=== PATIENT | female | born 2000 | race Caucasian/White ===

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

== ENCOUNTER → 2018-05-02 | Outpatient (CLI) | payer BC ==
--- NOTE | 2018-05-02 16:54 | Diagnostic Imaging Report ---
INDICATION: patient, anatomical survey. TECHNIQUE: Multiple real-time grayscale images were obtained over the gravid uterus. COMPARISON: None during this . FINDINGS: A single live intrauterine fetus is seen measuring 20 weeks 6 days in size by composite measurements. Cervical length is 6 cm. Fetus is in variable presentation. Placenta is anterior and grade 2. The inferior portion of the placenta is very close to the cervical os. heart rate is 144 beats per minute and regular. survey showed normal-appearing kidneys, bladder, stomach, intracranial ventricles, and four-chamber heart view. Three-vessel cord and cord insertion appear normal. spine appeared unremarkable. The maternal adnexa could not be visualized. There is no free fluid. Biometrical measurements are as follows: Biparietal 4.79 cm, age 20 weeks 4 days. Head circumference 17.59 cm, age 20 weeks 1 days. Abdominal circumference 16.39 cm, age 21 weeks 4 days. Femur length 3.44 cm, age 20 weeks 6 days. Sonographic estimate age: 20 weeks 6 days. Sonographic estimated date of delivery: 09/13/2018. Estimated Weight: 394 gm (+/- 58 gm). LMP percentile: 63%. heart rate: 144 beats per minute. number: 1 of 1. IMPRESSION: Single live intrauterine fetus measuring 20 weeks 6 days in size by composite measurements. The placenta is anterior and appears to be at or partially overlying the internal cervical os, recommend followup later in to exclude placenta previa or low-lying placenta. survey showed no detectable anatomic abnormalities. Dictated by: Dictated on workstation # [id number]
== END ==
LOC: RAD 15:28
PROVIDERS: ATTEND Obstetrics & Gynecology
DX: Z36.89 Encounter for other specified antenatal screening (principal); Z3A.20 20 weeks gestation of pregnancy
CPT/HCPCS: 76805

== ENCOUNTER 2018-06-25 21:30 | Outpatient (CLI) | payer BC ==
[~2018-06-25] VITALS: Ht 165.1 cm; Wt 89.0 kg
--- NOTE | 2018-06-25 21:35 | NUR ---
MACKENZIE MILLER presented to unit via ambulatory from ED, accompanied by s/o, with c/o NO MOVEMENT SINCE YESTERDAY. MACKENZIE MILLER weighed, gowned, voided, and to bed. EFHM and TOCO applied, VS taken. MACKENZIE MILLER oriented to bed controls, call light, TV, heat, and A/C controls.
[2018-06-25 22:00] VITALS: BP 131/75
[2018-06-25] MEDS ORDERED: PREN-53 PO (23:07)
[2018-06-25] MEDS ORDERED: ACET-789 PO (23:07)
--- NOTE | 2018-06-25 23:15 | NUR ---
Pt discharge packet given and explained, understanding voiced, denies needs or concerns, noted provided for work upon request. Pt ambulatory off unit at this time, accompanied by s.o.
== END 2018-06-25 23:15 | disposition home or self-care (01) ==
LOC: WSo 21:30 → LDRP 21:31 → WSo 23:15
PROVIDERS: ATTEND Obstetrics & Gynecology
DX: O36.8130 Decreased fetal movements, third trimester, not applicable or unspecified (principal); Z3A.28 28 weeks gestation of pregnancy
CPT/HCPCS: 99213

== ENCOUNTER 2018-08-19 18:13 | Outpatient (CLI) | payer BC ==
[~2018-08-19] VITALS: Ht 167.6 cm; Wt 88.1 kg
--- NOTE | 2018-08-19 18:01 | NUR ---
MACKENZIE MILLER presented to unit via AMBULATORY from HOME, accompanied by S/O, with c/o CONTRACTIONS. MACKENZIE MILLER weighed, gowned, voided, and to bed. EFHM and TOCO applied, VS taken. MACKENZIE MILLER oriented to bed controls, call light, TV, heat, and A/C controls.
[~2018-08-19 18:13] MED LIST changes: +ACET-789 PO
[2018-08-19 18:30] VITALS: BP 121/66
[2018-08-19] MEDS ORDERED: D5 LR IV SOLUTION 1,000 ML IV ONE (19:14)
[2018-08-19] MEDS ORDERED: ONDANSETRON 4 MG/2 ML (SDV) Z0FRAN ONE (19:14)
[2018-08-19 19:16] LABS: BILIRUBIN,URINE NEGATIVE (NEGATIVE); CLARITY,URINE SLIGHTLY CLOUDY; COLOR,URINE AMBER; GLUCOSE, URINE (UA) NEGATIVE (NEGATIVE); KETONES,URINE 2+ (NEGATIVE); LEUKOCYTE ESTERASE ,URINE 1+ (NEGATIVE); NITRITE,URINE NEGATIVE (NEGATIVE); PH,URINE 6 (5-9); PROTEIN,URINE 2+ (NEGATIVE); UROBILINOGEN,URINE 1 MG/DL (NORMAL)
--- NOTE | 2018-08-19 19:16 | NUR ---
DR. WEINBERG NOTIFIED OF PT ARRIVAL, GESTATION, , R C/S, C/O, REVIEW OF STRIP. NEW ORDERS RECEIVED.
[2018-08-19 19:30] LABS: BACTERIA,URINE FEW /HPF; SQUAMOUS EPITHELIAL CELL,UR >50 /HPF
[2018-08-19] MEDS ORDERED: ONDANSETRON 4 MG/2 ML (SDV) Z0FRAN IVP ONE (19:30)
[2018-08-19] MEDS ORDERED: LOPERAMIDE 2 MG (IMODIUM) CAP PO NR (19:30)
[2018-08-19] MEDS ORDERED: D5 LR IV SOLUTION 1,000 ML IV SCH (19:30)
[2018-08-19 20:00] VITALS: BP 115/63
--- NOTE | 2018-08-19 20:09 | NUR ---
lab results called to . no new orders received.
--- NOTE | 2018-08-19 21:10 | NUR ---
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 notified. Discharge order received.
--- NOTE | 2018-08-19 21:30 | NUR ---
Discharge instructions verbalized with pt. pt verbalized understanding. Pt will follow up with on Sunday.
== END 2018-08-19 21:30 | disposition home or self-care (01) ==
LOC: WSo 18:13 → LDRP 18:13 → WSo 21:30
PROVIDERS: ATTEND Obstetrics & Gynecology
DX: O47.03 False labor before 37 completed weeks of gestation, third trimester (principal); Z3A.36 36 weeks gestation of pregnancy
CPT/HCPCS: 81000; 96361; 96374; 99213

== ENCOUNTER 2018-08-27 12:09 | Outpatient (CLI) | payer BC ==
[2018-08-27] VITALS (8 sets, daily range): BP systolic 112–135; BP diastolic 57–83
[~2018-08-27] VITALS: Ht 167.6 cm; Wt 89.4 kg
--- NOTE | 2018-08-27 11:55 | NUR ---
MACKENZIE MILLER presented to unit via ambulation from home, with c/o POSSIBLE WATER BREAK. MACKENZIE MILLER weighed, gowned, voided, and to bed. EFHM and TOCO applied, VS taken. MACKENZIE MILLER oriented to bed controls, call light, TV, heat, and A/C controls.
--- NOTE | 2018-08-27 12:50 | NUR ---
DR. BERMUDEZ REVIEWING STRIP. PLAN TO KEEP NPO AND CONTINUE TO MONITOR.
--- NOTE | 2018-08-27 12:54 | NUR ---
Dr. Saha called and notified of pt arrival, c/o ctx last noc, possible SROM this am around 1000. Pt also c/o N/V and "just not feeling well". notified of FHR, ctx pattern, SVE, nitrazine, VS, and other assessment findings. will review FHR strip and return call with further orders.
--- NOTE | 2018-08-27 13:00 | NUR ---
VOMITED 50 CC BILE COLORED EMESIS. PAPER CHANGE ON MONITOR.
[2018-08-27 13:09] LABS: BILIRUBIN,URINE NEGATIVE (NEGATIVE); CLARITY,URINE SLIGHTLY CLOUDY; COLOR,URINE YELLOW; GLUCOSE, URINE (UA) NEGATIVE (NEGATIVE); KETONES,URINE NEGATIVE (NEGATIVE); LEUKOCYTE ESTERASE ,URINE 3+ (NEGATIVE); NITRITE,URINE NEGATIVE (NEGATIVE); PH,URINE 8 (5-9); PROTEIN,URINE NEGATIVE (NEGATIVE); UROBILINOGEN,URINE NORMAL (NORMAL)
[2018-08-27 13:21] LABS: BACTERIA,URINE TRACE /HPF
--- NOTE | 2018-08-27 15:15 | NUR ---
Dr. Saha contacted and updated on pt status. Pt inquiring about plan, wondering about finding a crystallographer for other child. order to recheck cervix, if no cervical change and FHR reassuring, pt may D/C home.
--- NOTE | 2018-08-27 16:15 | NUR ---
Dr Saha notified of repeat SVE and UA results. Order to call in Keflex 500mg qid x7 days and d/c pt home.
--- NOTE | 2018-08-27 16:42 | NUR ---
Micheline called to [facility] in [place].
[2018-08-27] MEDS ORDERED: CEPH-507 PO (16:48)
--- NOTE | 2018-08-27 16:55 | NUR ---
Discharge instructions explained to pt with copy provided to pt. Pt notified of abx called to [facility] in [place]. Pt verbalizes understanding of instruction and signs to verify. Denies questions or concerns at this time. Ambulates self off unit accompanied by S.O. to private vehicle with all personal belongings. No s/s of distress noted.
--- NOTE | 2018-09-03 17:56 | Physician Query-Final Dx ---
YUMIKO LIGHT 09/03/18 1755: Clinic Account Progress/Dx Physician Query: Please give diagnosis Need dx and weeks of gestation Date of Service August 27, 2018 at 12:09 NEY BERMUDEZ DO 09/03/18 2109: Clinic Account Progress/Dx DIAGNOSIS: Diagnosis 37 weeks YUMIKO LIGHT September 03, 2018 17:55 NEY BERMUDEZ DO September 03, 2018 21:09
== END 2018-08-27 16:55 | disposition home or self-care (01) ==
LOC: WSo 12:09 → LDRP 12:10 → WSo 16:55
PROVIDERS: ATTEND Obstetrics & Gynecology
DX: O99.89 Other specified diseases and conditions complicating pregnancy, childbirth and the puerperium (principal); Z3A.37 37 weeks gestation of pregnancy
CPT/HCPCS: 81000; 87088; 99214

== ENCOUNTER 2018-09-04 14:30 | Outpatient (CLI) | payer BC, MEDICAID ==
[~2018-09-04] VITALS: Ht 167.6 cm; Wt 90.0 kg
[~2018-09-04 14:30] MED LIST changes: +CEPH-507 PO
[2018-09-04 14:44] VITALS: BP 135/91
== END 2018-09-04 15:32 | disposition home or self-care (01) ==
LOC: PREOP 14:30
PROVIDERS: ATTEND Obstetrics & Gynecology
DX: Z01.818 Encounter for other preprocedural examination (principal)
CPT/HCPCS: 87081

== ENCOUNTER 2018-09-04 16:32 | Outpatient (CLI) | payer BC, MEDICAID ==
[~2018-09-04] VITALS: Ht 167.6 cm; Wt 90.0 kg
--- NOTE | 2018-09-04 14:05 | NUR ---
MACKENZIE MILLER presented to unit via AMBULATION from DR CURTIS GARCIA, accompanied by S/O, with c/o ELEVATED BLOOD PRESSURE. MACKENZIE MILLER weighed, gowned, voided, and to bed. EFHM and TOCO applied, VS taken. MACKENZIE MILLER oriented to bed controls, call light, TV, heat, and A/C controls. Addendum: 09/04/18 at 1711 by LILY JIMENEZ RN WRONG TIME, 1620
--- NOTE | 2018-09-04 14:15 | NUR ---
INITIAL ASSESSMENT COMPLETED, VSS, NO DISTRESS NOTED, SEE INTERVENTIONS FOR DETAILED ASSESSMENTS, PT REPORTS N/V/D SINCE LAST SUNDAY, X 2-3 TIMES AT DAY. PT DENIES CONTRACTIONS, BLEEDING, RECENT INTERCOURSE OF DECREASED MOVEMENT. PLAN OF CARE EXPLAINED TO PT/SO, NO QUESTIONS NOTED, PT VERBALIZES UNDERSTANDING. Addendum: 09/04/18 at 1711 by LILY JIMENEZ RN CRISTINA TIME, 1640
[2018-09-04 16:29] VITALS: BP 130/72
[2018-09-04] MEDS ORDERED: D5 LR IV SOLUTION 1,000 ML IV ONE (16:44)
[2018-09-04 16:51] LABS: CLARITY,URINE SLIGHTLY CLOUDY; COLOR,URINE YELLOW; GLUCOSE, URINE (UA) NEGATIVE (NEGATIVE); KETONES,URINE 1+ (NEGATIVE); LEUKOCYTE ESTERASE ,URINE 3+ (NEGATIVE); NITRITE,URINE NEGATIVE (NEGATIVE); PH,URINE 6 (5-9); PROTEIN,URINE 2+ (NEGATIVE); UROBILINOGEN,URINE 4 MG/DL (NORMAL)
[2018-09-04] MEDS ORDERED: D5 LR IV SOLUTION 1,000 ML IV SCH (17:00)
[2018-09-04 17:05] LABS: BACTERIA,URINE FEW /HPF; BILIRUBIN,URINE 1+ (NEGATIVE); SQUAMOUS EPITHELIAL CELL,UR 25-50 /HPF
[2018-09-04 17:08] LABS: BASOPHILS % (AUTO) 0 % (0-10); EOSINOPHILS # (AUTO) 0.1 10^3/uL (0.0-0.3); EOSINOPHILS % (AUTO) 1 % (0-10); HEMATOCRIT 31 % (35-52); HEMOGLOBIN 10.4 G/DL (11.5-16.0); LYMPHOCYTES # (AUTO) 1.4 X 10^3 (1.0-4.0); LYMPHOCYTES % (AUTO) 17 % (12-44); MEAN CORPUSCULAR HEMOGLOBIN 26 PG (25-34); MEAN CORPUSCULAR HGB CONC 34 G/DL (32-36); MEAN CORPUSCULAR VOLUME 77 FL (80-99); MEAN PLATELET VOLUME 11.5 FL (7.4-10.4); MONOCYTES # (AUTO) 0.7 X 10^3 (0.0-1.0); MONOCYTES % (AUTO) 9 % (0-12); NEUTROPHILS % (AUTO) 73 % (42-75); PLATELET COUNT 217 10^3/uL (130-400); RED CELL DISTRIBUTION WIDTH 13.2 % (10.0-14.5); WHITE BLOOD COUNT 8.3 10^3/uL (4.3-11.0)
[2018-09-04 17:27] LABS: ALANINE AMINOTRANSFERASE 17 U/L (0-55); ALBUMIN 3.1 GM/DL (3.2-4.5); ALKALINE PHOSPHATASE 164 U/L (40-136); BILIRUBIN,TOTAL 0.5 MG/DL (0.1-1.0); BUN/CREATININE RATIO 8; CALCIUM 8.3 MG/DL (8.5-10.1); CARBON DIOXIDE 19 MMOL/L (21-32); CHLORIDE 106 MMOL/L (98-107); CREATININE SERUM 0.61 MG/DL (0.60-1.30); GFR ESTIMATED > 60; GLUCOSE 94 MG/DL (70-105); POTASSIUM 3.5 MMOL/L (3.6-5.0); SODIUM 138 MMOL/L (135-145)
[2018-09-04 17:30] VITALS: BP 117/59
[2018-09-04 18:00] VITALS: BP 117/56
[2018-09-04] MEDS ORDERED: ONDANSETRON 4 MG/2 ML (SDV) Z0FRAN IVP ONE (18:30)
--- NOTE | 2018-09-04 18:50 | NUR ---
PT MOVED TO [facility] WITH FAMILY FOR TORNADO WARNING.
[2018-09-04 18:51] VITALS: BP 121/61
[2018-09-04] MEDS ORDERED: CALCIUM CARBONATE 500 MG (TUMS) TAB.CHEW PO NR (19:15)
--- NOTE | 2018-09-04 20:54 | NUR ---
Pt ate and is feeling better. Orders received to discharge home. IV removed. Discharge instructions given. Pt verbalized understanding. Discharged with S/O by private vehicle.
--- NOTE | 2018-09-06 12:17 | Physician Query-Final Dx ---
ANDRES KAY 09/06/18 1217: Clinic Account Progress/Dx Physician Query: Dr Bermudez Please give a diagnosis and also include the weeks of gestation thank you Date of Service September 04, 2018 at 16:32 NEY BERMUDEZ DO 09/06/18 2145: Clinic Account Progress/Dx DIAGNOSIS: Diagnosis 38 weeks gestational htn nausea decreased movement ANDRES KAY September 06, 2018 12:17 NEY BERMUDEZ DO September 06, 2018 21:45
== END 2018-09-04 20:54 ==
LOC: WSo 16:32 → LDRP 16:32 → WSo 20:54
PROVIDERS: ATTEND Obstetrics & Gynecology
DX: O13.3 Gestational [pregnancy-induced] hypertension without significant proteinuria, third trimester (principal); O21.2 Late vomiting of pregnancy; O36.8130 Decreased fetal movements, third trimester, not applicable or unspecified; Z3A.38 38 weeks gestation of pregnancy
CPT/HCPCS: 36415; 80053; 81000; 82570; 84156; 84550; 85025; 86850; 86900; 86901; 87088; 96361; 96374; 99213

== ENCOUNTER 2018-09-10 10:10 | Inpatient (IN) | payer BC, MEDICAID ==
[2018-09-10] VITALS (7 sets, daily range): BP systolic 102–121; BP diastolic 67–93
[~2018-09-10] VITALS: Ht 167.6 cm; Wt 89.0 kg
--- NOTE | 2018-09-10 10:10 | NUR ---
MACKENZIE MILLER presented to unit via AMBULATORY from HOME, accompanied by S/O FOR SCHEDULED SECTION. MACKENZIE MILLER weighed, gowned, voided, and to bed. EFHM and TOCO applied, VS taken. MACKENZIE MILLER oriented to bed controls, call light, TV, heat, and A/C controls.
[2018-09-10] MEDS ORDERED: LACTATED RINGERS 1,000 ML IV PRN (10:20)
[2018-09-10] MEDS ORDERED: LACTATED RINGERS 1,000 ML IV ONE (10:22)
[2018-09-10] MEDS ORDERED: FAMOTIDINE 20MG/2ML IV (PEPCID) ONE (10:22)
[2018-09-10] MEDS ORDERED: METOCLOPRAMIDE INJ 10 MG/2 ML (REGLAN) ONE (10:22)
[2018-09-10] MEDS ORDERED: CITRIC ACID/SOB CIT (BICITRA) 30 ML UDC ONE (10:22)
[2018-09-10] MEDS ORDERED: METOCLOPRAMIDE INJ 10 MG/2 ML (REGLAN) IV ONE (10:30)
[2018-09-10] MEDS ORDERED: ceFAZolin 2 GM/50 ML NS 50 ML IV ONE (10:30)
[2018-09-10] MEDS ORDERED: FAMOTIDINE 20MG/2ML IV (PEPCID) IV ONE (10:30)
[2018-09-10] MEDS ORDERED: CITRIC ACID/SOB CIT (BICITRA) 30 ML UDC PO ONE (10:30)
[2018-09-10] MEDS ORDERED: CATHETER FLUSH 10 ML SYR IV PRN (10:30)
[2018-09-10 11:06] LABS: BASOPHILS % (AUTO) 0 % (0-10); EOSINOPHILS % (AUTO) 0 % (0-10); HEMATOCRIT 32 % (35-52); HEMOGLOBIN 10.6 G/DL (11.5-16.0); LYMPHOCYTES # (AUTO) 1.1 X 10^3 (1.0-4.0); LYMPHOCYTES % (AUTO) 12 % (12-44); MEAN CORPUSCULAR HEMOGLOBIN 25 PG (25-34); MEAN CORPUSCULAR HGB CONC 33 G/DL (32-36); MEAN CORPUSCULAR VOLUME 77 FL (80-99); MEAN PLATELET VOLUME 11.7 FL (7.4-10.4); MONOCYTES # (AUTO) 0.6 X 10^3 (0.0-1.0); MONOCYTES % (AUTO) 6 % (0-12); NEUTROPHILS # (AUTO) 7.3 X 10^3 (1.8-7.8); NEUTROPHILS % (AUTO) 81 % (42-75); PLATELET COUNT 225 10^3/uL (130-400); RED CELL DISTRIBUTION WIDTH 13.3 % (10.0-14.5)
--- OUTSIDE RECORDS SUMMARY | 2018-09-10 11:10 | XMS REPORT ---
Author Author DASHAWN BAUER Organization [facility] Address [address] [place] [address] Care Team Providers Care Phonograph Cartridge Assembler Name Role Phone DASHAWN BAUER Unavailable PROBLEMS Type Condition ICD9-CM Code ATV63-PX Code Onset Dates Condition Status SNOMED Code Problem Mixed obsessional thoughts and acts F42.2 Active 91152136 Problem Current mild episode of major depressive disorder without prior episode F32.0 Active 86231451 Problem Chronic otitis externa of both ears, unspecified type H60.63 Active 73010420 Problem Anxiety F41.9 Active 00889230 Problem Reactive depression F32.9 Active 16320344 Problem Gastroesophageal reflux disease, esophagitis presence not specified K21.9 Active 083595769 ALLERGIES No Information ENCOUNTERS Encounter Location Date Diagnosis [place] [id number] [place] [address] [id number] Nov, Abdominal pain, unspecified abdominal location R10.9 and Anxiety F41.9 [address] [id number] [place] [address] [id number] Oct, [place] [id number] [place] [address] [id number] Oct, test negative Z32.02 [facility] [id number] [place] [address] [id number] Oct, Acute diffuse otitis externa of left ear H60.312 [place] [id number] [place] [address] [id number] Oct, Acute diffuse otitis externa of right ear H60.311 [place] [id number] [place] [address] [id number] Sep, Sore throat J02.9 and Acute diffuse otitis externa of right ear H60.[address] [place] [id number] Sep, [facility] [id number] [place] [address] [id number] Sep, Sore throat J02.9 and Acute diffuse otitis externa of right ear H60.311 [facility] [address] [id number] Sep, [address] [id number] Sep, Anxiety F41.9 ; Mixed obsessional thoughts and acts F42.2 and Current mild episode of major depressive disorder without prior episode F32.[address] [id number] August, Cough R05 ; Acute non-recurrent maxillary sinusitis J01.00 and Acute diffuse otitis externa of left ear H60.[address] [id number] Jun, Nausea R11.0 ; CVA tenderness M54.9 ; Acute cystitis without hematuria N30.00 and RUQ pain R10.11 [facility] [address] [id number] Jun, Anxiety F41.[address] [id number] Jun, [facility] [address] [id number] May, [facility] [id number] [place] [phone] Apr, [facility] [id number] [place] [address] [id number] Apr, Nonintractable episodic headache, unspecified headache type R51 and Dehydration E86.[address] [facility] [id number] [place] [address] Apr, Other viral agents as the cause of diseases classified elsewhere B97.89 and Acute upper respiratory infection, unspecified J06.9 [facility] [address] [place] [address] Mar, care, first in third trimester Z34.03 ; - induced hypertension in third trimester O13.3 and 38 weeks gestation of Z3A.38 [place] [id number] [place] [address] Feb, 37 weeks gestation of Z3A.37 and care, first in third trimester Z34.03 [place] [id number] [place] [address] [id number] Feb, 36 weeks gestation of Z3A.36 and care in third trimester Z34.93 [place] [address] [address] Feb, -induced hypertension in third trimester O13.3 ; Gastroesophageal reflux disease, esophagitis presence not specified K21.9 and 35 weeks gestation of Z3A.35 [place] [address] [address] Feb, -induced hypertension in third trimester O13.3 ; Chronic otitis externa of both ears, unspecified type H60.63 and 34 weeks gestation of Z3A.34 [place] [id number] [place] [address] Jan, Patient is a currently breast-feeding mother Z39.1 [place] [id number] [place] [phone] Jan, -induced hypertension in third trimester O13.3 and 32 weeks gestation of Z3A.32 [place] [id number] [place] [address] [id number] Jan, [place] [address] [address] Jan, 30 weeks gestation of Z3A.30 ; -induced hypertension in third trimester O13.3 and Encounter for immunization Z23 [place] [id number] [place] [address] [id number] Jan, -induced hypertension in third trimester O13.3 [facility] [place] [address] [id number] [id number] Jan, [facility] [place] [address] [id number][place] [id number] Jan, [facility] [place] [address] [id number][place] [id number] Dec, 28 weeks gestation of Z3A.28 and -induced hypertension in third trimester O13.3 [facility] [place] [address] [id number][place] [id number] Dec, [facility] [address] [address] Dec, [facility] [place] [id number][place] [id number] Dec, [facility] [id number][place] [phone] Dec, care, first in second trimester Z34.02 [facility] [address] [address] Dec, care, first in second trimester Z34.02 [facility] [id number][place] [id number] Dec, 25 weeks gestation of Z3A.25 [facility] [address] [id number] [place] [address] Nov, [facility] [id number][place] [id number] Nov, 21 weeks gestation of Z3A.21 and Evaluate anatomy not seen on prior sonogram Z36 [facility] [place] [address] [id number][place] [id number] Nov, [facility] [place] [id number][place] [id number] Oct, 17 weeks gestation of Z3A.17 and Second trimester Z34.92 [facility] [place] [address] [id number][place] [phone] Oct, [facility] [place] [id number] [place] [address] [id number] Sep, [facility] [id number] [place] [address] [id number] Sep, care, first in first trimester Z34.01 ; 13 weeks gestation of Z3A.13 ; Nausea and vomiting during O21.9 ; Other infective acute otitis externa of left ear H60.392 and heartbeat not heard O76 [facility] [id number] [place] [address] [id number] August, Visit for TB skin test Z11.1 and Screening for tuberculosis Z11.1 [facility] [id number] [place] [address] [id number] August, [facility] [id number] [place] [address] [id number] August, [facility] [id number] [place] [address] [id number] August, Normal , first Z34.00 ; 8 weeks gestation of Z3A.08 and Nausea and vomiting in O21.9 [facility] [id number] [place] [address] [id number] Jul, [facility] [place] [address] [id number] Jul, Low back pain at multiple sites M54.5 ; Other specified related conditions, first trimester O26.891 and Constipation by delayed colonic transit K59.01 [facility] [id number] [place] [address] [id number] Jul, test-positive Z32.01 [facility] [id number] [place] [address] [id number] Jul, [facility] [id number] [place] [address] [id number] Apr, Anxiety F41.9 and Irritability and anger R45.4 [facility] [id number] [place] [address] [id number] Apr, Anxiety F41.9 [facility] [id number] [place] [address] [id number] Mar, [address] [place] [address] [id number] Mar, Acute non-recurrent maxillary sinusitis J01.00 and Bronchitis J40 [place] [id number] [place] [address] [id number] Mar, CVA tenderness M54.9 ; Acute diffuse otitis externa of both ears H60.313 ; Non- intractable vomiting with nausea, unspecified vomiting type R11.2 ; Date of last menstrual period (LMP) unknown Z78.9 ; Anxiety F41.9 and Anhedonia R45.84 [place] [id number] [place] [address] [id number] Mar, [facility] [id number] [place] [address] Mar, Right upper quadrant abdominal pain R10.[address] [id number] Jan, Bronchitis J40 and Acute suppurative otitis media of left ear without spontaneous rupture of tympanic membrane, recurrence not specified H66.002 [place] [id number] [place] [address] [id number] Sep, Insect bite, initial encounter W57.XXXA and Erythema L53.9 [place] [id number] [place] [address] [id number] May, Ear pain, right H92.[address] [id number] Dec, Otitis externa 380.10 and Sore throat 462 [facility] [address] [place] [address] Nov, Sports physical V70.3 ; Exercise counseling V65.41 and Dietary counseling V65.3 IMMUNIZATIONS No Known Immunizations SOCIAL HISTORY Never Assessed REASON FOR VISIT ear pain PLAN OF CARE VITAL SIGNS MEDICATIONS Medication Instructions Dosage Frequency Start Date End Date Duration Status Ciprodex 0.3-0.1 % Otic Twice a day 4 drops into affected ear 12h 15 Aug, 2017 07 days Active Amoxicillin-Pot Clavulanate 875-125 MG Orally every 12 hrs 1 tablet 12h 13 Oct, 2017 Oct, 10 day(s) Active RESULTS No Results PROCEDURES No Known procedures INSTRUCTIONS MEDICATIONS ADMINISTERED No Known Medications MEDICAL (GENERAL) HISTORY Type Description Date Medical History Mononucleosis Medical History Hearing Loss Medical History Rh negative state in antepartum period, first trimester Medical History ENT consult 10/31/17: chronic otitis externa-ciprodex powder placed. Surgical History section Hospitalization History childbirth only
--- OUTSIDE RECORDS SUMMARY | 2018-09-10 11:10 | XMS REPORT ---
Author Author DASHAWN BAUER Organization [facility] Address [address] [place] [address] Care Team Providers Care Research/Program Director Name Role Phone DASHAWN BAUER Unavailable PROBLEMS Type Condition ICD9-CM Code LRS79-VY Code Onset Dates Condition Status SNOMED Code Problem Mixed obsessional thoughts and acts F42.2 Active 09046479 Problem Current mild episode of major depressive disorder without prior episode F32.0 Active 22127539 Problem Chronic otitis externa of both ears, unspecified type H60.63 Active 32313199 Problem Anxiety F41.9 Active 40817588 Problem Reactive depression F32.9 Active 99947625 Problem Gastroesophageal reflux disease, esophagitis presence not specified K21.9 Active 693564085 ALLERGIES No Information ENCOUNTERS Encounter Location Date Diagnosis [place] [id number] [place] [address] [id number] Nov, Abdominal pain, unspecified abdominal location R10.9 and Anxiety F41.9 [place] [id number] [place] [address] [id number] Oct, [place] [address] [place] [address] [id number] Oct, test negative Z32.02 [facility] [id number] [place] [address] [id number] Oct, Acute diffuse otitis externa of left ear H60.312 [place] [address] [place] [address] [id number] Oct, Acute diffuse otitis externa of right ear H60.311 [place] [address] [place] [address] [id number] Sep, Sore throat J02.9 and Acute diffuse otitis externa of right ear H60.[address] [place] [id number] Sep, [facility] [id number] [place] [address] [id number] Sep, Sore throat J02.9 and Acute diffuse otitis externa of right ear H60.311 [facility] [address] [id number] Sep, [address] [id number] Sep, Anxiety F41.9 ; Mixed obsessional thoughts and acts F42.2 and Current mild episode of major depressive disorder without prior episode F32.[address] [id number] August, Cough R05 ; Acute non-recurrent maxillary sinusitis J01.00 and Acute diffuse otitis externa of left ear H60.[address] [id number] Jun, Nausea R11.0 ; CVA tenderness M54.9 ; Acute cystitis without hematuria N30.00 and RUQ pain R10.11 [facility] [address] [id number] Jun, Anxiety F41.[address] [id number] Jun, [facility] [address] [id number] May, [facility] [id number] [place] [phone] Apr, [facility] [id number] [place] [address] [id number] Apr, Nonintractable episodic headache, unspecified headache type R51 and Dehydration E86.0 [facility] [id number] [place] [phone] Apr, Other viral agents as the cause of diseases classified elsewhere B97.89 and Acute upper respiratory infection, unspecified J06.9 [facility] [address] [place] [address] Mar, care, first in third trimester Z34.03 ; - induced hypertension in third trimester O13.3 and 38 weeks gestation of Z3A.38 [place] [id number] [place] [phone] Feb, 37 weeks gestation of Z3A.37 and care, first in third trimester Z34.03 [place] [id number] [place] [address] [id number] Feb, 36 weeks gestation of Z3A.36 and care in third trimester Z34.93 [place] [address] [address] Feb, -induced hypertension in third trimester O13.3 ; Gastroesophageal reflux disease, esophagitis presence not specified K21.9 and 35 weeks gestation of Z3A.35 [place] [address] [address] Feb, -induced hypertension in third trimester O13.3 ; Chronic otitis externa of both ears, unspecified type H60.63 and 34 weeks gestation of Z3A.34 [place] [id number] [place] [address] Jan, Patient is a currently breast-feeding mother Z39.1 [place] [id number] [place] [phone] Jan, -induced hypertension in third trimester O13.3 and 32 weeks gestation of Z3A.32 [place] [id number] [place] [address] [id number] Jan, [place] [address] [address] Jan, 30 weeks gestation of Z3A.30 ; -induced hypertension in third trimester O13.3 and Encounter for immunization Z23 [place] [id number] [place] [address] [id number] Jan, -induced hypertension in third trimester O13.3 [facility] [place] [address] [id number] [place] [id number] Jan, [facility] [place] [address] [id number] [place] [id number] Jan, [facility] [place] [address] [id number] [place] [id number] Dec, 28 weeks gestation of Z3A.28 and -induced hypertension in third trimester O13.3 [facility] [place] [address] [id number] [place] [id number] Dec, [facility] [address], [place] [address] Dec, [facility] [place] [id number] [place] [id number] Dec, [facility] [id number] [place] [id number] Dec, care, first in second trimester Z34.02 [facility] [address]100[place], [place] [address] Dec, care, first in second trimester Z34.02 [facility] [id number] [place] [id number] Dec, 25 weeks gestation of Z3A.25 [facility] [address] [id number] [place] [address] Nov, [facility] [id number] [place] [id number] Nov, 21 weeks gestation of Z3A.21 and Evaluate anatomy not seen on prior sonogram Z36 [facility] [place] [address] [id number] [place] [id number] Nov, [facility] [place] [id number] [place] [id number] Oct, 17 weeks gestation of Z3A.17 and Second trimester Z34.92 [facility] [place] [address] [id number] [place] [id number] Oct, [facility] [place] [id number] [place] [address] [id number] Sep, [facility] [id number] [place] [address] [id number] Sep, care, first in first trimester Z34.01 ; 13 weeks gestation of Z3A.13 ; Nausea and vomiting during O21.9 ; Other infective acute otitis externa of left ear H60.392 and heartbeat not heard O76 [facility] [id number] [place] [address] [id number] August, Visit for TB skin test Z11.1 and Screening for tuberculosis Z11.1 [facility] [id number] [place] [address] [id number] August, [facility] [id number] [place] [address] [id number] August, Normal , first Z34.00 ; 8 weeks gestation of Z3A.08 and Nausea and vomiting in O21.9 [facility] [id number] [place] [address] [id number] August, [facility] [id number] [place] [address] [id number] Jul, [facility] [place] [address] [id number] Jul, Low back pain at multiple sites M54.5 ; Other specified related conditions, first trimester O26.891 and Constipation by delayed colonic transit K59.01 [facility] [id number] [place] [address] [id number] Jul, test-positive Z32.01 [facility] [id number] [place] [address] [id number] Jul, [facility] [id number] [place] [address] [id number] Apr, Anxiety F41.9 and Irritability and anger R45.4 [facility] [id number] [place] [address] [id number] Apr, Anxiety F41.9 [facility] [id number] [place] [address] [id number] Mar, [address] [place] [address] [id number] Mar, Acute non-recurrent maxillary sinusitis J01.00 and Bronchitis J40 [place] [address] [place] [address] [id number] Mar, CVA tenderness M54.9 ; Acute diffuse otitis externa of both ears H60.313 ; Non- intractable vomiting with nausea, unspecified vomiting type R11.2 ; Date of last menstrual period (LMP) unknown Z78.9 ; Anxiety F41.9 and Anhedonia R45.84 [place] [address] [place] [address] [id number] Mar, [facility] [address] [address] Mar, Right upper quadrant abdominal pain R10.[address] [id number] Jan, Bronchitis J40 and Acute suppurative otitis media of left ear without spontaneous rupture of tympanic membrane, recurrence not specified H66.002 [place] [address] [place] [address] [id number] Sep, Insect bite, initial encounter W57.XXXA and Erythema L53.9 [place] [address] [place] [address] [id number] May, Ear pain, right H92.[address] [id number] Dec, Otitis externa 380.10 and Sore throat 462 [facility] [address] [place] [address] Nov, Sports physical V70.3 ; Exercise counseling V65.41 and Dietary counseling V65.3 IMMUNIZATIONS No Known Immunizations SOCIAL HISTORY Never Assessed REASON FOR VISIT controlled refill PLAN OF CARE VITAL SIGNS MEDICATIONS Unknown [...]
--- OUTSIDE RECORDS SUMMARY | 2018-09-10 11:10 | XMS REPORT ---
Author Author DASHAWN BAUER Organization [facility] Address [address] [place] [address] Care Team Providers Care Director Of Exhibits Name Role Phone DASHAWN BAUER Unavailable PROBLEMS Type Condition ICD9-CM Code ZLR09-WQ Code Onset Dates Condition Status SNOMED Code Problem Mixed obsessional thoughts and acts F42.2 Active 50317127 Problem Current mild episode of major depressive disorder without prior episode F32.0 Active 69096272 Problem Chronic otitis externa of both ears, unspecified type H60.63 Active 02289659 Problem Anxiety F41.9 Active 86383781 Problem Reactive depression F32.9 Active 85609488 Problem Gastroesophageal reflux disease, esophagitis presence not specified K21.9 Active 043197365 ALLERGIES No Information ENCOUNTERS Encounter Location Date Diagnosis [place] [id number] [place] [address] [id number] Nov, Abdominal pain, unspecified abdominal location R10.9 and Anxiety F41.9 [address] [id number] [place] [address] [id number] Oct, [place] [id number] [place] [address] [id number] Oct, test negative Z32.02 [facility] [id number] [place] [address] [id number] Oct, Acute diffuse otitis externa of left ear H60.312 [address] [id number] [place] [address] [id number] Oct, Acute diffuse otitis externa of right ear H60.311 [address] [id number] [place] [address] [id number] Sep, Sore throat J02.9 and Acute diffuse otitis externa of right ear H60.[address] [place] [id number] Sep, [facility] [id number] [place] [address] [id number] Sep, Sore throat J02.9 and Acute diffuse otitis externa of right ear H60.311 [facility] [address] [id number] Sep, [address] [id number] Sep, Anxiety F41.9 ; Mixed obsessional thoughts and acts F42.2 and Current mild episode of major depressive disorder without prior episode F32.[address] [id number] August, Cough R05 ; Acute non-recurrent maxillary sinusitis J01.00 and Acute diffuse otitis externa of left ear H60.[address] [id number] Jun, Nausea R11.0 ; CVA tenderness M54.9 ; Acute cystitis without hematuria N30.00 and RUQ pain R10.11 [facility] [address] [id number] Jun, Anxiety F41.[address] [id number] Jun, [facility] [address] [id number] May, [facility] [id number] [place] [address] Apr, [facility] [id number] [place] [address] [id number] Apr, Nonintractable episodic headache, unspecified headache type R51 and Dehydration E86.0 [facility] [id number] [place] [phone] Apr, Other viral agents as the cause of diseases classified elsewhere B97.89 and Acute upper respiratory infection, unspecified J06.9 [facility] [address] [place] [address] Mar, care, first in third trimester Z34.03 ; - induced hypertension in third trimester O13.3 and 38 weeks gestation of Z3A.38 [place] [id number] [place] [address] Feb, 37 weeks gestation of Z3A.37 and care, first in third trimester Z34.03 [address] [id number] [place] [address] [id number] Feb, 36 weeks gestation of Z3A.36 and care in third trimester Z34.93 [place] [address] [address] Feb, -induced hypertension in third trimester O13.3 ; Gastroesophageal reflux disease, esophagitis presence not specified K21.9 and 35 weeks gestation of Z3A.35 [place] [address] [address] Feb, -induced hypertension in third trimester O13.3 ; Chronic otitis externa of both ears, unspecified type H60.63 and 34 weeks gestation of Z3A.34 [place] [id number] [place] [address] Jan, Patient is a currently breast-feeding mother Z39.1 [place] [id number] [place] [phone] Jan, -induced hypertension in third trimester O13.3 and 32 weeks gestation of Z3A.32 [id number] [place] [address] [id number] Jan, [place] [address] [address] Jan, 30 weeks gestation of Z3A.30 ; -induced hypertension in third trimester O13.3 and Encounter for immunization Z23 [address] [id number] [place] [address] [id number] Jan, -induced hypertension in third trimester O13.3 [facility] [place] [address] [id number][place] [id number] Jan, [facility] [place] [address] [id number], [place] [id number] Jan, [facility] [place] [address] [id number][place] [id number] Dec, 28 weeks gestation of Z3A.28 and -induced hypertension in third trimester O13.3 [facility] [place] [address] [id number][place] [id number] Dec, [facility] [address] [address] Dec, [facility] [place] [id number] [id number] Dec, [facility] [place] [id number] [id number] Dec, care, first in second trimester Z34.02 [facility] [address] [address] Dec, care, first in second trimester Z34.02 [facility] [place] [id number], [place] [id number] Dec, 25 weeks gestation of Z3A.25 [facility] [address] [id number] [place] [address] Nov, [facility] [place] [id number], [place] [id number] Nov, 21 weeks gestation of Z3A.21 and Evaluate anatomy not seen on prior sonogram Z36 [facility] [place] [address] [id number][place] [id number] Nov, [facility] [place] [id number], [place] [id number] Oct, 17 weeks gestation of Z3A.17 and Second trimester Z34.92 [facility] [place] [address] [id number], [place] [id number] Oct, [facility] [place] [id number] [place] [address] [id number] Sep, [facility] [id number] [place] [address] [id number] Sep, care, first in first trimester Z34.01 ; 13 weeks gestation of Z3A.13 ; Nausea and vomiting during O21.9 ; Other infective acute otitis externa of left ear H60.392 and heartbeat not heard O76 [facility] [id number] [place] [address] [id number] August, Visit for TB skin test Z11.1 and Screening for tuberculosis Z11.1 [facility] [place] [id number] [place] [address] [id number] August, [facility] [id number] [place] [address] [id number] August, Normal , first Z34.00 ; 8 weeks gestation of Z3A.08 and Nausea and vomiting in O21.9 [facility] [id number] [place] [address] [id number] August, [facility] [id number] [place] [address] [id number] Jul, [facility] [place] [address] [id number] Jul, Low back pain at multiple sites M54.5 ; Other specified related conditions, first trimester O26.891 and Constipation by delayed colonic transit K59.01 [facility] [place] [id number] [place] [address] [id number] Jul, test-positive Z32.01 [facility] [place] [id number] [place] [address] [id number] Jul, [facility] [id number] [place] [address] [id number] Apr, Anxiety F41.9 and Irritability and anger R45.4 [facility] [place] [id number] [place] [address] [id number] Apr, Anxiety F41.9 [facility] [id number] [place] [address] [id number] Mar, [address] [place] [address] [id number] Mar, Acute non-recurrent maxillary sinusitis J01.00 and Bronchitis J40 [address] [id number] Mar, CVA tenderness M54.9 ; Acute diffuse otitis externa of both ears H60.313 ; Non- intractable vomiting with nausea, unspecified vomiting type R11.2 ; Date of last menstrual period (LMP) unknown Z78.9 ; Anxiety F41.9 and Anhedonia R45.84 [id number] [place] [address] [id number] Mar, [facility] [address] [address] Mar, Right upper quadrant abdominal pain R10.[address] [id number] Jan, Bronchitis J40 and Acute suppurative otitis media of left ear without spontaneous rupture of tympanic membrane, recurrence not specified H66.002 [address] [id number] [place] [address] [id number] Sep, Insect bite, initial encounter W57.XXXA and Erythema L53.9 [place] [id number] [place] [address] [id number] May, Ear pain, right H92.[address] [id number] Dec, Otitis externa 380.10 and Sore throat 462 [facility] [address] [place] [address] Nov, Sports physical V70.3 ; Exercise counseling V65.41 and Dietary counseling V65.3 IMMUNIZATIONS No Known Immunizations SOCIAL HISTORY Never Assessed REASON FOR VISIT Lab (walk-in) Hollis GRAVES PLAN OF CARE VITAL SIGNS MEDICATIONS Unknown Medications RESULTS Name Result Date Reference Range TEST, URINE (IN HOUSE) 2017-10-31 RESULTS negative Lot # [id number] Control positive Exp date 04/15/19 PROCEDURES Procedure Date Ordered Result Body Site URINE TEST October 31, 2017 INSTRUCTIONS MEDICATIONS ADMINISTERED No Known Medications MEDICAL (GENERAL) HISTORY Type Description Date Medical History Mononucleosis Medical History Hearing Loss Medical History Rh negative state in antepartum period, first trimester Medical History ENT consult 10/31/17: chronic otitis externa-ciprodex powder placed. Surgical History section Hospitalization History childbirth only
--- OUTSIDE RECORDS SUMMARY | 2018-09-10 11:11 | XMS REPORT ---
Author Author DASHAWN BAUER Organization 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 Phone DASHAWN BAUER Unavailable PROBLEMS Type Condition ICD9-CM Code TEO50-FX Code Onset Dates Condition Status SNOMED Code Problem Mixed obsessional thoughts and acts F42.2 Active 95893005 Problem Current mild episode of major depressive disorder without prior episode F32.0 Active 66666548 Problem Chronic otitis externa of both ears, unspecified type H60.63 Active 27061820 Problem Anxiety F41.9 Active 11144965 Problem Reactive depression F32.9 Active 49927766 Problem Gastroesophageal reflux disease, esophagitis presence not specified K21.9 Active 461760995 ALLERGIES No Known Allergies ENCOUNTERS Encounter Location Date Diagnosis [place] [id number] [place] [address] [id number] Nov, Abdominal pain, unspecified abdominal location R10.9 and Anxiety F41.9 [address] [id number] [place] [address] [id number] Oct, [place] [id number] [place] [address] [id number] Oct, test negative Z32.02 [facility] [id number] [place] [address] [id number] Oct, Acute diffuse otitis externa of left ear H60.[address] [id number] Oct, Acute diffuse otitis externa of right ear H60.311 [place] [id number] [place] [address] [id number] Sep, Sore throat J02.9 and Acute diffuse otitis externa of right ear H60.311 [place] [address] [place] [id number] Sep, [place] [id number] [place] [address] [id number] Sep, Sore throat J02.9 and Acute diffuse otitis externa of right ear H60.[address] [id number] Sep, [address] [id number] Sep, Anxiety F41.9 ; Mixed obsessional thoughts and acts F42.2 and Current mild episode of major depressive disorder without prior episode F32.[address] [id number] August, Cough R05 ; Acute non-recurrent maxillary sinusitis J01.00 and Acute diffuse otitis externa of left ear H60.[address] [id number] Jun, Nausea R11.0 ; CVA tenderness M54.9 ; Acute cystitis without hematuria N30.00 and RUQ pain R10.11 [place] [id number] [place] [address] [id number] Jun, Anxiety F41.[address] [id number] Jun, [place] [id number] [place] [address] [id number] May, [facility] [id number] [place] [address] Apr, [place] [id number] [place] [address] [id number] Apr, Nonintractable episodic headache, unspecified headache type R51 and Dehydration E86.0 [facility] [id number] [place] [address] Apr, Other viral agents as the cause of diseases classified elsewhere B97.89 and Acute upper respiratory infection, unspecified J06.9 [facility] [address] [place] [address] Mar, care, first in third trimester Z34.03 ; - induced hypertension in third trimester O13.3 and 38 weeks gestation of Z3A.38 [place] [id number] [place] [address] Feb, 37 weeks gestation of Z3A.37 and care, first in third trimester Z34.03 [address] [id number] [place] [address] [id number] Feb, 36 weeks gestation of Z3A.36 and care in third trimester Z34.93 [place] [address] [address] Feb, -induced hypertension in third trimester O13.3 ; Gastroesophageal reflux disease, esophagitis presence not specified K21.9 and 35 weeks gestation of Z3A.[address] [address] Feb, -induced hypertension in third trimester O13.3 ; Chronic otitis externa of both ears, unspecified type H60.63 and 34 weeks gestation of Z3A.34 [place] [id number] [place] [address] Jan, Patient is a currently breast-feeding mother Z39.1 [place] [id number] [place] [address] Jan, -induced hypertension in third trimester O13.3 and 32 weeks gestation of Z3A.32 [address] [id number] [place] [address] [id number] Jan, [place] [address] [address] Jan, 30 weeks gestation of Z3A.30 ; -induced hypertension in third trimester O13.3 and Encounter for immunization Z23 [address] [id number] [place] [address] [id number] Jan, -induced hypertension in third trimester O13.3 [facility] [place] [address] [id number], [place] [id number] Jan, [facility] [place] [address] [id number], [place] [id number] Jan, [facility] [place] [address] [id number], [place] [id number] Dec, 28 weeks gestation of Z3A.28 and -induced hypertension in third trimester O13.3 [facility] [place] [address] [id number], [place] [id number] Dec, [facility] [address], [place] [address] Dec, [facility] [place] [id number], [place] [id number] Dec, [facility] [id number], [place] [id number] Dec, care, first in second trimester Z34.02 [facility] [address], [place] [address] Dec, care, first in second trimester Z34.02 [facility] [id number], [place] [id number] Dec, 25 weeks gestation of Z3A.25 [facility] [address] [id number] [place] [address] Nov, [facility] [place] [id number], [place] [id number] Nov, 21 weeks gestation of Z3A.21 and Evaluate anatomy not seen on prior sonogram Z36 [facility] [place] [address] [id number], [place] [id number] Nov, [facility] [place] [id number], [place] [id number] Oct, 17 weeks gestation of Z3A.17 and Second trimester Z34.92 [facility] [place] [address] [id number], [place] [id number] Oct, [facility] [place] [id number] [place] [address] [id number] Sep, [facility] [id number] [place] [address] [id number] Sep, care, first in first trimester Z34.01 ; 13 weeks gestation of Z3A.13 ; Nausea and vomiting during O21.9 ; Other infective acute otitis externa of left ear H60.392 and heartbeat not heard O76 [facility] [id number] [place] [address] [id number] August, Visit for TB skin test Z11.1 and Screening for tuberculosis Z11.1 [facility] [id number] [place] [address] [id number] August, [facility] [id number] [place] [address] [id number] August, [facility] [id number] [place] [address] [id number] August, Normal , first Z34.00 ; 8 weeks gestation of Z3A.08 and Nausea and vomiting in O21.9 [facility] [id number] [place] [address] [id number] Jul, [facility] [place] [address] [id number] Jul, Low back pain at multiple sites M54.5 ; Other specified related conditions, first trimester O26.891 and Constipation by delayed colonic transit K59.01 [facility] [address] [place] [address] [id number] Jul, test-positive Z32.01 [facility] [place] [id number] [place] [address] [id number] Jul, [facility] [id number] [place] [address] [id number] Apr, Anxiety F41.9 and Irritability and anger R45.4 [facility] [place] [address] [place] [address] [id number] Apr, Anxiety F41.9 [facility] [id number] [place] [address] [id number] Mar, [address] [place] [address] [id number] Mar, Acute non-recurrent maxillary sinusitis J01.00 and Bronchitis J40 [address] [id number] Mar, CVA tenderness M54.9 ; Acute diffuse otitis externa of both ears H60.313 ; Non- intractable vomiting with nausea, unspecified vomiting type R11.2 ; Date of last menstrual period (LMP) unknown Z78.9 ; Anxiety F41.9 and Anhedonia R45.84 [place] [id number] [place] [address] [id number] Mar, [facility] [address] [address] Mar, Right upper quadrant abdominal pain R10.[address] [id number] Jan, Bronchitis J40 and Acute suppurative otitis media of left ear without spontaneous rupture of tympanic membrane, recurrence not specified H66.002 [place] [id number] [place] [address] [id number] Sep, Insect bite, initial encounter W57.XXXA and Erythema L53.9 [place] [id number] [place] [address] [id number] May, Ear pain, right H92.[address] [id number] Dec, Otitis externa 380.10 and Sore throat 462 [facility] [address] [place] [address] Nov, Sports physical V70.3 ; Exercise counseling V65.41 and Dietary counseling V65.3 IMMUNIZATIONS No Known Immunizations SOCIAL HISTORY Never Assessed REASON FOR VISIT Right ear pain and sore throat Rosa Elena ARGUETA PLAN OF CARE Activity Details Follow Up sunday if not improving Reason: VITAL SIGNS Height 67 in 2017-10-08 Weight 196.8 lbs 2017-10-08 Temperature 99.6 degrees Fahrenheit 2017-10-08 Heart Rate 100 bpm 2017-10-08 Respiratory Rate 18 2017-10-08 BMI 30.82 kg/m2 2017-10-08 Blood pressure systolic 130 mmHg 2017-10-08 Blood pressure diastolic 70 mmHg 2017-10-08 MEDICATIONS Medication Instructions Dosage Frequency Start Date End Date Duration Status Acetic Acid-HC Drops 2-1 % Otic Three times a day 3 drops into affected ear 8h Sep, 10 day(s) Active Tylenol with Codeine #3 300-30 MG Orally every 6 hrs 1 tablet as needed 6h Sep, Sep, 05 days Active BuPROPion HCl ER (SR) 150 MG Orally Twice a day 1 tablet 12h Sep, 30 day(s) Active Azithromycin 250 MG Orally Once a day 2 tablets on the first day, then 1 tablet daily for 4 days 24h Sep, Sep, 5 day(s) Active RESULTS Name Result Date Reference Range STREP A (IN HOUSE) 2017-10-08 STREP A neg Control + Lot # [id number] Exp date 03/23/19 PROCEDURES Procedure Date Ordered Result Body Site STREP A ASSAY W/OPTIC October 08, 2017 INSTRUCTIONS MEDICATIONS ADMINISTERED No Known Medications MEDICAL (GENERAL) HISTORY Type Description Date Medical History Mononucleosis Medical History Hearing Loss Medical History Rh negative state in antepartum period, first trimester Medical History ENT consult 10/31/17: chronic otitis externa-ciprodex powder placed. Surgical History section Hospitalization History childbirth only
--- OUTSIDE RECORDS SUMMARY | 2018-09-10 11:11 | XMS REPORT ---
Author Author DASHAWN BAUER Organization [facility] Address [address] [place] [address] Care Team Providers Care Pharmacy Student Name Role Phone DASHAWN BAUER Unavailable PROBLEMS Type Condition ICD9-CM Code VXI15-SA Code Onset Dates Condition Status SNOMED Code Problem Mixed obsessional thoughts and acts F42.2 Active 20860604 Problem Current mild episode of major depressive disorder without prior episode F32.0 Active 04900568 Problem Chronic otitis externa of both ears, unspecified type H60.63 Active 11105813 Problem Anxiety F41.9 Active 06316681 Problem Reactive depression F32.9 Active 34711654 Problem Gastroesophageal reflux disease, esophagitis presence not specified K21.9 Active 295604605 ALLERGIES No Information ENCOUNTERS Encounter Location Date Diagnosis [place] [id number] [place] [address] [id number] Nov, Abdominal pain, unspecified abdominal location R10.9 and Anxiety F41.9 [address] [place] [id number] [place] [address] [id number] Oct, [place] [id number] [place] [address] [id number] Oct, test negative Z32.02 [facility] [id number] [place] [address] [id number] Oct, Acute diffuse otitis externa of left ear H60.[address] [id number] Oct, Acute diffuse otitis externa of right ear H60.311 [address] [id number] [place] [address] [id number] Sep, Sore throat J02.9 and Acute diffuse otitis externa of right ear H60.[address] [place] [id number] Sep, [facility] [id number] [place] [address] [id number] Sep, Sore throat J02.9 and Acute diffuse otitis externa of right ear H60.311 [facility] [address] [id number] Sep, [address] [id number] Sep, Anxiety F41.9 ; Mixed obsessional thoughts and acts F42.2 and Current mild episode of major depressive disorder without prior episode F32.[address] [id number] August, Cough R05 ; Acute non-recurrent maxillary sinusitis J01.00 and Acute diffuse otitis externa of left ear H60.[address] [id number] Jun, Nausea R11.0 ; CVA tenderness M54.9 ; Acute cystitis without hematuria N30.00 and RUQ pain R10.11 [facility] [address] [id number] Jun, Anxiety F41.[address] [id number] Jun, [facility] [address] [id number] May, [facility] [id number] [place] [phone] Apr, [facility] [id number] [place] [address] [id number] Apr, Nonintractable episodic headache, unspecified headache type R51 and Dehydration E86.0 [facility] [id number] [place] [id number] Apr, Other viral agents as the cause of diseases classified elsewhere B97.89 and Acute upper respiratory infection, unspecified J06.9 [facility] [address] [place] [address] Mar, care, first in third trimester Z34.03 ; - induced hypertension in third trimester O13.3 and 38 weeks gestation of Z3A.38 [place] [id number] [place] [phone] Feb, 37 weeks gestation of Z3A.37 and care, first in third trimester Z34.03 [place] [id number] [place] [address] [id number] Feb, 36 weeks gestation of Z3A.36 and care in third trimester Z34.93 [place] [address] [address] Feb, -induced hypertension in third trimester O13.3 ; Gastroesophageal reflux disease, esophagitis presence not specified K21.9 and 35 weeks gestation of Z3A.35 [place] [address] [address] Feb, -induced hypertension in third trimester O13.3 ; Chronic otitis externa of both ears, unspecified type H60.63 and 34 weeks gestation of Z3A.34 [place] [id number] [place] [id number] Jan, Patient is a currently breast-feeding mother Z39.1 [place] [id number] [place] [phone] Jan, -induced hypertension in third trimester O13.3 and 32 weeks gestation of Z3A.32 [address] [place] [id number] [place] [address] [id number] Jan, [place] [address] [address] Jan, 30 weeks gestation of Z3A.30 ; -induced hypertension in third trimester O13.3 and Encounter for immunization Z23 [place] [id number] [place] [address] [id number] Jan, -induced hypertension in third trimester O13.3 [facility] [place] [address] [id number] [place] [id number] Jan, [facility] [place] [address] [id number] [place] [id number] Jan, [facility] [place] [address] [id number] [place] [id number] Dec, 28 weeks gestation of Z3A.28 and -induced hypertension in third trimester O13.3 [facility] [place] [address] [id number] [place] [id number] Dec, [facility] [address] [address] Dec, [facility] [place] [id number] [place] [id number] Dec, [facility] [place] [id number] [place] [id number] Dec, care, first in second trimester Z34.02 [facility] [address], [place] [address] Dec, care, first in second trimester Z34.02 [facility] [id number] [place] [id number] Dec, 25 weeks gestation of Z3A.25 [facility] [address] [id number] [place] [address] Nov, [facility] [place] [id number] [place] [id number] Nov, 21 weeks gestation of Z3A.21 and Evaluate anatomy not seen on prior sonogram Z36 [facility] [place] [address] [id number] [place] [id number] Nov, [facility] [place] [id number] [place] [id number] Oct, 17 weeks gestation of Z3A.17 and Second trimester Z34.92 [facility] [place] [address] [id number] [place] [id number] Oct, [facility] [place] [id number] [place] [address] [id number] Sep, [facility] [id number] [place] [address] [id number] Sep, care, first in first trimester Z34.01 ; 13 weeks gestation of Z3A.13 ; Nausea and vomiting during O21.9 ; Other infective acute otitis externa of left ear H60.392 and heartbeat not heard O76 [facility] [id number] [place] [address] [id number] August, Visit for TB skin test Z11.1 and Screening for tuberculosis Z11.1 [facility] [id number] [place] [address] [id number] August, [facility] [id number] [place] [address] [id number] August, [facility] [id number] [place] [address] [id number] August, Normal , first Z34.00 ; 8 weeks gestation of Z3A.08 and Nausea and vomiting in O21.9 [facility] [place] [id number] [place] [address] [id number] Jul, [facility] [place] [address] [id number] Jul, Low back pain at multiple sites M54.5 ; Other specified related conditions, first trimester O26.891 and Constipation by delayed colonic transit K59.01 [facility] [id number] [place] [address] [id number] Jul, test-positive Z32.01 [facility] [id number] [place] [address] [id number] Jul, [facility] [id number] [place] [address] [id number] Apr, Anxiety F41.9 and Irritability and anger R45.4 [facility] [id number] [place] [address] [id number] Apr, Anxiety F41.9 [facility] [id number] [place] [address] [id number] Mar, [address] [place] [address] [id number] Mar, Acute non-recurrent maxillary sinusitis J01.00 and Bronchitis J40 [place] [id number] [place] [address] [id number] Mar, CVA tenderness M54.9 ; Acute diffuse otitis externa of both ears H60.313 ; Non- intractable vomiting with nausea, unspecified vomiting type R11.2 ; Date of last menstrual period (LMP) unknown Z78.9 ; Anxiety F41.9 and Anhedonia R45.84 [place] [place] [id number] [place] [address] [id number] Mar, [facility] [id number] [place] [phone] Mar, Right upper quadrant abdominal pain R10.[address] [id number] Jan, Bronchitis J40 and Acute suppurative otitis media of left ear without spontaneous rupture of tympanic membrane, recurrence not specified H66.002 [place] [id number] [place] [address] [id number] Sep, Insect bite, initial encounter W57.XXXA and Erythema L53.9 [place] [id number] [place] [address] [id number] May, Ear pain, right H92.[address] [id number] Dec, Otitis externa 380.10 and Sore throat 462 [facility] [address] [place] [address] Nov, Sports physical V70.3 ; Exercise counseling V65.41 and Dietary counseling V65.3 IMMUNIZATIONS No Known Immunizations SOCIAL HISTORY Never Assessed REASON FOR VISIT med refill PLAN OF CARE VITAL SIGNS MEDICATIONS Medication Instructions Dosage Frequency Start Date End Date Duration Status Acetic Acid-HC Drops 2-1 % Otic Three times a day 3 drops into affected ear 8h Sep, 0 days Active RESULTS No Results PROCEDURES No Known procedures INSTRUCTIONS MEDICATIONS ADMINISTERED No Known Medications MEDICAL (GENERAL) HISTORY Type Description Date Medical History Mononucleosis Medical History Hearing Loss Medical History Rh negative state in antepartum period, first trimester Medical History ENT consult 10/31/17: chronic otitis externa-ciprodex powder placed. Surgical History section Hospitalization History childbirth only
--- OUTSIDE RECORDS SUMMARY | 2018-09-10 11:11 | XMS REPORT ---
Author Author DASHAWN BAUER Organization [facility] Address [address] [place] [address] Care Team Providers Care Circular Knitter Helper Name Role Phone DASHAWN BAUER Unavailable PROBLEMS Type Condition ICD9-CM Code [id number] Code Onset Dates Condition Status SNOMED Code Problem Mixed obsessional thoughts and acts F42.2 Active 60393714 Problem Current mild episode of major depressive disorder without prior episode F32.0 Active 25118734 Problem Chronic otitis externa of both ears, unspecified type H60.63 Active 76021472 Problem Anxiety F41.9 Active 67951386 Problem Reactive depression F32.9 Active 84120852 Problem Gastroesophageal reflux disease, esophagitis presence not specified K21.9 Active 165821638 ALLERGIES No Known Allergies ENCOUNTERS Encounter Location Date Diagnosis [address] [id number] [place] [address] [id number] Nov, Abdominal pain, unspecified abdominal location R10.9 and Anxiety F41.9 [address] [id number] [place] [address] [id number] Oct, [address] [id number] [place] [address] [id number] Oct, test negative Z32.02 [facility] [id number] [place] [address] [id number] Oct, Acute diffuse otitis externa of left ear H60.[address] [id number] Oct, Acute diffuse otitis externa of right ear H60.311 [address] [id number] [place] [address] [id number] Sep, Sore throat J02.9 and Acute diffuse otitis externa of right ear H60.311 [place] [address] [place] [id number] Sep, [address] [id number] [place] [address] [id number] Sep, Sore throat J02.9 and Acute diffuse otitis externa of right ear H60.[address] [id number] Sep, [address] [id number] Sep, Anxiety F41.9 ; Mixed obsessional thoughts and acts F42.2 and Current mild episode of major depressive disorder without prior episode F32.[address] [id number] August, Cough R05 ; Acute non-recurrent maxillary sinusitis J01.00 and Acute diffuse otitis externa of left ear H60.[address] [id number] Jun, Nausea R11.0 ; CVA tenderness M54.9 ; Acute cystitis without hematuria N30.00 and RUQ pain R10.11 [address] [id number] [place] [address] [id number] Jun, Anxiety F41.[address] [id number] Jun, [address] [id number] [place] [address] [id number] May, [facility] [id number] [place] [phone] Apr, [address] [id number] [place] [address] [id number] Apr, Nonintractable episodic headache, unspecified headache type R51 and Dehydration E86.0 [facility] [id number] [place] [phone] Apr, Other viral agents as the cause of diseases classified elsewhere B97.89 and Acute upper respiratory infection, unspecified J06.9 [facility] [address] [place] [address] Mar, care, first in third trimester Z34.03 ; - induced hypertension in third trimester O13.3 and 38 weeks gestation of Z3A.38 [place] [id number] [place] [address] Feb, 37 weeks gestation of Z3A.37 and care, first in third trimester Z34.03 [address] [id number] [place] [address] [id number] Feb, 36 weeks gestation of Z3A.36 and care in third trimester Z34.93 [place] [address] [address] Feb, -induced hypertension in third trimester O13.3 ; Gastroesophageal reflux disease, esophagitis presence not specified K21.9 and 35 weeks gestation of Z3A.[address] [address] Feb, -induced hypertension in third trimester O13.3 ; Chronic otitis externa of both ears, unspecified type H60.63 and 34 weeks gestation of Z3A.34 [place] [id number] [place] [address] Jan, Patient is a currently breast-feeding mother Z39.1 [place] [id number] [place] [phone] Jan, -induced hypertension in third trimester O13.3 and 32 weeks gestation of Z3A.32 [address] [id number] [place] [address] [id number] Jan, [place] [address] [address] Jan, 30 weeks gestation of Z3A.30 ; -induced hypertension in third trimester O13.3 and Encounter for immunization Z23 [address] [id number] [place] [address] [id number] Jan, -induced hypertension in third trimester O13.3 [facility] [place] [address] [id number][place] [id number] Jan, [facility] [place] [address] [id number][place] [id number] Jan, [facility] [place] [address] [id number], [place] [id number] Dec, 28 weeks gestation of Z3A.28 and -induced hypertension in third trimester O13.3 [facility] [place] [address] [id number][place] [id number] Dec, [facility] [address], [place] [address] Dec, [facility] [place] [id number], [place] [id number] Dec, [facility] [id number], [place] [id number] Dec, care, first in second trimester Z34.02 [facility] [address], [place] [address] Dec, care, first in second trimester Z34.02 [facility] [id number][place] [id number] Dec, 25 weeks gestation of Z3A.25 [facility] [address] [id number] [place] [address] Nov, [facility] [place] [id number][place] [id number] Nov, 21 weeks gestation of Z3A.21 and Evaluate anatomy not seen on prior sonogram Z36 [facility] [place] [address] [id number], [place] [id number] Nov, [facility] [place] [id number], [place] [id number] Oct, 17 weeks gestation of Z3A.17 and Second trimester Z34.92 [facility] [place] [address] [id number], [place] [id number] Oct, [facility] [place] [id number] [place] [address] [id number] Sep, [facility] [id number] [place] [address] [id number] Sep, care, first in first trimester Z34.01 ; 13 weeks gestation of Z3A.13 ; Nausea and vomiting during O21.9 ; Other infective acute otitis externa of left ear H60.392 and heartbeat not heard O76 [facility] [id number] [place] [address] [id number] August, Visit for TB skin test Z11.1 and Screening for tuberculosis Z11.1 [facility] [id number] [place] [address] [id number] August, [facility] [id number] [place] [address] [id number] August, [facility] [id number] [place] [address] [id number] August, Normal , first Z34.00 ; 8 weeks gestation of Z3A.08 and Nausea and vomiting in O21.9 [facility] [id number] [place] [address] [id number] Jul, [facility] [place] [address] [id number] Jul, Low back pain at multiple sites M54.5 ; Other specified related conditions, first trimester O26.891 and Constipation by delayed colonic transit K59.01 [facility] [id number] [place] [address] [id number] Jul, test-positive Z32.01 [facility] [place] [id number] [place] [address] [id number] Jul, [facility] [id number] [place] [address] [id number] Apr, Anxiety F41.9 and Irritability and anger R45.4 [facility] [place] [id number] [place] [address] [id number] Apr, Anxiety F41.9 [facility] [id number] [place] [address] [id number] Mar, [address] [place] [address] [id number] Mar, Acute non-recurrent maxillary sinusitis J01.00 and Bronchitis J40 [address] [id number] Mar, CVA tenderness M54.9 ; Acute diffuse otitis externa of both ears H60.313 ; Non- intractable vomiting with nausea, unspecified vomiting type R11.2 ; Date of last menstrual period (LMP) unknown Z78.9 ; Anxiety F41.9 and Anhedonia R45.84 [address] [id number] [place] [address] [id number] Mar, [facility] [address] [address] Mar, Right upper quadrant abdominal pain R10.[address] [id number] Jan, Bronchitis J40 and Acute suppurative otitis media of left ear without spontaneous rupture of tympanic membrane, recurrence not specified H66.002 [address] [id number] [place] [address] [id number] Sep, Insect bite, initial encounter W57.XXXA and Erythema L53.9 [place] [id number] [place] [address] [id number] May, Ear pain, right H92.[address] [id number] Dec, Otitis externa 380.10 and Sore throat 462 [facility] [address] [place] [address] Nov, Sports physical V70.3 ; Exercise counseling V65.41 and Dietary counseling V65.3 IMMUNIZATIONS No Known Immunizations SOCIAL HISTORY Never Assessed REASON FOR VISIT Right ear pain f/u Rosa Elena ARGUETA PLAN OF CARE Activity Details Follow Up prn if not improving and pending referral Reason:ear pain VITAL SIGNS Height 67 in 2017-10-12 Weight 194.6 lbs 2017-10-12 Temperature 98.3 degrees Fahrenheit 2017-10-12 Heart Rate 70 bpm 2017-10-12 Respiratory Rate 16 2017-10-12 BMI 30.48 kg/m2 2017-10-12 Blood pressure systolic 118 mmHg 2017-10-12 Blood pressure diastolic 68 mmHg 2017-10-12 MEDICATIONS Medication Instructions Dosage Frequency Start Date End Date Duration Status Tylenol with Codeine #3 300-30 MG Orally every 6 hrs 1 tablet as needed 6h Sep, Sep, 05 days Active Acetic Acid-HC Drops 2-1 % Otic Three times a day 3 drops into affected ear 8h Sep, Active BuPROPion HCl ER (SR) 150 MG Orally Twice a day 1 tablet 12h Sep, 30 day(s) Active RESULTS No Results PROCEDURES No Known procedures INSTRUCTIONS MEDICATIONS ADMINISTERED No Known Medications MEDICAL (GENERAL) HISTORY Type Description Date Medical History Mononucleosis Medical History Hearing Loss Medical History Rh negative state in antepartum period, first trimester Medical History ENT consult 10/31/17: chronic otitis externa-ciprodex powder placed. Surgical History section Hospitalization History childbirth only
--- OUTSIDE RECORDS SUMMARY | 2018-09-10 11:12 | XMS REPORT ---
Author Author DASHAWN BAUER Organization [facility] Address [address] [place] [address] Care Team Providers Care Youth Pastor Name Role Phone DASHAWN BAUER Unavailable PROBLEMS Type Condition ICD9-CM Code [id number] Code Onset Dates Condition Status SNOMED Code Problem Mixed obsessional thoughts and acts F42.2 Active 41977206 Problem Current mild episode of major depressive disorder without prior episode F32.0 Active 68612115 Problem Chronic otitis externa of both ears, unspecified type H60.63 Active 53140587 Problem Anxiety F41.9 Active 78773234 Problem Reactive depression F32.9 Active 85128238 Problem Gastroesophageal reflux disease, esophagitis presence not specified K21.9 Active 305731496 ALLERGIES No Information ENCOUNTERS Encounter Location Date Diagnosis [place] [id number] [place] [address] [id number] Nov, Abdominal pain, unspecified abdominal location R10.9 and Anxiety F41.9 [address] [id number] [place] [address] [id number] Oct, [place] [id number] [place] [address] [id number] Oct, test negative Z32.02 [facility] [id number] [place] [address] [id number] Oct, Acute diffuse otitis externa of left ear H60.312 [place] [id number] [place] [address] [id number] Oct, Acute diffuse otitis externa of right ear H60.311 [address] [id number] [place] [address] [id number] Sep, Sore throat J02.9 and Acute diffuse otitis externa of right ear H60.311 [address] [id number] [place] [address] [id number] Sep, [facility] [id number] [place] [address] [id number] Sep, Sore throat J02.9 and Acute diffuse otitis externa of right ear H60.311 [facility] [address] [id number] Sep, [address] [id number] Sep, Anxiety F41.9 ; Mixed obsessional thoughts and acts F42.2 and Current mild episode of major depressive disorder without prior episode F32.[address] [id number] August, Cough R05 ; Acute non-recurrent maxillary sinusitis J01.00 and Acute diffuse otitis externa of left ear H60.[address] [id number] Jun, Nausea R11.0 ; CVA tenderness M54.9 ; Acute cystitis without hematuria N30.00 and RUQ pain R10.11 [facility] [address] [id number] Jun, Anxiety F41.[address] [id number] Jun, [facility] [address] [id number] May, [facility] [id number] [place] [address] Apr, [facility] [id number] [place] [address] [id number] Apr, Nonintractable episodic headache, unspecified headache type R51 and Dehydration E86.0 [facility] [id number] [place] [address] Apr, Other viral agents as the cause of diseases classified elsewhere B97.89 and Acute upper respiratory infection, unspecified J06.9 [facility] [address] [place] [address] Mar, care, first in third trimester Z34.03 ; - induced hypertension in third trimester O13.3 and 38 weeks gestation of Z3A.38 [place] [id number] [place] [address] Feb, 37 weeks gestation of Z3A.37 and care, first in third trimester Z34.03 [place] [id number] [place] [address] [id number] Feb, 36 weeks gestation of Z3A.36 and care in third trimester Z34.93 [place] [address] [address] Feb, -induced hypertension in third trimester O13.3 ; Gastroesophageal reflux disease, esophagitis presence not specified K21.9 and 35 weeks gestation of Z3A.35 [place] [address] [address] Feb, -induced hypertension in third trimester O13.3 ; Chronic otitis externa of both ears, unspecified type H60.63 and 34 weeks gestation of Z3A.34 [place] [id number] [place] [address] Jan, Patient is a currently breast-feeding mother Z39.1 [place] [id number] [place] [address] Jan, -induced hypertension in third trimester O13.3 and 32 weeks gestation of Z3A.32 [address] [id number] [place] [address] [id number] Jan, [place] [address] [address] Jan, 30 weeks gestation of Z3A.30 ; -induced hypertension in third trimester O13.3 and Encounter for immunization Z23 [place] [id number] [place] [address] [id number] Jan, -induced hypertension in third trimester O13.3 [facility] [place] [address] [id number] [id number] Jan, [facility] [place] [address] [id number][place] [id number] Jan, [facility] [place] [address] [id number][place] [id number] Dec, 28 weeks gestation of Z3A.28 and -induced hypertension in third trimester O13.3 [facility] [place] [address] [id number][place] [id number] Dec, [facility] [address], [place] [address] Dec, [facility] [place] [id number][place] [id number] Dec, [facility] [place] [id number][place] [id number] Dec, care, first in second trimester Z34.02 [facility] [address], [place] [address] Dec, care, first in second trimester Z34.02 [facility] [place] [id number][place] [id number] Dec, 25 weeks gestation [facility] Z3A.25 [facility] [address] [id number] [place] [address] Nov, [facility] [place] [id number][place] [id number] Nov, 21 weeks gestation of Z3A.21 and Evaluate anatomy not seen on prior sonogram Z36 [facility] [place] [address] [id number][place] [id number] Nov, [facility] [place] [id number], [place] [id number] Oct, 17 weeks gestation of Z3A.17 and Second trimester Z34.92 [facility] [place] [address] [id number][place] [id number] Oct, [facility] [place] [id number] [place] [address] [id number] Sep, [facility] [place] [id number] [place] [address] [id number] Sep, care, first in first trimester Z34.01 ; 13 weeks gestation of Z3A.13 ; Nausea and vomiting during O21.9 ; Other infective acute otitis externa of left ear H60.392 and heartbeat not heard O76 [facility] [place] [id number] [place] [address] [id number] August, Visit for TB skin test Z11.1 and Screening for tuberculosis Z11.1 [facility] [place] [id number] [place] [address] [id number] August, [facility] [place] [id number] [place] [address] [id number] August, [facility] [id number] [place] [address] [id number] August, Normal , first Z34.00 ; 8 weeks gestation of Z3A.08 and Nausea and vomiting in O21.9 [facility] [place] [id number] [place] [address] [id number] Jul, [facility] [place] [address] [id number] Jul, Low back pain at multiple sites M54.5 ; Other specified related conditions, first trimester O26.891 and Constipation by delayed colonic transit K59.01 [facility] [place] [id number] [place] [address] [id number] Jul, test-positive Z32.01 [facility] [place] [id number] [place] [address] [id number] Jul, [facility] [place] [id number] [place] [address] [id number] Apr, Anxiety F41.9 and Irritability and anger R45.4 [facility] [place] [id number] [place] [address] [id number] Apr, Anxiety F41.9 [facility] [place] [id number] [place] [address] [id number] Mar, [address] [place] [address] [id number] Mar, Acute non-recurrent maxillary sinusitis J01.00 and Bronchitis J40 [place] [id number] [place] [address] [id number] Mar, CVA tenderness M54.9 ; Acute diffuse otitis externa of both ears H60.313 ; Non- intractable vomiting with nausea, unspecified vomiting type R11.2 ; Date of last menstrual period (LMP) unknown Z78.9 ; Anxiety F41.9 and Anhedonia R45.84 [place] [id number] [place] [address] [id number] Mar, [facility] [address] [address] Mar, Right upper quadrant abdominal pain R10.[address] [id number] Jan, Bronchitis J40 and Acute suppurative otitis media of left ear without spontaneous rupture of tympanic membrane, recurrence not specified H66.002 [place] [id number] [place] [address] [id number] Sep, Insect bite, initial encounter W57.XXXA and Erythema L53.9 [place] [id number] [place] [address] [id number] May, Ear pain, right H92.[address] [id number] Dec, Otitis externa 380.10 and Sore throat 462 [facility] [address] [place] [address] Nov, Sports physical V70.3 ; Exercise counseling V65.41 and Dietary counseling V65.3 IMMUNIZATIONS No Known Immunizations SOCIAL HISTORY Never Assessed REASON FOR VISIT PLAN OF CARE VITAL SIGNS MEDICATIONS Unknown [...]
--- OUTSIDE RECORDS SUMMARY | 2018-09-10 11:12 | XMS REPORT ---
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 Name Role Phone DASHAWN BAUER Unavailable PROBLEMS Type Condition ICD9-CM Code [id number] Code Onset Dates Condition Status SNOMED Code Problem Mixed obsessional thoughts and acts F42.2 Active 79828333 Problem Current mild episode of major depressive disorder without prior episode F32.0 Active 83721084 Problem Chronic otitis externa of both ears, unspecified type H60.63 Active 26051688 Problem Anxiety F41.9 Active 46732058 Problem Reactive depression F32.9 Active 38287618 Problem Gastroesophageal reflux disease, esophagitis presence not specified K21.9 Active 904674432 ALLERGIES No Known Allergies ENCOUNTERS Encounter Location Date Diagnosis [place] [id number] [place] [address] [id number] Nov, Abdominal pain, unspecified abdominal location R10.9 and Anxiety F41.9 [address] [place] [id number] [place] [address] [id number] Oct, [place] [id number] [place] [address] [id number] Oct, test negative Z32.02 [facility] [id number] [place] [address] [id number] Oct, Acute diffuse otitis externa of left ear H60.[address] [id number] Oct, Acute diffuse otitis externa of right ear H60.311 [place] [id number] [place] [address] [id number] Sep, Sore throat J02.9 and Acute diffuse otitis externa of right ear H60.311 [place] [address] [place] [id number] Sep, [place] [id number] [place] [address] [id number] Sep, Sore throat J02.9 and Acute diffuse otitis externa of right ear H60.[address] [id number] Sep, [address] [id number] Sep, Anxiety F41.9 ; Mixed obsessional thoughts and acts F42.2 and Current mild episode of major depressive disorder without prior episode F32.[address] [id number] August, Cough R05 ; Acute non-recurrent maxillary sinusitis J01.00 and Acute diffuse otitis externa of left ear H60.[address] [id number] Jun, Nausea R11.0 ; CVA tenderness M54.9 ; Acute cystitis without hematuria N30.00 and RUQ pain R10.11 [place] [id number] [place] [address] [id number] Jun, Anxiety F41.[address] [id number] Jun, [place] [id number] [place] [address] [id number] May, [facility] [id number] [place] [address] Apr, [place] [id number] [place] [address] [id number] Apr, Nonintractable episodic headache, unspecified headache type R51 and Dehydration E86.0 [facility] [id number] [place] [address] Apr, Other viral agents as the cause of diseases classified elsewhere B97.89 and Acute upper respiratory infection, unspecified J06.9 [facility] [address] [place] [address] Mar, care, first in third trimester Z34.03 ; - induced hypertension in third trimester O13.3 and 38 weeks gestation of Z3A.38 [place] [id number] [place] [address] Feb, 37 weeks gestation of Z3A.37 and care, first in third trimester Z34.03 [place] [id number] [place] [address] [id number] Feb, 36 weeks gestation of Z3A.36 and care in third trimester Z34.93 [place] [address] [address] Feb, -induced hypertension in third trimester O13.3 ; Gastroesophageal reflux disease, esophagitis presence not specified K21.9 and 35 weeks gestation of Z3A.[address] [address] Feb, -induced hypertension in third trimester O13.3 ; Chronic otitis externa of both ears, unspecified type H60.63 and 34 weeks gestation of Z3A.34 [place] [id number] [place] [address] Jan, Patient is a currently breast-feeding mother Z39.1 [place] [id number] [place] [address] Jan, -induced hypertension in third trimester O13.3 and 32 weeks gestation of Z3A.32 [address] [place] [id number] [place] [address] [id number] Jan, [place] [address] [address] Jan, 30 weeks gestation of Z3A.30 ; -induced hypertension in third trimester O13.3 and Encounter for immunization Z23 [place] [id number] [place] [address] [id number] Jan, -induced hypertension in third trimester O13.3 [facility] [place] [address] [id number] [id number] Jan, [facility] [place] [address] [id number][place] [id number] Jan, [facility] [place] [address] [id number][place] [id number] Dec, 28 weeks gestation of Z3A.28 and -induced hypertension in third trimester O13.3 [facility] [place] [address] [id number], [place] [id number] Dec, [facility] [address], [place] [address] Dec, [facility] [place] [id number], [place] [id number] Dec, [facility] [place] [id number], [place] [id number] Dec, care, first in second trimester Z34.02 [facility] [address], [place] [address] Dec, care, first in second trimester Z34.02 [facility] [place] [id number], [place] [id number] Dec, 25 weeks gestation of Z3A.25 [facility] [address] [id number] [place] [address] Nov, [facility] [place] [id number], [place] [id number] Nov, 21 weeks gestation of Z3A.21 and Evaluate anatomy not seen on prior sonogram Z36 [facility] [place] [address] [id number], [place] [id number] Nov, [facility] [place] [id number], [place] [id number] Oct, 17 weeks gestation of Z3A.17 and Second trimester Z34.92 [facility] [place] [address] [id number], [place] [id number] Oct, [facility] [place] [id number] [place] [address] [id number] Sep, [facility] [place] [id number] [place] [address] [id number] Sep, care, first in first trimester Z34.01 ; 13 weeks gestation of Z3A.13 ; Nausea and vomiting during O21.9 ; Other infective acute otitis externa of left ear H60.392 and heartbeat not heard O76 [facility] [place] [id number] [place] [address] [id number] August, Visit for TB skin test Z11.1 and Screening for tuberculosis Z11.1 [facility] [place] [id number] [place] [address] [id number] August, [facility] [place] [id number] [place] [address] [id number] August, [facility] [place] [id number] [place] [address] [id number] August, Normal , first Z34.00 ; 8 weeks gestation of Z3A.08 and Nausea and vomiting in O21.9 [facility] [place] [id number] [place] [address] [id number] Jul, [facility] [place] [address] [id number] Jul, Low back pain at multiple sites M54.5 ; Other specified related conditions, first trimester O26.891 and Constipation by delayed colonic transit K59.01 [facility] [place] [id number] [place] [address] [id number] Jul, test-positive Z32.01 [facility] [place] [id number] [place] [address] [id number] Jul, [facility] [place] [id number] [place] [address] [id number] Apr, Anxiety F41.9 and Irritability and anger R45.4 [facility] [place] [id number] [place] [address] [id number] Apr, Anxiety F41.9 [facility] [place] [id number] [place] [address] [id number] Mar, [address] [place] [address] [id number] Mar, Acute non-recurrent maxillary sinusitis J01.00 and Bronchitis J40 [address] [id number] Mar, CVA tenderness M54.9 ; Acute diffuse otitis externa of both ears H60.313 ; Non- intractable vomiting with nausea, unspecified vomiting type R11.2 ; Date of last menstrual period (LMP) unknown Z78.9 ; Anxiety F41.9 and Anhedonia R45.84 [address] [place] [id number] [place] [address] [id number] Mar, [facility] [address] [address] Mar, Right upper quadrant abdominal pain R10.[address] [id number] Jan, Bronchitis J40 and Acute suppurative otitis media of left ear without spontaneous rupture of tympanic membrane, recurrence not specified H66.002 [place] [id number] [place] [address] [id number] Sep, Insect bite, initial encounter W57.XXXA and Erythema L53.9 [place] [id number] [place] [address] [id number] May, Ear pain, right H92.[address] [id number] Dec, Otitis externa 380.10 and Sore throat 462 [facility] [address] [place] [address] Nov, Sports physical V70.3 ; Exercise counseling V65.41 and Dietary counseling V65.3 IMMUNIZATIONS No Known Immunizations SOCIAL HISTORY Never Assessed REASON FOR VISIT Anxiety/Depression follow up [place] PLAN OF CARE Activity Details Follow Up 4 Weeks Reason:CHM Anxiety/depression VITAL SIGNS Height 67 in 2017-10-03 Weight 197.6 lbs 2017-10-03 Temperature 97.9 degrees Fahrenheit 2017-10-03 Heart Rate 70 bpm 2017-10-03 Respiratory Rate 18 2017-10-03 BMI 30.95 kg/m2 2017-10-03 Blood pressure systolic 130 mmHg 2017-10-03 Blood pressure diastolic 68 mmHg 2017-10-03 MEDICATIONS Medication Instructions Dosage Frequency Start Date End Date Duration Status BuPROPion HCl ER (SR) 150 MG Orally Twice a day 1 tablet 12h 20 Sep, 2017 30 day(s) Active ProAir HFA 108 (90 Base) MCG/ACT Inhalation every 6 hrs 2 puffs as needed 6h August, 30 days Active RESULTS No Results PROCEDURES No Known procedures INSTRUCTIONS MEDICATIONS ADMINISTERED No Known Medications MEDICAL (GENERAL) HISTORY Type Description Date Medical History Mononucleosis Medical History Hearing Loss Medical History Rh negative state in antepartum period, first trimester Medical History ENT consult 10/31/17: chronic otitis externa-ciprodex powder placed. Surgical History section Hospitalization History childbirth only
--- OUTSIDE RECORDS SUMMARY | 2018-09-10 11:12 | XMS REPORT ---
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 Name Role Phone DASHAWN BAUER Unavailable PROBLEMS Type Condition ICD9-CM Code FGW13-TQ Code Onset Dates Condition Status SNOMED Code Problem Mixed obsessional thoughts and acts F42.2 Active 07337838 Problem Current mild episode of major depressive disorder without prior episode F32.0 Active 02418729 Problem Chronic otitis externa of both ears, unspecified type H60.63 Active 69965409 Problem Anxiety F41.9 Active 62076221 Problem Reactive depression F32.9 Active 22106390 Problem Gastroesophageal reflux disease, esophagitis presence not specified K21.9 Active 442206996 ALLERGIES No Information ENCOUNTERS Encounter Location Date Diagnosis [place] [id number] [address] [id number] Nov, Abdominal pain, unspecified abdominal location R10.9 and Anxiety F41.9 [place] [id number] [place] [address] [id number] Oct, [place] [id number] [place] [address] [id number] Oct, test negative Z32.02 [facility] [id number] [place] [address] [id number] Oct, Acute diffuse otitis externa of left ear H60.312 [place] [id number] [place] [address] [id number] Oct, Acute diffuse otitis externa of right ear H60.311 [place] [id number] [place] [address] [id number] Sep, Sore throat J02.9 and Acute diffuse otitis externa of right ear H60.[address] [place] [id number] Sep, [facility] [id number] [place] [address] [id number] Sep, Sore throat J02.9 and Acute diffuse otitis externa of right ear H60.311 [facility] [address] [id number] Sep, [address] [id number] Sep, Anxiety F41.9 ; Mixed obsessional thoughts and acts F42.2 and Current mild episode of major depressive disorder without prior episode F32.[address] [id number] August, Cough R05 ; Acute non-recurrent maxillary sinusitis J01.00 and Acute diffuse otitis externa of left ear H60.[address] [id number] Jun, Nausea R11.0 ; CVA tenderness M54.9 ; Acute cystitis without hematuria N30.00 and RUQ pain R10.11 [facility] [address] [id number] Jun, Anxiety F41.[address] [id number] Jun, [facility] [address] [id number] May, [facility] [id number] [place] [phone] Apr, [facility] [id number] [address] [id number] Apr, Nonintractable episodic headache, unspecified headache type R51 and Dehydration E86.0 [facility] [id number] [place] [address] Apr, Other viral agents as the cause of diseases classified elsewhere B97.89 and Acute upper respiratory infection, unspecified J06.9 [facility] [address] [place] [address] Mar, care, first in third trimester Z34.03 ; - induced hypertension in third trimester O13.3 and 38 weeks gestation of Z3A.38 [place] [id number] [place] [address] Feb, 37 weeks gestation of Z3A.37 and care, first in third trimester Z34.03 [place] [id number] [place] [address] [id number] Feb, 36 weeks gestation of Z3A.36 and care in third trimester Z34.93 [place] [address] [address] Feb, -induced hypertension in third trimester O13.3 ; Gastroesophageal reflux disease, esophagitis presence not specified K21.9 and 35 weeks gestation of Z3A.35 [place] [address] [address] Feb, -induced hypertension in third trimester O13.3 ; Chronic otitis externa of both ears, unspecified type H60.63 and 34 weeks gestation of Z3A.34 [place] [id number] [place] [address] Jan, Patient is a currently breast-feeding mother Z39.1 [place] [id number] [place] [phone] Jan, -induced hypertension in third trimester O13.3 and 32 weeks gestation of Z3A.32 [place] [id number] [place] [address] [id number] Jan, [place] [address] [address] Jan, 30 weeks gestation of Z3A.30 ; -induced hypertension in third trimester O13.3 and Encounter for immunization Z23 [place] [id number] [place] [address] [id number] Jan, -induced hypertension in third trimester O13.3 [facility] [place] [address] [id number][place] [id number] Jan, [facility] [place] [address] [id number][place] [phone] Jan, [facility] [place] [address] [id number][place] [id number] Dec, 28 weeks gestation of Z3A.28 and -induced hypertension in third trimester O13.3 [facility] [place] [address] [id number][place] [phone] Dec, [facility] [address] [address] Dec, [facility] [place] [id number][place] [id number] Dec, [facility] [place] [id number][place] [phone] Dec, care, first in second trimester Z34.02 [facility] [address] [address] Dec, care, first in second trimester Z34.02 [facility] [place] [id number][place] [id number] Dec, 25 weeks gestation of Z3A.25 [facility] [address] [id number] [place] [address] Nov, [facility] [place] [id number], [place] [phone] Nov, 21 weeks gestation of Z3A.21 and Evaluate anatomy not seen on prior sonogram Z36 [facility] [place] [address] [id number][place] [id number] Nov, [facility] [place] [id number], [place] [id number] Oct, 17 weeks gestation of Z3A.17 and Second trimester Z34.92 [facility] [place] [address] [id number], [place] [phone] Oct, [facility] [place] [id number] [place] [address] [id number] Sep, [facility] [id number] [place] [address] [id number] Sep, care, first in first trimester Z34.01 ; 13 weeks gestation of Z3A.13 ; Nausea and vomiting during O21.9 ; Other infective acute otitis externa of left ear H60.392 and heartbeat not heard O76 [facility] [id number] [place] [address] [id number] August, Visit for TB skin test Z11.1 and Screening for tuberculosis Z11.1 [facility] [id number] [place] [address] [id number] August, [facility] [id number] [place] [address] [id number] August, [facility] [id number] [place] [address] [id number] August, Normal , first Z34.00 ; 8 weeks gestation of Z3A.08 and Nausea and vomiting in O21.9 [facility] [place] [id number] [place] [address] [id number] Jul, [facility] [place] [address] [id number] Jul, Low back pain at multiple sites M54.5 ; Other specified related conditions, first trimester O26.891 and Constipation by delayed colonic transit K59.01 [facility] [id number] [place] [address] [id number] Jul, test-positive Z32.01 [facility] [id number] [place] [address] [id number] Jul, [facility] [id number] [place] [address] [id number] Apr, Anxiety F41.9 and Irritability and anger R45.4 [facility] [id number] [place] [address] [id number] Apr, Anxiety F41.9 [facility] [place] [id number] [place] [address] [id number] Mar, [address] [place] [address] [id number] Mar, Acute non-recurrent maxillary sinusitis J01.00 and Bronchitis J40 [place] [id number] [place] [address] [id number] Mar, CVA tenderness M54.9 ; Acute diffuse otitis externa of both ears H60.313 ; Non- intractable vomiting with nausea, unspecified vomiting type R11.2 ; Date of last menstrual period (LMP) unknown Z78.9 ; Anxiety F41.9 and Anhedonia R45.84 [place] [id number] [place] [address] [id number] Mar, [facility] [address] [address] Mar, Right upper quadrant abdominal pain R10.[address] [id number] Jan, Bronchitis J40 and Acute suppurative otitis media of left ear without spontaneous rupture of tympanic membrane, recurrence not specified H66.002 [place] [id number] [place] [address] [id number] Sep, Insect bite, initial encounter W57.XXXA and Erythema L53.9 [place] [id number] [place] [address] [id number] May, Ear pain, right H92.[address] [id number] Dec, Otitis externa 380.10 and Sore throat 462 [facility] [address] [place] [address] Nov, Sports physical V70.3 ; Exercise counseling [...]
--- OUTSIDE RECORDS SUMMARY | 2018-09-10 11:13 | XMS REPORT ---
Author Author DASHAWN BAUER Organization [facility] Address [address] [place] [address] Care Team Providers Care Fluorescent Lighting Model Maker Name Role Phone DASHAWN BAUER Unavailable PROBLEMS Type Condition ICD9-CM Code SBX37-BN Code Onset Dates Condition Status SNOMED Code Problem Mixed obsessional thoughts and acts F42.2 Active 77075662 Problem Current mild episode of major depressive disorder without prior episode F32.0 Active 37636294 Problem Chronic otitis externa of both ears, unspecified type H60.63 Active 45551181 Problem Anxiety F41.9 Active 68132126 Problem Reactive depression F32.9 Active 92643946 Problem Gastroesophageal reflux disease, esophagitis presence not specified K21.9 Active 796146615 ALLERGIES No Known Allergies ENCOUNTERS Encounter Location Date Diagnosis [place] [id number] [place] [address] [id number] Nov, Abdominal pain, unspecified abdominal location R10.9 and Anxiety F41.9 [place] [id number] [place] [address] [id number] Oct, [place] [id number] [place] [address] [id number] Oct, test negative Z32.02 [facility] [id number] [place] [address] [id number] Oct, Acute diffuse otitis externa of left ear H60.[address] [id number] Oct, Acute diffuse otitis externa of right ear H60.311 [place] [id number] [place] [address] [id number] Sep, Sore throat J02.9 and Acute diffuse otitis externa of right ear H60.311 [place] [address] [place] [id number] Sep, [place] [id number] [place] [address] [id number] Sep, Sore throat J02.9 and Acute diffuse otitis externa of right ear H60.[address] [id number] Sep, [address] [id number] Sep, Anxiety F41.9 ; Mixed obsessional thoughts and acts F42.2 and Current mild episode of major depressive disorder without prior episode F32.[address] [id number] August, Cough R05 ; Acute non-recurrent maxillary sinusitis J01.00 and Acute diffuse otitis externa of left ear H60.[address] [id number] Jun, Nausea R11.0 ; CVA tenderness M54.9 ; Acute cystitis without hematuria N30.00 and RUQ pain R10.11 [place] [id number] [place] [address] [id number] Jun, Anxiety F41.[address] [id number] Jun, [place] [id number] [place] [address] [id number] May, [facility] [id number] [place] [phone] Apr, [place] [id number] [place] [address] [id number] Apr, Nonintractable episodic headache, unspecified headache type R51 and Dehydration E86.0 [facility] [id number] [place] [address] Apr, Other viral agents as the cause of diseases classified elsewhere B97.89 and Acute upper respiratory infection, unspecified J06.9 [facility] [address] [place] [address] Mar, care, first in third trimester Z34.03 ; - induced hypertension in third trimester O13.3 and 38 weeks gestation of Z3A.38 [place] [id number] [place] [address] Feb, 37 weeks gestation of Z3A.37 and care, first in third trimester Z34.03 [place] [id number] [place] [address] [id number] Feb, 36 weeks gestation of Z3A.36 and care in third trimester Z34.93 [place] [address] [address] Feb, -induced hypertension in third trimester O13.3 ; Gastroesophageal reflux disease, esophagitis presence not specified K21.9 and 35 weeks gestation of Z3A.[address] [address] Feb, -induced hypertension in third trimester O13.3 ; Chronic otitis externa of both ears, unspecified type H60.63 and 34 weeks gestation of Z3A.34 [place] [id number] [place] [address] Jan, Patient is a currently breast-feeding mother Z39.1 [place] [id number] [place] [address] Jan, -induced hypertension in third trimester O13.3 and 32 weeks gestation of Z3A.32 [place] [id number] [place] [address] [id number] Jan, [place] [address] [address] Jan, 30 weeks gestation of Z3A.30 ; -induced hypertension in third trimester O13.3 and Encounter for immunization Z23 [place] [id number] [place] [address] [id number] Jan, -induced hypertension in third trimester O13.3 [facility] [place] [address] [id number][place] [id number] Jan, [facility] [place] [address] [id number][place] [phone] Jan, [facility] [place] [address] [id number][place] [id number] Dec, 28 weeks gestation of Z3A.28 and -induced hypertension in third trimester O13.3 [facility] [place] [address] [id number][place] [id number] Dec, [facility] [address], [place] [address] Dec, [facility] [place] [id number], [place] [phone] Dec, [facility] [place] [id number], [place] [phone] Dec, care, first in second trimester Z34.02 [facility] [address], [place] [address] Dec, care, first in second trimester Z34.02 [facility] [place] [id number], [place] [id number] Dec, 25 weeks gestation of Z3A.25 [facility] [address] [id number] [place] [address] Nov, [facility] [place] [id number], [place] [id number] Nov, 21 weeks gestation of Z3A.21 and Evaluate anatomy not seen on prior sonogram Z36 [facility] [place] [address] [id number], [place] [id number] Nov, [facility] [place] [id number], [place] [id number] Oct, 17 weeks gestation of Z3A.17 and Second trimester Z34.92 [facility] [place] [address] [id number], [place] [id number] Oct, [facility] [place] [id number] [place] [address] [id number] Sep, [facility] [place] [id number] [place] [address] [id number] Sep, care, first in first trimester Z34.01 ; 13 weeks gestation of Z3A.13 ; Nausea and vomiting during O21.9 ; Other infective acute otitis externa of left ear H60.392 and heartbeat not heard O76 [facility] [place] [id number] [place] [address] [id number] August, Visit for TB skin test Z11.1 and Screening for tuberculosis Z11.1 [facility] [place] [id number] [place] [address] [id number] August, [facility] [place] [id number] [place] [address] [id number] August, [facility] [place] [id number] [place] [address] [id number] August, Normal , first Z34.00 ; 8 weeks gestation of Z3A.08 and Nausea and vomiting in O21.9 [facility] [place] [id number] [place] [address] [id number] Jul, [facility] [place] [address] [id number] Jul, Low back pain at multiple sites M54.5 ; Other specified related conditions, first trimester O26.891 and Constipation by delayed colonic transit K59.01 [facility] [place] [id number] [place] [address] [id number] Jul, test-positive Z32.01 [facility] [place] [id number] [place] [address] [id number] Jul, [facility] [place] [id number] [place] [address] [id number] Apr, Anxiety F41.9 and Irritability and anger R45.4 [facility] [place] [id number] [place] [address] [id number] Apr, Anxiety F41.9 [facility] [place] [id number] [place] [address] [id number] Mar, [address] [place] [address] [id number] Mar, Acute non-recurrent maxillary sinusitis J01.00 and Bronchitis J40 [address] [id number] Mar, CVA tenderness M54.9 ; Acute diffuse otitis externa of both ears H60.313 ; Non- intractable vomiting with nausea, unspecified vomiting type R11.2 ; Date of last menstrual period (LMP) unknown Z78.9 ; Anxiety F41.9 and Anhedonia R45.84 [place] [id number] [place] [address] [id number] Mar, [facility] [address] [address] Mar, Right upper quadrant abdominal pain R10.[address] [id number] Jan, Bronchitis J40 and Acute suppurative otitis media of left ear without spontaneous rupture of tympanic membrane, recurrence not specified H66.002 [place] [address] [place] [address] [id number] Sep, Insect bite, initial encounter W57.XXXA and Erythema L53.9 [place] [address] [place] [address] [id number] May, Ear pain, right H92.[address] [id number] Dec, Otitis externa 380.10 and Sore throat 462 [facility] [address] [place] [address] Nov, Sports physical V70.3 ; Exercise counseling V65.41 and Dietary counseling V65.3 IMMUNIZATIONS No Known Immunizations SOCIAL HISTORY Never Assessed REASON FOR VISIT wants on anxiety med. was off during --ELY mae PLAN OF CARE Activity Details Follow Up 4 Weeks Reason:CHM anxiety VITAL SIGNS Height 67 in 2017-06-19 Weight 192 lbs 2017-06-19 Temperature 99.0 degrees Fahrenheit 2017-06-19 Heart Rate 80 bpm 2017-06-19 Respiratory Rate 16 2017-06-19 BMI 30.07 kg/m2 2017-06-19 Blood pressure systolic 130 mmHg 2017-06-19 Blood pressure diastolic 82 mmHg 2017-06-19 MEDICATIONS Medication Instructions Dosage Frequency Start Date End Date Duration Status Wellbutrin SR 100 mg Orally Once a day 1 tablet in the morning 24h Jun, 0 days Active RESULTS No Results PROCEDURES Procedure Date Ordered Result Body Site COMPLETE CBC W/AUTO DIFF WBC June 19, 2017 COMPREHEN METABOLIC PANEL June 19, 2017 VENIPUNCT, ROUTINE* June 19, 2017 ASSAY THYROID STIM HORMONE June 19, 2017 INSTRUCTIONS MEDICATIONS ADMINISTERED No Known Medications MEDICAL (GENERAL) HISTORY Type Description Date Medical History Mononucleosis Medical History Hearing Loss Medical History Rh negative state in antepartum period, first trimester Medical History ENT consult 10/31/17: chronic otitis externa-ciprodex powder placed. Surgical History section Hospitalization History childbirth only
--- OUTSIDE RECORDS SUMMARY | 2018-09-10 11:13 | XMS REPORT ---
Author Author DASHAWN BAUER Organization [facility] Address [address] [place] [address] Care Team Providers Care Trend Investigator Name Role Phone DASHAWN BAUER Unavailable PROBLEMS Type Condition ICD9-CM Code [id number] Code Onset Dates Condition Status SNOMED Code Problem Mixed obsessional thoughts and acts F42.2 Active 61268545 Problem Current mild episode of major depressive disorder without prior episode F32.0 Active 46216948 Problem Chronic otitis externa of both ears, unspecified type H60.63 Active 22065650 Problem Anxiety F41.9 Active 57801254 Problem Reactive depression F32.9 Active 00001742 Problem Gastroesophageal reflux disease, esophagitis presence not specified K21.9 Active 844998190 ALLERGIES No Known Allergies ENCOUNTERS Encounter Location Date Diagnosis [place] [id number] [place] [address] [id number] Nov, Abdominal pain, unspecified abdominal location R10.9 and Anxiety F41.9 [place] [id number] [place] [address] [id number] Oct, [place] [id number] [place] [address] [id number] Oct, test negative Z32.02 [facility] [id number] [place] [address] [id number] Oct, Acute diffuse otitis externa of left ear H60.[address] [id number] Oct, Acute diffuse otitis externa of right ear H60.311 [place] [id number] [place] [address] [id number] Sep, Sore throat J02.9 and Acute diffuse otitis externa of right ear H60.311 [place] [address] [place] [id number] Sep, [place] [address] [place] [address] [id number] Sep, Sore throat J02.9 and Acute diffuse otitis externa of right ear H60.[address] [id number] Sep, [address] [id number] Sep, Anxiety F41.9 ; Mixed obsessional thoughts and acts F42.2 and Current mild episode of major depressive disorder without prior episode F32.[address] [id number] August, Cough R05 ; Acute non-recurrent maxillary sinusitis J01.00 and Acute diffuse otitis externa of left ear H60.[address] [id number] Jun, Nausea R11.0 ; CVA tenderness M54.9 ; Acute cystitis without hematuria N30.00 and RUQ pain R10.11 [place] [address] [place] [address] [id number] Jun, Anxiety F41.[address] [id number] Jun, [place] [id number] [place] [address] [id number] May, [facility] [id number] [place] [address] Apr, [place] [id number] [place] [address] [id number] Apr, Nonintractable episodic headache, unspecified headache type R51 and Dehydration E86.0 [facility] [id number] [place] [address] Apr, Other viral agents as the cause of diseases classified elsewhere B97.89 and Acute upper respiratory infection, unspecified J06.9 [facility] [address] [place] [address] Mar, care, first in third trimester Z34.03 ; - induced hypertension in third trimester O13.3 and 38 weeks gestation of Z3A.38 [place] [address] [id number] [place] [address] Feb, 37 weeks gestation of Z3A.37 and care, first in third trimester Z34.03 [place] [id number] [place] [address] [id number] Feb, 36 weeks gestation of Z3A.36 and care in third trimester Z34.93 [place] [address] [address] Feb, -induced hypertension in third trimester O13.3 ; Gastroesophageal reflux disease, esophagitis presence not specified K21.9 and 35 weeks gestation of Z3A.[address] [address] Feb, -induced hypertension in third trimester O13.3 ; Chronic otitis externa of both ears, unspecified type H60.63 and 34 weeks gestation of Z3A.34 [place] [id number] [place] [address] Jan, Patient is a currently breast-feeding mother Z39.1 [place] [address] [id number] [place] [address] Jan, -induced hypertension in third trimester O13.3 and 32 weeks gestation of Z3A.32 [place] [id number] [place] [address] [id number] Jan, [place] [address] [address] Jan, 30 weeks gestation of Z3A.30 ; -induced hypertension in third trimester O13.3 and Encounter for immunization Z23 [place] [id number] [place] [address] [id number] Jan, -induced hypertension in third trimester O13.3 [facility] [place] [address] [id number][place] [id number] Jan, [facility] [place] [address] [id number][place] [id number] Jan, [facility] [place] [address] [id number], [place] [id number] Dec, 28 weeks gestation of Z3A.28 and -induced hypertension in third trimester O13.3 [facility] [place] [address] [id number], [place] [id number] Dec, [facility] [address], [place] [address] Dec, [facility] [place] [id number][place] [id number] Dec, [facility] [place] [id number][place] [id number] Dec, care, first in second trimester Z34.02 [facility] [address], [place] [address] Dec, care, first in second trimester Z34.02 [facility] [id number], [place] [id number] Dec, 25 weeks gestation of Z3A.25 [facility] [address] [id number] [place] [address] Nov, [facility] [place] [id number][place] [id number] Nov, 21 weeks gestation of Z3A.21 and Evaluate anatomy not seen on prior sonogram Z36 [facility] [place] [address] [id number], [place] [id number] Nov, [facility] [place] [id number], [place] [id number] Oct, 17 weeks gestation of Z3A.17 and Second trimester Z34.92 [facility] [place] [address] [id number][place] [id number] Oct, [facility] [place] [id number] [place] [address] [id number] Sep, [facility] [id number] [place] [address] [id number] Sep, care, first in first trimester Z34.01 ; 13 weeks gestation of Z3A.13 ; Nausea and vomiting during O21.9 ; Other infective acute otitis externa of left ear H60.392 and heartbeat not heard O76 [facility] [id number] [place] [address] [id number] August, Screening for tuberculosis Z11.1 and Visit for TB skin test Z11.1 [facility] [place] [id number] [place] [address] [id number] August, [facility] [place] [id number] [place] [address] [id number] August, Normal , first Z34.00 ; 8 weeks gestation of Z3A.08 and Nausea and vomiting in O21.9 [facility] [id number] [place] [address] [id number] August, [facility] [id number] [place] [address] [id number] Jul, [facility] [place] [address] [id number] Jul, Low back pain at multiple sites M54.5 ; Other specified related conditions, first trimester O26.891 and Constipation by delayed colonic transit K59.01 [facility] [place] [address] [place] [id number] [place] [address] [id number] Jul, test-positive Z32.01 [facility] [place] [id number] [place] [address] [id number] Jul, [facility] [id number] [place] [address] [id number] Apr, Anxiety F41.9 and Irritability and anger R45.4 [facility] [id number] [place] [address] [id number] Apr, Anxiety F41.9 [facility] [place] [address] [place] [id number] [place] [address] [id number] Mar, [address] [place] [address] [id number] Mar, Acute non-recurrent maxillary sinusitis J01.00 and Bronchitis J40 [address] [id number] Mar, CVA tenderness M54.9 ; Acute diffuse otitis externa of both ears H60.313 ; Non- intractable vomiting with nausea, unspecified vomiting type R11.2 ; Date of last menstrual period (LMP) unknown Z78.9 ; Anxiety F41.9 and Anhedonia R45.84 [place] [id number] [place] [address] [id number] Mar, [facility] [address] [address] Mar, Right upper quadrant abdominal pain R10.[address] [id number] Jan, Bronchitis J40 and Acute suppurative otitis media of left ear without spontaneous rupture of tympanic membrane, recurrence not specified H66.002 [place] [id number] [place] [address] [id number] Sep, Insect bite, initial encounter W57.XXXA and Erythema L53.9 [place] [address] [place] [address] [id number] May, Ear pain, right H92.[address] [id number] Dec, Otitis externa 380.10 and Sore throat 462 [facility] [address] [place] [address] Nov, Sports physical V70.3 ; Exercise counseling V65.41 and Dietary counseling V65.3 IMMUNIZATIONS No Known Immunizations SOCIAL HISTORY Never Assessed REASON FOR VISIT Sore throat/body aches/congestion started a week ago Rosa Elena ARGUETA PLAN OF CARE Activity Details Follow Up if s/s not improving with PCP or in Clinic Reason: VITAL SIGNS Height 67 in 2017-08-28 Weight 192.4 lbs 2017-08-28 Temperature 97.8 degrees Fahrenheit 2017-08-28 Heart Rate 78 bpm 2017-08-28 Respiratory Rate 16 2017-08-28 BMI 30.13 kg/m2 2017-08-28 Blood pressure systolic 122 mmHg 2017-08-28 Blood pressure diastolic 68 mmHg 2017-08-28 MEDICATIONS Medication Instructions Dosage Frequency Start Date End Date Duration Status ProAir HFA 108 (90 Base) MCG/ACT Inhalation every 6 hrs 2 puffs as needed 6h August, 30 days Active Wellbutrin SR 100 mg Orally Once a day 1 tablet in the morning 24h Jun, 0 days Active Ciprodex 0.3-0.1 % Otic Twice a day 4 drops into affected ear 12h August, 07 days Active Augmentin 875-125 MG Orally every 12 hrs 1 tablet 12h August, August, 10 day(s) Active PredniSONE 10 mg Orally Once a day 2 tablet 24h August, August, 05 days Active RESULTS No Results PROCEDURES No Known procedures INSTRUCTIONS MEDICATIONS ADMINISTERED No Known Medications MEDICAL (GENERAL) HISTORY Type Description Date Medical History Mononucleosis Medical History Hearing Loss Medical History Rh negative state in antepartum period, first trimester Medical History ENT consult 10/31/17: chronic otitis externa-ciprodex powder placed. Surgical History section Hospitalization History childbirth only
--- OUTSIDE RECORDS SUMMARY | 2018-09-10 11:13 | XMS REPORT ---
Author Author DASHAWN BAUER Organization [facility] Address [address] [place] [address] Care Team Providers Care Consumer Lender Name Role Phone DASHAWN BAUER Unavailable PROBLEMS Type Condition ICD9-CM Code [id number] Code Onset Dates Condition Status SNOMED Code Problem Mixed obsessional thoughts and acts F42.2 Active 89821514 Problem Current mild episode of major depressive disorder without prior episode F32.0 Active 57266362 Problem Chronic otitis externa of both ears, unspecified type H60.63 Active 27228678 Problem Anxiety F41.9 Active 12561135 Problem Reactive depression F32.9 Active 24713058 Problem Gastroesophageal reflux disease, esophagitis presence not specified K21.9 Active 939056309 ALLERGIES No Known Allergies ENCOUNTERS Encounter Location Date Diagnosis [facility] [address] [id number] Oct, [place] [address] [id number] Oct, test negative Z32.[address] [id number] Oct, Acute diffuse otitis externa of left ear H60.[address] [id number] Oct, Acute diffuse otitis externa of right ear H60.[address] [id number] Sep, Sore throat J02.9 and Acute diffuse otitis externa of right ear H60.311 [place] [id number] [place] [address] [id number] Sep, [address] [id number] Sep, Sore throat J02.9 and Acute diffuse otitis externa of right ear H60.[address] [id number] Sep, [address] [id number] Sep, Anxiety F41.9 ; Mixed obsessional thoughts and acts F42.2 and Current mild episode of major depressive disorder without prior episode F32.[address] [id number] August, Cough R05 ; Acute non-recurrent maxillary sinusitis J01.00 and Acute diffuse otitis externa of left ear H60.[address] [id number] Jun, Nausea R11.0 ; CVA tenderness M54.9 ; Acute cystitis without hematuria N30.00 and RUQ pain R10.[address] [id number] Jun, Anxiety F41.9 [place] [id number] [place] [address] [id number] Jun, [place] [id number] [place] [address] [id number] May, [facility] [id number] [place] [address] Apr, [place] [id number] [place] [address] [id number] Apr, Nonintractable episodic headache, unspecified headache type R51 and Dehydration E86.0 [facility] [id number] [place] [address] Apr, Other viral agents as the cause of diseases classified elsewhere B97.89 and Acute upper respiratory infection, unspecified J06.9 [facility] [id number] [place] [address] Mar, care, first in third trimester Z34.03 ; - induced hypertension in third trimester O13.3 and 38 weeks gestation of Z3A.38 [place] [address] [place] [id number] [place] [address] Feb, 37 weeks gestation of Z3A.37 and care, first in third trimester Z34.03 [facility] [id number] [place] [address] [id number] Feb, 36 weeks gestation of Z3A.36 and care in third trimester Z34.93 [place] [address] [place] [address] [id number] [place] [address] Feb, -induced hypertension in third trimester O13.3 ; Gastroesophageal reflux disease, esophagitis presence not specified K21.9 and 35 weeks gestation of Z3A.35 [place] [address] [place] [id number] [place] [address] Feb, -induced hypertension in third trimester O13.3 ; Chronic otitis externa of both ears, unspecified type H60.63 and 34 weeks gestation of Z3A.34 [place] [address] [address] [id number] [place] [address] Jan, Patient is a currently breast-feeding mother Z39.1 [place] [id number] [place] [address] Jan, -induced hypertension in third trimester O13.3 and 32 weeks gestation of Z3A.32 [place] [id number] [place] [address] [id number] Jan, [place] [address] [place] [id number] [place] [address] Jan, 30 weeks gestation of Z3A.30 ; -induced hypertension in third trimester O13.3 and Encounter for immunization Z23 [facility] [id number] [place] [address] [id number] Jan, -induced hypertension in third trimester O13.3 [place] [id number] [place] [address] [id number] Jan, [facility] [address] [place] [address] [place] [id number] Jan, [facility] [id number] [place] [id number] Dec, 28 weeks gestation of Z3A.28 and -induced hypertension in third trimester O13.3 [facility] [id number] [place] [id number] Dec, [place] [address] [place] [id number] [place] [address] Dec, [facility] [id number] [place] [id number] Dec, [facility] [address] [id number] [place] [address] [id number] Dec, care, first in second trimester Z34.02 [facility] [address] [place] [address] Dec, care, first in second trimester Z34.02 [place] [id number] [place] [id number] Dec, 25 weeks gestation of Z3A.[address] [id number] [place] [address] Nov, [facility] [address] [address] Nov, 21 weeks gestation of Z3A.21 and Evaluate anatomy not seen on prior sonogram Z36 [facility] [id number] [place] [id number] Nov, [facility] [address] [id number] Oct, 17 weeks gestation of Z3A.17 and Second trimester Z34.92 [facility] [id number] [place] [address] [id number] Oct, [facility] [id number] [place] [id number] Sep, [address] [place] [address] [id number] Sep, care, first in first trimester Z34.01 ; 13 weeks gestation of Z3A.13 ; Nausea and vomiting during O21.9 ; Other infective acute otitis externa of left ear H60.392 and heartbeat not heard O76 [place] [id number] [place] [address] [id number] August, Screening for tuberculosis Z11.1 and Visit for TB skin test Z11.[address] [id number] August, [address] [id number] August, [address] [id number] August, Normal , first Z34.00 ; 8 weeks gestation of Z3A.08 and Nausea and vomiting in O21.[address] [id number] Jul, [address] [id number] Jul, Low back pain at multiple sites M54.5 ; Other specified related conditions, first trimester O26.891 and Constipation by delayed colonic transit K59.01 [place] [id number] [place] [address] [id number] Jul, test-positive Z32.[address] [id number] Jul, [address] [id number] Apr, Anxiety F41.9 and Irritability and anger R45.[address] [id number] Apr, Anxiety F41.[address] [id number] Mar, [address] [id number] Mar, Acute non-recurrent maxillary sinusitis J01.00 and Bronchitis J40 [id number] [place] [address] [id number] 07 Mar, 2016 CVA tenderness M54.9 ; Acute diffuse otitis externa of both ears H60.313 ; Non- intractable vomiting with nausea, unspecified vomiting type R11.2 ; Date of last menstrual period (LMP) unknown Z78.9 ; Anxiety F41.9 and Anhedonia R45.[address] [id number] Mar, [facility] [address] [address] Mar, Right upper quadrant abdominal pain R10.[address] [id number] Jan, Bronchitis J40 and Acute suppurative otitis media of left ear without spontaneous rupture of tympanic membrane, recurrence not specified H66.[address] [id number] Sep, Insect bite, initial encounter W57.XXXA and Erythema L53.9 [place] [id number] [place] [address] [id number] May, Ear pain, right H92.01 [place] [id number] [place] [address] [id number] Dec, Otitis externa 380.10 and Sore throat 462 [facility] [address] [place] [address] Nov, Sports physical V70.3 ; Exercise counseling V65.41 and Dietary counseling V65.3 IMMUNIZATIONS No Known Immunizations SOCIAL HISTORY Never Assessed REASON FOR VISIT acute abd pain with nausea, pain in back where she got her epidural for c-sectio tresa Shafer RN PLAN OF CARE Activity Details Follow Up 1 Week, prn Reason:Abd pain VITAL SIGNS Height 67 in 2017-07-04 Weight 189.8 lbs 2017-07-04 Temperature 99.3 degrees Fahrenheit 2017-07-04 Heart Rate 100 bpm 2017-07-04 Respiratory Rate 18 2017-07-04 BMI 29.72 kg/m2 2017-07-04 Blood pressure systolic 128 mmHg 2017-07-04 Blood pressure diastolic 64 mmHg 2017-07-04 MEDICATIONS Medication Instructions Dosage Frequency Start Date End Date Duration Status Macrobid 100 mg Orally every 12 hrs 1 capsule with food 12h Jun, Jun, 7 day(s) Active Promethazine HCl 25 MG Orally 4 times a day 1 tablet as needed for nausea 6h Jun, Jun, 05 days Active Wellbutrin SR 100 mg Orally Once a day 1 tablet in the morning 24h Jun, 0 days Active RESULTS Name Result Date Reference Range TEST, URINE (IN HOUSE) 2017-07-04 RESULTS negative Lot # [id number] Control positive Exp date 12/14/18 UA LONG DIP (IN HOUSE) 2017-07-04 Lot # [id number] Exp date 01/31 Clarity clear Color yellow Odor no GLU neg DAVE neg KET neg SG 1.015 BLO neg pH 6.0 Protein neg URO 0.2 NIT neg RADHA trace Lot # Exp date Ultrasound : Abdominal, COMPLETE 2017-07-06 PROCEDURES Procedure Date Ordered Result Body Site URINALYSIS, AUTO, W/O SCOPE July 04, 2017 URINE TEST July 04, 2017 INSTRUCTIONS MEDICATIONS ADMINISTERED No Known Medications MEDICAL (GENERAL) HISTORY Type Description Date Medical History Mononucleosis Medical History Hearing Loss Medical History Rh negative state in antepartum period, first trimester Surgical History section Hospitalization History childbirth only
--- OUTSIDE RECORDS SUMMARY | 2018-09-10 11:13 | XMS REPORT ---
Author Author HERMELINDO PRUITT Organization [facility] Address [address] [place] [address] Care Team Providers Care Abalone Diver Name Role Phone HERMELINDO PRUITT Unavailable PROBLEMS Type Condition ICD9-CM Code LWS24-UQ Code Onset Dates Condition Status SNOMED Code Problem Mixed obsessional thoughts and acts F42.2 Active 14273640 Problem Current mild episode of major depressive disorder without prior episode F32.0 Active 93161899 Problem Chronic otitis externa of both ears, unspecified type H60.63 Active 96033105 Problem Anxiety F41.9 Active 06143177 Problem Reactive depression F32.9 Active 27821282 Problem Gastroesophageal reflux disease, esophagitis presence not specified K21.9 Active 717878246 ALLERGIES No Information ENCOUNTERS Encounter Location Date Diagnosis [address] [id number] Nov, Abdominal pain, unspecified abdominal location R10.9 and Anxiety F41.[address] [id number] Oct, [address] [id number] Oct, test negative Z32.[address] [id number] Oct, Acute diffuse otitis externa of left ear H60.[address] [id number] Oct, Acute diffuse otitis externa of right ear H60.[address] [id number] Sep, Sore throat J02.9 and Acute diffuse otitis externa of right ear H60.[address] [place] [id number] Sep, [place] [id number] [place] [address] [id number] Sep, Sore throat J02.9 and Acute diffuse otitis externa of right ear H60.[address] [id number] Sep, [address] [id number] Sep, Anxiety F41.9 ; Mixed obsessional thoughts and acts F42.2 and Current mild episode of major depressive disorder without prior episode F32.[address] [id number] August, Cough R05 ; Acute non-recurrent maxillary sinusitis J01.00 and Acute diffuse otitis externa of left ear H60.[address] [id number] Jun, Nausea R11.0 ; CVA tenderness M54.9 ; Acute cystitis without hematuria N30.00 and RUQ pain R10.11 [place] [id number] [place] [address] [id number] Jun, Anxiety F41.9 [place] [id number] [place] [address] [id number] Jun, [place] [id number] [place] [address] [id number] May, [facility] [id number] [place] [phone] Apr, [place] [id number] [place] [address] [id number] Apr, Nonintractable episodic headache, unspecified headache type R51 and Dehydration E86.0 [facility] [id number] [place] [id number] Apr, Other viral agents as the cause of diseases classified elsewhere B97.89 and Acute upper respiratory infection, unspecified J06.9 [facility] [address] [address] Mar, care, first in third trimester Z34.03 ; - induced hypertension in third trimester O13.3 and 38 weeks gestation of Z3A.38 [place] [address] [place] [address] [id number] [place] [phone] Feb, 37 weeks gestation of Z3A.37 and care, first in third trimester Z34.03 [place] [id number] [place] [address] [id number] Feb, 36 weeks gestation of Z3A.36 and care in third trimester Z34.93 [place] [address] [address] Feb, -induced hypertension in third trimester O13.3 ; Gastroesophageal reflux disease, esophagitis presence not specified K21.9 and 35 weeks gestation of Z3A.35 [place] [address] [address] Feb, -induced hypertension in third trimester O13.3 ; Chronic otitis externa of both ears, unspecified type H60.63 and 34 weeks gestation of Z3A.34 [place] [address] [address] Jan, Patient is a currently breast-feeding mother Z39.1 [place] [address] [place] [id number] [place] [phone] Jan, -induced hypertension in third trimester O13.3 and 32 weeks gestation of Z3A.32 [place] [id number] [place] [address] [id number] Jan, [place] [address] [address] Jan, 30 weeks gestation of Z3A.30 ; -induced hypertension in third trimester O13.3 and Encounter for immunization Z23 [facility] [id number] [place] [address] [id number] Jan, -induced hypertension in third trimester O13.3 [facility] [address] [id number] [id number] Jan, [facility] [address] [id number][place] [id number] Jan, [facility] [address] [id number][place] [id number] Dec, 28 weeks gestation of Z3A.28 and -induced hypertension in third trimester O13.3 [facility] [address] [id number][place] [id number] Dec, [facility] [address] [address] Dec, [facility] [id number][place] [id number] Dec, [facility] [id number][place] [id number] Dec, care, first in second trimester Z34.02 [facility] [address] [address] Dec, care, first in second trimester Z34.02 [facility] [id number][place] [id number] Dec, 25 weeks gestation of Z3A.25 [facility] [address] [id number] [place] [address] Nov, [facility] [id number][place] [id number] Nov, 21 weeks gestation of Z3A.21 and Evaluate anatomy not seen on prior sonogram Z36 [facility] [address] [id number][place] [id number] Nov, [facility] [id number][place] [id number] Oct, 17 weeks gestation of Z3A.17 and Second trimester Z34.92 [facility] [address] [id number][place] [id number] Oct, [facility] [id number] [place] [address] [id number] Sep, [facility] [id number] [place] [address] [id number] Sep, care, first in first trimester Z34.01 ; 13 weeks gestation of Z3A.13 ; Nausea and vomiting during O21.9 ; Other infective acute otitis externa of left ear H60.392 and heartbeat not heard O76 [facility] [id number] [place] [address] [id number] August, Visit for TB skin test Z11.1 and Screening for tuberculosis Z11.1 [facility] [id number] [place] [address] [id number] August, [facility] [address] [id number] August, [place] [id number] [place] [address] [id number] August, Normal , first Z34.00 ; 8 weeks gestation of Z3A.08 and Nausea and vomiting in O21.9 [facility] [id number] [place] [address] [id number] Jul, [address] [id number] Jul, Low back pain at multiple sites M54.5 ; Other specified related conditions, first trimester O26.891 and Constipation by delayed colonic transit K59.01 [facility] [place] [address] [id number] [place] [address] [id number] Jul, test-positive Z32.01 [facility] [id number] [place] [address] [id number] Jul, [facility] [id number] [place] [address] [id number] Apr, Anxiety F41.9 and Irritability and anger R45.4 [facility] [id number] [place] [address] [id number] Apr, Anxiety F41.9 [facility] [place] [id number] [place] [address] [id number] Mar, [place] [id number] [place] [address] [id number] Mar, Acute non-recurrent maxillary sinusitis J01.00 and Bronchitis J40 [address] [id number] Mar, CVA tenderness M54.9 ; Acute diffuse otitis externa of both ears H60.313 ; Non- intractable vomiting with nausea, unspecified vomiting type R11.2 ; Date of last menstrual period (LMP) unknown Z78.9 ; Anxiety F41.9 and Anhedonia R45.84 [place] [id number] [place] [address] [id number] Mar, [facility] [address] [address] Mar, Right upper quadrant abdominal pain R10.[address] [id number] Jan, Bronchitis J40 and Acute suppurative otitis media of left ear without spontaneous rupture of tympanic membrane, recurrence not specified H66.[address] [id number] Sep, Insect bite, initial encounter W57.XXXA and Erythema L53.[address] [id number] May, Ear pain, right H92.[address] [id number] Dec, Otitis externa 380.10 and Sore throat 462 [facility] [id number] [place] [address] Nov, Sports physical V70.3 ; Exercise counseling [...]
--- OUTSIDE RECORDS SUMMARY | 2018-09-10 11:14 | XMS REPORT ---
Author Author EDMOND HERMELINDO Organization [facility] Address [address] [place] [address] Care Team Providers Care Wireline Field Operator Name Role Phone HERMELINDO PRUITT Unavailable PROBLEMS Type Condition ICD9-CM Code FCB51-CI Code Onset Dates Condition Status SNOMED Code Problem Reactive depression F32.9 Active 71234376 Problem Gastroesophageal reflux disease, esophagitis presence not specified K21.9 Active 443780390 Problem Constipation by delayed colonic transit K59.01 Active 68355772 Problem Anxiety F41.9 Active 08821666 Problem Chronic otitis externa of both ears, unspecified type H60.63 Active 78345764 Problem -induced hypertension in third trimester O13.3 Active 86625279 ALLERGIES No Known Allergies ENCOUNTERS Encounter Location Date Diagnosis [address] [id number] Jun, Nausea R11.0 ; CVA tenderness M54.9 ; Acute cystitis without hematuria N30.00 and RUQ pain R10.11 [facility] [address] [id number] Jun, Anxiety F41.9 and Reactive depression F32.9 [facility] [address] [place] [id number] [place] [address] [id number] Jun, [place] [id number] [place] [address] [id number] May, [facility] [address] [address] Apr, [address] [id number] Apr, Nonintractable episodic headache, unspecified headache type R51 and Dehydration E86.0 [facility] [address] [place] [address] Apr, Other viral agents as the cause of diseases classified elsewhere B97.89 and Acute upper respiratory infection, unspecified J06.9 [place] [id number] [place] [address] Mar, care, first in third trimester Z34.03 ; - induced hypertension in third trimester O13.3 and 38 weeks gestation of Z3A.38 [place] [id number] [place] [address] Feb, 37 weeks gestation of Z3A.37 and care, first in third trimester Z34.03 [place] [id number] [place] [address] [id number] Feb, 36 weeks gestation of Z3A.36 and care in third trimester Z34.[address] [address] Feb, -induced hypertension in third trimester O13.3 ; Gastroesophageal reflux disease, esophagitis presence not specified K21.9 and 35 weeks gestation of Z3A.35 [place] [id number] [place] [address] Feb, -induced hypertension in third trimester O13.3 ; Chronic otitis externa of both ears, unspecified type H60.63 and 34 weeks gestation of Z3A.34 [place] [id number] [place] [address] Jan, Patient is a currently breast-feeding mother Z39.1 [place] [id number] [place] [phone] Jan, -induced hypertension in third trimester O13.3 and 32 weeks gestation of Z3A.32 [place] [id number] [place] [address] [id number] Jan, [place] [id number] [place] [phone] Jan, 30 weeks gestation of Z3A.30 ; -induced hypertension in third trimester O13.3 and Encounter for immunization Z23 [facility] [id number] [place] [address] [id number] Jan, -induced hypertension in third trimester O13.3 [facility] [id number] [place] [address] [id number] Jan, [facility] [address] [place] [id number] [place] [address] [id number] Jan, [facility] [address] [place] [id number] [place] [address] [id number] Dec, 28 weeks gestation of Z3A.28 and -induced hypertension in third trimester O13.3 [facility] [address] [place] [address] [id number] [place] [address] [id number] Dec, [facility] [address], [place] [address] Dec, [facility] [address] [place] [address] [id number] [place] [address] [id number] Dec, [facility] [address] [place] [address] [id number] [place] [address] [id number] Dec, care, first in second trimester Z34.02 [facility] [address] [id number] [place] [address] Dec, care, first in second trimester Z34.02 [facility] [id number] [place] [id number] Dec, 25 weeks gestation of Z3A.[address] [facility] [address] [id number] [place] [address] Nov, [facility] [id number] [place] [address] [id number] Nov, 21 weeks gestation of Z3A.21 and Evaluate anatomy not seen on prior sonogram Z36 [facility] [id number] [place] [id number] Nov, [facility] [address] [place] [id number] [place] [address] [id number] Oct, 17 weeks gestation of Z3A.17 and Second trimester Z34.92 [facility] [id number] [place] [address] [id number] Oct, [facility] [address] [place] [id number] [place] [address] [id number] Sep, [facility] [address] [place] [id number] [place] [address] [id number] Sep, care, first in first trimester Z34.01 ; 13 weeks gestation of Z3A.13 ; Nausea and vomiting during O21.9 ; Other infective acute otitis externa of left ear H60.392 and heartbeat not heard O76 [facility] [address] [address] [id number] [place] [address] [id number] August, Visit for TB skin test Z11.1 and Screening for tuberculosis Z11.1 [facility] [address] [address] [id number] [place] [address] [id number] August, [facility] [address] [place] [id number] [place] [address] [id number] August, [facility] [address] [place] [address] [id number] [place] [address] [id number] August, Normal , first Z34.00 ; 8 weeks gestation of Z3A.08 and Nausea and vomiting in O21.9 [facility] [address] [place] [address] [id number] [place] [address] [id number] Jul, [place] [address] [place] [address] [id number] [place] [address] [id number] Jul, Low back pain at multiple sites M54.5 ; Other specified related conditions, first trimester O26.891 and Constipation by delayed colonic transit K59.01 [facility] [address] [place] [address] [id number] [place] [address] [id number] Jul, test-positive Z32.01 [facility] [address] [place] [id number] [place] [address] [id number] Jul, [facility] [address] [id number] [place] [address] [id number] Apr, Anxiety F41.9 and Irritability and anger R45.4 [place] [id number] [place] [address] [id number] Apr, Anxiety F41.[address] [id number] Mar, [address] [id number] Mar, Acute non-recurrent maxillary sinusitis J01.00 and Bronchitis J40 [address] [id number] Mar, CVA tenderness M54.9 ; Acute diffuse otitis externa of both ears H60.313 ; Non- intractable vomiting with nausea, unspecified vomiting type R11.2 ; Date of last menstrual period (LMP) unknown Z78.9 ; Anxiety F41.9 and Anhedonia R45.84 [place] [id number] [place] [address] [id number] Mar, [facility] [address] [address] Mar, Right upper quadrant abdominal pain R10.[address] [id number] Jan, Bronchitis J40 and Acute suppurative otitis media of left ear without spontaneous rupture of tympanic membrane, recurrence not specified H66.002 [place] [id number] [place] [address] [id number] Sep, Insect bite, initial encounter W57.XXXA and Erythema L53.[address] [id number] May, Ear pain, right H92.[address] [id number] Dec, Otitis externa 380.10 and Sore throat 462 [facility] [address] [address] Nov, Sports physical V70.3 ; Exercise counseling V65.41 and Dietary counseling V65.3 IMMUNIZATIONS No Known Immunizations SOCIAL HISTORY Never Assessed REASON FOR VISIT Decreased Movement Rosa Elena ARGUETA PLAN OF CARE Activity Details Follow Up keep as previously instructed Reason: VITAL SIGNS Height 67 in 2017-02-01 Weight 196.6 lbs 2017-02-01 Heart Rate 90 bpm 2017-02-01 Respiratory Rate 16 2017-02-01 BMI 30.792 kg/m2 2017-02-01 Blood pressure systolic 132 mmHg 2017-02-01 Blood pressure diastolic 72 mmHg 2017-02-01 MEDICATIONS Medication Instructions Dosage Frequency Start Date End Date Duration Status Formula 28-0.8-235 MG Orally Once a day 1 capsule 24h Jul, 0 days Active RESULTS No Results PROCEDURES No Known procedures INSTRUCTIONS MEDICATIONS ADMINISTERED No Known Medications MEDICAL (GENERAL) HISTORY Type Description Date Medical History Mononucleosis Medical History Hearing Loss Medical History Rh negative state in antepartum period, first trimester Surgical History section
--- OUTSIDE RECORDS SUMMARY | 2018-09-10 11:14 | XMS REPORT ---
Author Author DION SAMUEL [facility] Address [address] [place] [address] Care Team Providers Care Through Operator Name Role Phone DIONCATALINA ELISEHANY Unavailable PROBLEMS Type Condition ICD9-CM Code [id number] Code Onset Dates Condition Status SNOMED Code Problem Reactive depression F32.9 Active 49759931 Problem Gastroesophageal reflux disease, esophagitis presence not specified K21.9 Active 259822629 Problem Constipation by delayed colonic transit K59.01 Active 78454322 Problem Anxiety F41.9 Active 90683048 Problem Chronic otitis externa of both ears, unspecified type H60.63 Active 63380246 Problem -induced hypertension in third trimester O13.3 Active 47889254 ALLERGIES No Information ENCOUNTERS Encounter Location Date Diagnosis [address] [id number] August, Cough R05 ; Acute non-recurrent maxillary sinusitis J01.00 and Acute diffuse otitis externa of left ear H60.312 [place] [id number] [place] [address] [id number] Jun, Nausea R11.0 ; CVA tenderness M54.9 ; Acute cystitis without hematuria N30.00 and RUQ pain R10.11 [place] [address] [place] [address] [id number] Jun, Anxiety F41.9 and Reactive depression F32.9 [place] [id number] [place] [address] [id number] Jun, [place] [address] [place] [address] [id number] May, [facility] [address] [place] [phone] Apr, [place] [id number] [place] [address] [id number] Apr, Nonintractable episodic headache, unspecified headache type R51 and Dehydration E86.0 [facility] [address] [place] [address] Apr, Other viral agents as the cause of diseases classified elsewhere B97.89 and Acute upper respiratory infection, unspecified J06.9 [place] [address] [place] [id number] [place] [address] Mar, care, first in third trimester Z34.03 ; - induced hypertension in third trimester O13.3 and 38 weeks gestation of Z3A.38 [place] [id number] [place] [phone] Feb, 37 weeks gestation of Z3A.37 and care, first in third trimester Z34.03 [address] [place] [address] [id number] Feb, 36 weeks gestation of Z3A.36 and care in third trimester Z34.93 [facility] [address] [place] [id number] [place] [address] Feb, -induced hypertension in third trimester O13.3 ; Gastroesophageal reflux disease, esophagitis presence not specified K21.9 and 35 weeks gestation of Z3A.35 [facility] [address] [place] [phone] Feb, -induced hypertension in third trimester O13.3 ; Chronic otitis externa of both ears, unspecified type H60.63 and 34 weeks gestation of Z3A.34 [facility] [address] [place] [address] Jan, Patient is a currently breast-feeding mother Z39.1 [facility] [address] [place] [address] [id number] [place] [phone] Jan, -induced hypertension in third trimester O13.3 and 32 weeks gestation of Z3A.32 [place] [id number] [phone] Jan, [facility] [address] [id number] [place] [address] Jan, 30 weeks gestation of Z3A.30 ; -induced hypertension in third trimester O13.3 and Encounter for immunization Z23 [facility] [id number] [phone] Jan, -induced hypertension in third trimester O13.3 [facility] [id number][place] [id number] Jan, [facility] [id number][place] [id number] Jan, [facility] [address] [place] [id number] [place] [address] [id number] Dec, 28 weeks gestation of Z3A.28 and -induced hypertension in third trimester O13.3 [facility] [address] [place] [address] [id number] [id number] Dec, [facility] [address] [address] Dec, [facility] [id number][place] [id number] Dec, [facility] [address] [place] [address] [id number] [phone] Dec, care, first in second trimester Z34.02 [place] [address] [address] Dec, care, first in second trimester Z34.02 [facility] [address] [place] [id number][place] [phone] Dec, 25 weeks gestation of Z3A.25 [facility] [address] [id number] [address] Nov, [facility] [address] [id number] [phone] Nov, 21 weeks gestation of Z3A.21 and Evaluate anatomy not seen on prior sonogram Z36 [facility] [address] [id number], [place] [phone] Nov, [facility] [address] [id number][place] [id number] Oct, 17 weeks gestation of Z3A.17 and Second trimester Z34.92 [facility] [address] [id number][place] [phone] Oct, [facility] [address] [id number][place] [phone] Sep, [facility] [address] [id number] [place] [phone] Sep, care, first in first trimester Z34.01 ; 13 weeks gestation of Z3A.13 ; Nausea and vomiting during O21.9 ; Other infective acute otitis externa of left ear H60.392 and heartbeat not heard O76 [facility] [id number], [place] [id number] August, Visit for TB skin test Z11.1 and Screening for tuberculosis Z11.1 [facility] [id number], [place] [phone] August, [facility] [id number] [place] [address] [id number] August, [facility] [id number], [place] [id number] August, Normal , first Z34.00 ; 8 weeks gestation of Z3A.08 and Nausea and vomiting in O21.9 [facility] [address] [id number][place] [id number] Jul, [facility] [id number], [place] [id number] Jul, Low back pain at multiple sites M54.5 ; Other specified related conditions, first trimester O26.891 and Constipation by delayed colonic transit K59.01 [facility] [address] [id number][place] [phone] Jul, test-positive Z32.01 [facility] [id number], [place] [id number] Jul, [address] [place] [address] [id number] Apr, Anxiety F41.9 and Irritability and anger R45.4 [place] [address] [place] [address] [id number] Apr, Anxiety F41.[address] [id number] Mar, [address] [id number] Mar, Acute non-recurrent maxillary sinusitis J01.00 and Bronchitis J40 [address] [id number] Mar, CVA tenderness M54.9 ; Acute diffuse otitis externa of both ears H60.313 ; Non- intractable vomiting with nausea, unspecified vomiting type R11.2 ; Date of last menstrual period (LMP) unknown Z78.9 ; Anxiety F41.9 and Anhedonia R45.84 [place] [address] [place] [address] [id number] Mar, [facility] [address] [address] Mar, Right upper quadrant abdominal pain R10.[address] [id number] Jan, Bronchitis J40 and Acute suppurative otitis media of left ear without spontaneous rupture of tympanic membrane, recurrence not specified H66.002 [place] [address] [place] [address] [id number] Sep, Insect bite, initial encounter W57.XXXA and Erythema L53.[address] [id number] May, Ear pain, right H92.[address] [id number] Dec, Otitis externa 380.10 and Sore throat 462 [facility] [address] [address] Nov, Sports physical V70.3 ; Exercise counseling V65.41 and Dietary counseling V65.3 IMMUNIZATIONS No Known Immunizations SOCIAL HISTORY Never Assessed REASON FOR VISIT OB f/u - 2 weeks-ELY Munoz PLAN OF CARE Activity Details Follow Up 1 Week Reason: VITAL SIGNS Height 67 in 2017-03-01 Weight 195 lbs 2017-03-01 Temperature 98.3 degrees Fahrenheit 2017-03-01 Heart Rate 80 bpm 2017-03-01 Respiratory Rate 20 2017-03-01 BMI 30.541 kg/m2 2017-03-01 Blood pressure systolic 122 mmHg 2017-03-01 Blood pressure diastolic 80 mmHg 2017-03-01 MEDICATIONS Medication Instructions Dosage Frequency Start Date End Date Duration Status Ranitidine HCl 150 MG Orally Once a day 1 capsule at bedtime 24h Feb, 30 day(s) Active RESULTS No Results PROCEDURES Procedure Date Ordered Result Body Site LAB NOT BILLED BY [employer] Mar 01, 2017 URINE-NO MICRO Mar 01, 2017 VENIPUNCT, ROUTINE* Mar 01, 2017 INSTRUCTIONS MEDICATIONS ADMINISTERED No Known Medications MEDICAL (GENERAL) HISTORY Type Description Date Medical History Mononucleosis Medical History Hearing Loss Medical History Rh negative state in antepartum period, first trimester Surgical History section
--- OUTSIDE RECORDS SUMMARY | 2018-09-10 11:14 | XMS REPORT ---
Author Author DION SAMUEL [facility] Address [address] [place] [address] Care Team Providers Care Dry Kiln Operator Helper Name Role Phone ASHLEY BYRDY Unavailable PROBLEMS Type Condition ICD9-CM Code BMW89-XG Code Onset Dates Condition Status SNOMED Code Problem Reactive depression F32.9 Active 49911745 Problem Gastroesophageal reflux disease, esophagitis presence not specified K21.9 Active 844498298 Problem Constipation by delayed colonic transit K59.01 Active 94495754 Problem Anxiety F41.9 Active 35789377 Problem Chronic otitis externa of both ears, unspecified type H60.63 Active 26159597 Problem -induced hypertension in third trimester O13.3 Active 02881933 ALLERGIES No Known Allergies ENCOUNTERS Encounter Location Date Diagnosis [address] [id number] Jun, Nausea R11.0 ; CVA tenderness M54.9 ; Acute cystitis without hematuria N30.00 and RUQ pain R10.11 [facility] [address] [id number] Jun, Anxiety F41.9 and Reactive depression F32.9 [place] [id number] [place] [id number] Jun, [address] [id number] May, [facility] [address] [address] Apr, [address] [id number] Apr, Nonintractable episodic headache, unspecified headache type R51 and Dehydration E86.0 [facility] [address] [address] Apr, Other viral agents as the cause of diseases classified elsewhere B97.89 and Acute upper respiratory infection, unspecified J06.9 [place] [address] [place] [id number] [place] [address] Mar, care, first in third trimester Z34.03 ; - induced hypertension in third trimester O13.3 and 38 weeks gestation of Z3A.38 [place] [address] [place] [id number] [place] [address] Feb, 37 weeks gestation of Z3A.37 and care, first in third trimester Z34.03 [place] [id number] [place] [address] [id number] Feb, 36 weeks gestation of Z3A.36 and care in third trimester Z34.93 [place] [address] [place] [id number] [place] [phone] Feb, -induced hypertension in third trimester O13.3 ; Gastroesophageal reflux disease, esophagitis presence not specified K21.9 and 35 weeks gestation of Z3A.35 [place] [address] [place] [id number] [place] [phone] Feb, -induced hypertension in third trimester O13.3 ; Chronic otitis externa of both ears, unspecified type H60.63 and 34 weeks gestation of Z3A.34 [place] [address] [place] [id number] [place] [phone] Jan, Patient is a currently breast-feeding mother Z39.1 [place] [address] [place] [id number] [place] [phone] Jan, -induced hypertension in third trimester O13.3 and 32 weeks gestation of Z3A.32 [place] [id number] [place] [address] [id number] Jan, [place] [address] [place] [id number] [place] [phone] Jan, 30 weeks gestation of Z3A.30 ; -induced hypertension in third trimester O13.3 and Encounter for immunization Z23 [facility] [address] [place] [address] [id number] [place] [address] [id number] Jan, -induced hypertension in third trimester O13.3 [facility] [id number] [place] [address] [id number] Jan, [facility] [address] [place] [id number] [place] [address] [id number] Jan, [facility] [address] [place] [id number] [place] [address] [id number] Dec, 28 weeks gestation of Z3A.28 and -induced hypertension in third trimester O13.3 [facility] [address] [place] [id number] [place] [address] [id number] Dec, [facility] [address] [place] [address] [id number] [place] [phone] Dec, [facility] [address] [place] [address] [id number] [place] [address] [id number] Dec, [facility] [address] [place] [id number] [place] [address] [id number] Dec, care, first in second trimester Z34.02 [place] [address] [place] [id number] [place] [phone] Dec, care, first in second trimester Z34.02 [facility] [address] [id number] Dec, 25 weeks gestation of Z3A.25 [facility] [address] [id number] [place] [address] Nov, [facility] [address]100[place] [id number] Nov, 21 weeks gestation of Z3A.21 and Evaluate anatomy not seen on prior sonogram Z36 [facility] [id number], [place] [id number] Nov, [facility] [address] [place] [id number] [id number] Oct, 17 weeks gestation of Z3A.17 and Second trimester Z34.92 [facility] [id number][place] [id number] Oct, [facility] [address] [place] [address] [id number] [place] [address] [id number] Sep, [facility] [address] [place] [id number] [id number] Sep, care, first in first trimester Z34.01 ; 13 weeks gestation of Z3A.13 ; Nausea and vomiting during O21.9 ; Other infective acute otitis externa of left ear H60.392 and heartbeat not heard O76 [facility] [address] [place] [address] [id number] [place] [address] [id number] August, Visit for TB skin test Z11.1 and Screening for tuberculosis Z11.1 [facility] [address] [place] [id number] [place] [address] [id number] August, [facility] [address] [address] [id number] [place] [address] [id number] August, [facility] [address] [place] [address] [id number] [place] [address] [id number] August, Normal , first Z34.00 ; 8 weeks gestation of Z3A.08 and Nausea and vomiting in O21.9 [facility] [address] [place] [id number] [place] [address] [id number] Jul, [facility] [address] [id number] [place] [address] [id number] Jul, Low back pain at multiple sites M54.5 ; Other specified related conditions, first trimester O26.891 and Constipation by delayed colonic transit K59.01 [facility] [id number][place] [id number] Jul, test-positive Z32.01 [facility] [id number] [place] [address] [id number] Jul, [facility] [address] [place] [id number] [id number] Apr, Anxiety F41.9 and Irritability and anger R45.4 [facility] [place] [address] [id number] Apr, Anxiety F41.9 [place] [id number] [place] [address] [id number] Mar, [address] [id number] Mar, Acute non-recurrent maxillary sinusitis J01.00 and Bronchitis J40 [address] [id number] Mar, CVA tenderness M54.9 ; Acute diffuse otitis externa of both ears H60.313 ; Non- intractable vomiting with nausea, unspecified vomiting type R11.2 ; Date of last menstrual period (LMP) unknown Z78.9 ; Anxiety F41.9 and Anhedonia R45.84 [place] [id number] [place] [address] [id number] Mar, [facility] [address] [address] Mar, Right upper quadrant abdominal pain R10.11 [place] [id number] [place] [address] [id number] Jan, Bronchitis J40 and Acute suppurative otitis media of left ear without spontaneous rupture of tympanic membrane, recurrence not specified H66.002 [place] [address] [place] [address] [id number] Sep, Insect bite, initial encounter W57.XXXA and Erythema L53.[address] [id number] May, Ear pain, right H92.01 [place] [address] [place] [address] [id number] Dec, Otitis externa 380.10 and Sore throat 462 [facility] [address] [id number] [place] [phone] Nov, Sports physical V70.3 ; Exercise counseling V65.41 and Dietary counseling V65.3 IMMUNIZATIONS Vaccine Route Administration Date Status TDAP (BOOSTRIX) IM Intramuscular Jan 25, 2017 Administered SOCIAL HISTORY Never Assessed REASON FOR VISIT OB f/u-[address] Byrd--Suhas, Continues with headaches & blurred vision PLAN OF CARE Activity Details Follow Up 2 Weeks Reason: VITAL SIGNS Height 67 in 2017-01-25 Weight 192.2 lbs 2017-01-25 Temperature 97.8 degrees Fahrenheit 2017-01-25 Heart Rate 76 bpm 2017-01-25 Respiratory Rate 20 2017-01-25 BMI 30.103 kg/m2 2017-01-25 Blood pressure systolic 140 mmHg 2017-01-25 Blood pressure diastolic 70 mmHg 2017-01-25 MEDICATIONS Medication Instructions Dosage Frequency Start Date End Date Duration Status Formula 28-0.8-235 MG Orally Once a day 1 capsule 24h Jul, 0 days Active RESULTS Name Result Date Reference Range UA OB DIP (IN HOUSE) 2017-01-25 Glucose neg Protein trace LDH 2017-01-25 LDH 160 119-226 URIC ACID, SERUM 2017-01-25 Uric Acid, Serum 3.7 2.5-7.1 URINE PROTEIN TO CREATININE RATIO 2017-01-25 Creatinine, Urine 144.6 Not Estab. Protein,Total,Urine 21.2 Not Estab. Protein/Creat Ratio 147 0-200 CBC 2017-01-25 WBC 9.6 3.4-10.8 RBC 4.21 3.77-5.28 Hemoglobin 11.7 11.1-15.9 Hematocrit 34.8 34.0-46.6 MCV 83 79-97 MCH 27.8 26.6-33.0 MCHC 33.6 31.5-35.7 RDW 13.6 12.3-15.4 Platelets 234 150-379 Neutrophils 77 Not Estab. Lymphs 13 Not Estab. Monocytes 8 Not Estab. Eos 2 Not Estab. Basos 0 Not Estab. Neutrophils (Absolute) 7.4 1.4-7.0 Lymphs (Absolute) 1.2 0.7-3.1 Monocytes(Absolute) 0.7 0.1-0.9 Eos (Absolute) 0.2 0.0-0.4 Baso (Absolute) 0.0 0.0-0.2 Immature Granulocytes 0 Not Estab. Immature Grans (Abs) 0.0 0.0-0.1 CMP 2017-01-25 Glucose, Serum 85 65-99 BUN 6 6-20 Creatinine, Serum 0.52 0.57-1.00 eGFR If NonAfricn Am 140 >59 eGFR If Africn Am 161 >59 BUN/Creatinine Ratio 12 9-23 Sodium, Serum 137 134-144 Potassium, Serum 3.7 3.5-5.2 Chloride, Serum 101 96-106 Carbon Dioxide, Total 22 18-29 Calcium, Serum 8.7 8.7-10.2 Protein, Total, Serum 5.9 6.0-8.5 Albumin, Serum 3.5 3.5-5.5 Globulin, Total 2.4 1.5-4.5 A/G Ratio 1.5 1.2-2.2 Bilirubin, Total 0.3 0.0-1.2 Alkaline Phosphatase, S 112 43-101 AST (SGOT) 13 0-40 ALT (SGPT) 11 0-32 PROCEDURES Procedure Date Ordered Result Body Site URINE-NO MICRO Jan 25, 2017 VENIPUNCT, ROUTINE* Jan 25, 2017 LAB NOT BILLED BY [employer] Jan 25, 2017 SINGLE IMMUNIZATION ADMIN Jan 25, 2017 TDAP (BOOSTRIX) Jan 25, 2017 INSTRUCTIONS MEDICATIONS ADMINISTERED No Known Medications MEDICAL (GENERAL) HISTORY Type Description Date Medical History Mononucleosis Medical History Hearing Loss Medical History Rh negative state in antepartum period, first trimester Surgical History section
--- OUTSIDE RECORDS SUMMARY | 2018-09-10 11:14 | XMS REPORT ---
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 Name Role Phone DASHAWN BAUER Unavailable PROBLEMS Type Condition ICD9-CM Code NJY65-BO Code Onset Dates Condition Status SNOMED Code Problem Reactive depression F32.9 Active 93155880 Problem Gastroesophageal reflux disease, esophagitis presence not specified K21.9 Active 211536058 Problem Constipation by delayed colonic transit K59.01 Active 10189129 Problem Anxiety F41.9 Active 07861037 Problem Chronic otitis externa of both ears, unspecified type H60.63 Active 75485327 Problem -induced hypertension in third trimester O13.3 Active 88180605 ALLERGIES No Information ENCOUNTERS Encounter Location Date Diagnosis [facility] [address] [id number] Jun, Nausea R11.0 ; CVA tenderness M54.9 ; Acute cystitis without hematuria N30.00 and RUQ pain R10.11 [facility] [address] [id number] Jun, Anxiety F41.9 and Reactive depression F32.9 [facility] [id number] [place] [address] [id number] Jun, [facility] [id number] [place] [address] [id number] May, [facility] [address] [address] Apr, [facility] [address] [id number] Apr, Nonintractable episodic headache, unspecified headache type R51 and Dehydration E86.0 [facility] [address] [place] [address] Apr, Other viral agents as the cause of diseases classified elsewhere B97.89 and Acute upper respiratory infection, unspecified J06.9 [place] [id number] [place] [address] Mar, care, first in third trimester Z34.03 ; - induced hypertension in third trimester O13.3 and 38 weeks gestation of Z3A.38 [address] [place] [id number] [place] [address] Feb, 37 weeks gestation of Z3A.37 and care, first in third trimester Z34.03 [place] [id number] [place] [address] [id number] Feb, 36 weeks gestation of Z3A.36 and care in third trimester Z34.[address] [address] Feb, -induced hypertension in third trimester O13.3 ; Gastroesophageal reflux disease, esophagitis presence not specified K21.9 and 35 weeks gestation of Z3A.35 [address] [id number] [place] [address] Feb, -induced hypertension in third trimester O13.3 ; Chronic otitis externa of both ears, unspecified type H60.63 and 34 weeks gestation of Z3A.34 [address] [place] [id number] [place] [phone] Jan, Patient is a currently breast-feeding mother Z39.1 [place] [id number] [place] [address] Jan, -induced hypertension in third trimester O13.3 and 32 weeks gestation of Z3A.32 [place] [id number] [place] [address] [id number] Jan, [place] [id number] [place] [address] Jan, 30 weeks gestation of Z3A.30 ; -induced hypertension in third trimester O13.3 and Encounter for immunization Z23 [facility] [id number] [place] [address] [id number] Jan, -induced hypertension in third trimester O13.3 [facility] [id number] [place] [address] [id number] Jan, [facility] [id number] [place] [address] [id number] Jan, [facility] [id number] [place] [address] [id number] Dec, 28 weeks gestation of Z3A.28 and -induced hypertension in third trimester O13.3 [facility] [id number] [place] [address] [id number] Dec, [facility] [address] [address] Dec, [facility] [id number] [place] [address] [id number] Dec, [facility] [id number] [place] [address] [id number] Dec, care, first in second trimester Z34.02 [facility] [id number] [place] [address] Dec, care, first in second trimester Z34.02 [facility] [id number] [id number] Dec, 25 weeks gestation of Z3A.25 [facility] [address] [id number] [address] Nov, [facility] [id number] [place] [address] [id number] Nov, 21 weeks gestation of Z3A.21 and Evaluate anatomy not seen on prior sonogram Z36 [facility] [id number] [id number] Nov, [facility] [id number] [place] [address] [id number] Oct, 17 weeks gestation of Z3A.17 and Second trimester Z34.92 [facility] [id number] [place] [address] [id number] Oct, [facility] [id number] [place] [address] [id number] Sep, [facility] [id number] [place] [address] [id number] Sep, care, first in first trimester Z34.01 ; 13 weeks gestation of Z3A.13 ; Nausea and vomiting during O21.9 ; Other infective acute otitis externa of left ear H60.392 and heartbeat not heard O76 [facility] [id number] [place] [address] [id number] August, Visit for TB skin test Z11.1 and Screening for tuberculosis Z11.1 [facility] [id number] [place] [address] [id number] August, [place] [id number] [place] [address] [id number] August, Normal , first Z34.00 ; 8 weeks gestation of Z3A.08 and Nausea and vomiting in O21.9 [facility] [id number] [place] [address] [id number] August, [facility] [id number] [place] [address] [id number] Jul, [place] [id number] [place] [address] [id number] Jul, Low back pain at multiple sites M54.5 ; Other specified related conditions, first trimester O26.891 and Constipation by delayed colonic transit K59.01 [facility] [id number] [place] [address] [id number] Jul, test-positive Z32.01 [facility] [id number] [place] [address] [id number] Jul, [facility] [id number] [place] [address] [id number] Apr, Anxiety F41.9 and Irritability and anger R45.4 [place] [id number] [place] [address] [id number] Apr, Anxiety F41.[address] [id number] Mar, [address] [id number] Mar, Acute non-recurrent maxillary sinusitis J01.00 and Bronchitis J40 [address] [id number] Mar, CVA tenderness M54.9 ; Acute diffuse otitis externa of both ears H60.313 ; Non- intractable vomiting with nausea, unspecified vomiting type R11.2 ; Date of last menstrual period (LMP) unknown Z78.9 ; Anxiety F41.9 and Anhedonia R45.[address] [id number] Mar, [facility] [address] [address] Mar, Right upper quadrant abdominal pain R10.[address] [id number] Jan, Bronchitis J40 and Acute suppurative otitis media of left ear without spontaneous rupture of tympanic membrane, recurrence not specified H66.002 [place] [id number] [place] [address] [id number] Sep, Insect bite, initial encounter W57.XXXA and Erythema L53.[address] [id number] May, Ear pain, right H92.[address] [id number] Dec, Otitis externa 380.10 and Sore throat 462 [facility] [address] [address] Nov, Sports physical V70.3 ; Exercise counseling V65.41 and Dietary counseling V65.3 IMMUNIZATIONS No Known Immunizations SOCIAL HISTORY Never Assessed REASON FOR VISIT Blood Pressure HollisKendrick PLAN OF CARE VITAL SIGNS Height 67 in 2017-01-03 Blood pressure systolic 122 mmHg 2017-01-03 Blood pressure diastolic 72 mmHg 2017-01-03 MEDICATIONS No Known Medications RESULTS No Results PROCEDURES No Known procedures INSTRUCTIONS MEDICATIONS ADMINISTERED No Known Medications MEDICAL (GENERAL) HISTORY Type Description Date Medical History Mononucleosis Medical History Hearing Loss Medical History Rh negative state in antepartum period, first trimester Surgical History section
--- OUTSIDE RECORDS SUMMARY | 2018-09-10 11:15 | XMS REPORT ---
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 Role Phone DIONASHLEY ELISEY Unavailable PROBLEMS Type Condition ICD9-CM Code SYL04-UF Code Onset Dates Condition Status SNOMED Code Problem Reactive depression F32.9 Active 45579938 Problem Gastroesophageal reflux disease, esophagitis presence not specified K21.9 Active 295981996 Problem Constipation by delayed colonic transit K59.01 Active 61873997 Problem Anxiety F41.9 Active 04421580 Problem Chronic otitis externa of both ears, unspecified type H60.63 Active 63800027 Problem -induced hypertension in third trimester O13.3 Active 63962050 ALLERGIES No Information ENCOUNTERS Encounter Location Date Diagnosis [address] [id number] Jun, Nausea R11.0 ; CVA tenderness M54.9 ; Acute cystitis without hematuria N30.00 and RUQ pain R10.[address] [id number] Jun, Anxiety F41.9 and Reactive depression F32.9 [place] [id number] [place] [address] [id number] Jun, [place] [id number] [place] [address] [id number] May, [facility] [address] [address] Apr, [address] [id number] Apr, Nonintractable episodic headache, unspecified headache type R51 and Dehydration E86.0 [facility] [address] [address] Apr, Other viral agents as the cause of diseases classified elsewhere B97.89 and Acute upper respiratory infection, unspecified J06.9 [place] [id number] [place] [address] Mar, care, first in third trimester Z34.03 ; - induced hypertension in third trimester O13.3 and 38 weeks gestation of Z3A.38 [place] [id number] [place] [address] Feb, 37 weeks gestation of Z3A.37 and care, first in third trimester Z34.03 [place] [id number] [place] [address] [id number] Feb, 36 weeks gestation of Z3A.36 and care in third trimester Z34.93 [place] [id number] [place] [phone] Feb, -induced hypertension in third trimester O13.3 ; Gastroesophageal reflux disease, esophagitis presence not specified K21.9 and 35 weeks gestation of Z3A.35 [place] [id number] [place] [phone] Feb, -induced hypertension in third trimester O13.3 ; Chronic otitis externa of both ears, unspecified type H60.63 and 34 weeks gestation of Z3A.34 [place] [id number] [place] [phone] Jan, Patient is a currently breast-feeding mother Z39.1 [place] [id number] [place] [phone] Jan, -induced hypertension in third trimester O13.3 and 32 weeks gestation of Z3A.32 [place] [id number] [place] [address] [id number] Jan, [place] [id number] [place] [phone] Jan, 30 weeks gestation of Z3A.30 ; -induced hypertension in third trimester O13.3 and Encounter for immunization Z23 [facility] [id number] [place] [address] [id number] Jan, -induced hypertension in third trimester O13.3 [facility] [id number] [place] [address] [id number] Jan, [facility] [id number] [place] [address] [id number] Jan, [facility] [id number] [place] [address] [id number] Dec, 28 weeks gestation of Z3A.28 and -induced hypertension in third trimester O13.3 [facility] [id number] [place] [address] [id number] Dec, [facility] [address] [place] [address] Dec, [place] [id number] [place] [address] [id number] Dec, [facility] [id number] [place] [address] [id number] Dec, care, first in second trimester Z34.02 [place] [id number] [place] [address] Dec, care, first in second trimester Z34.02 [facility] [address] [id number] Dec, 25 weeks gestation of Z3A.25 [facility] [address] [id number] [place] [address] Nov, [facility] 120 [facility] [id number] [id number] Nov, 21 weeks gestation of Z3A.21 and Evaluate anatomy not seen on prior sonogram Z36 [facility] [id number] [id number] Nov, [facility] [address] [id number] Oct, 17 weeks gestation of Z3A.17 and Second trimester Z34.92 [facility] [id number] [id number] Oct, [facility] [id number] [place] [address] [id number] Sep, [facility] [id number] [place] [address], [place] [phone] Sep, care, first in first trimester Z34.01 ; 13 weeks gestation of Z3A.13 ; Nausea and vomiting during O21.9 ; Other infective acute otitis externa of left ear H60.392 and heartbeat not heard O76 [facility] [id number] [place] [address] [id number] August, Visit for TB skin test Z11.1 and Screening for tuberculosis Z11.1 [facility] [id number] [place] [address] [id number] August, [facility] [id number] [place] [address] [id number] August, [facility] [id number] [place] [address] [id number] August, Normal , first Z34.00 ; 8 weeks gestation of Z3A.08 and Nausea and vomiting in O21.9 [facility] [id number] [place] [address] [id number] Jul, [facility] [id number] [place] [address] [id number] Jul, Low back pain at multiple sites M54.5 ; Other specified related conditions, first trimester O26.891 and Constipation by delayed colonic transit K59.01 [facility] [id number] [place] [address] [id number] Jul, test-positive Z32.01 [facility] [id number] [place] [address] [id number] Jul, [facility] [id number] [place] [address] [id number] Apr, Anxiety F41.9 and Irritability and anger R45.4 [facility] [id number] [place] [address] [id number] Apr, Anxiety F41.9 [place] [id number] [place] [address] [id number] Mar, [address] [id number] Mar, Acute non-recurrent maxillary sinusitis J01.00 and Bronchitis J40 [address] [id number] Mar, CVA tenderness M54.9 ; Acute diffuse otitis externa of both ears H60.313 ; Non- intractable vomiting with nausea, unspecified vomiting type R11.2 ; Date of last menstrual period (LMP) unknown Z78.9 ; Anxiety F41.9 and Anhedonia R45.[address] [id number] Mar, [facility] [address] [address] Mar, Right upper quadrant abdominal pain R10.[address] [id number] Jan, Bronchitis J40 and Acute suppurative otitis media of left ear without spontaneous rupture of tympanic membrane, recurrence not specified H66.002 [place] [id number] [place] [address] [id number] Sep, Insect bite, initial encounter W57.XXXA and Erythema L53.[address] [id number] May, Ear pain, right H92.[address] [id number] Dec, Otitis externa 380.10 and Sore throat 462 [facility] [address] [address] Nov, Sports physical V70.3 ; Exercise counseling V65.41 and Dietary counseling V65.3 IMMUNIZATIONS No Known Immunizations SOCIAL HISTORY Never Assessed REASON FOR VISIT triage - CBowmanRN PLAN OF CARE VITAL SIGNS MEDICATIONS No Known Medications RESULTS No Results PROCEDURES No Known procedures INSTRUCTIONS MEDICATIONS ADMINISTERED No Known Medications MEDICAL (GENERAL) HISTORY Type Description Date Medical History Mononucleosis Medical History Hearing Loss Medical History Rh negative state in antepartum period, first trimester Surgical History section
--- OUTSIDE RECORDS SUMMARY | 2018-09-10 11:15 | XMS REPORT ---
Author Author DASHAWN BAUER Organization [facility] Address [address] [place] [address] Care Team Providers Care Services Manager Name Role Phone DASHAWN BAUER Unavailable PROBLEMS Type Condition ICD9-CM Code [id number] Code Onset Dates Condition Status SNOMED Code Problem Mixed obsessional thoughts and acts F42.2 Active 73244368 Problem Current mild episode of major depressive disorder without prior episode F32.0 Active 04896884 Problem Chronic otitis externa of both ears, unspecified type H60.63 Active 03241379 Problem Anxiety F41.9 Active 86239374 Problem Reactive depression F32.9 Active 06799194 Problem Gastroesophageal reflux disease, esophagitis presence not specified K21.9 Active 598456551 ALLERGIES No Information ENCOUNTERS Encounter Location Date Diagnosis [facility] [id number] [place] [address] [id number] Oct, [facility] [address] [id number] Sep, [place] [id number] [place] [id number] Sep, [address] [id number] Sep, Sore throat J02.9 and Acute diffuse otitis externa of right ear H60.311 [facility] [id number] [place] [address] [id number] Sep, [address] [id number] Sep, Anxiety F41.9 ; Mixed obsessional thoughts and acts F42.2 and Current mild episode of major depressive disorder without prior episode F32.0 [place] [id number] [place] [address] [id number] August, Cough R05 ; Acute non-recurrent maxillary sinusitis J01.00 and Acute diffuse otitis externa of left ear H60.312 [place] [id number] [place] [address] [id number] Jun, Nausea R11.0 ; CVA tenderness M54.9 ; Acute cystitis without hematuria N30.00 and RUQ pain R10.[address] [id number] Jun, Anxiety F41.[address] [id number] Jun, [address] [id number] May, [address] [address] Apr, [place] [id number] [place] [address] [id number] Apr, Nonintractable episodic headache, unspecified headache type R51 and Dehydration E86.0 [facility] [address] [place] [address] Apr, Other viral agents as the cause of diseases classified elsewhere B97.89 and Acute upper respiratory infection, unspecified J06.[address] [address] Mar, care, first in third trimester Z34.03 ; - induced hypertension in third trimester O13.3 and 38 weeks gestation of Z3A.38 [place] [id number] [place] [phone] Feb, 37 weeks gestation of Z3A.37 and care, first in third trimester Z34.03 [place] [id number] [place] [address] [id number] Feb, 36 weeks gestation of Z3A.36 and care in third trimester Z34.[address] [address] Feb, -induced hypertension in third trimester O13.3 ; Gastroesophageal reflux disease, esophagitis presence not specified K21.9 and 35 weeks gestation of Z3A.35 [place] [id number] [place] [phone] Feb, -induced hypertension in third trimester O13.3 ; Chronic otitis externa of both ears, unspecified type H60.63 and 34 weeks gestation of Z3A.34 [place] [address] [address] Jan, Patient is a currently breast-feeding mother Z39.1 [place] [address] [address] Jan, -induced hypertension in third trimester O13.3 and 32 weeks gestation of Z3A.32 [place] [id number] [place] [address] [id number] Jan, [place] [address] [address] Jan, 30 weeks gestation of Z3A.30 ; -induced hypertension in third trimester O13.3 and Encounter for immunization Z23 [facility] [id number] [place] [address] [id number] Jan, -induced hypertension in third trimester O13.3 [facility] [id number] [place] [address] [id number] Jan, [facility] [address] [id number] Jan, [facility] [id number] [place] [address] [id number] Dec, 28 weeks gestation of Z3A.28 and -induced hypertension in third trimester O13.3 [facility] [id number] [place] [address] [id number] Dec, [place] [address] [place] [id number] [place] [id number] Dec, [facility] [address] [id number] Dec, [facility] [address] [id number] [id number] Dec, care, first in second trimester Z34.02 [facility] [address] [facility] [id number], [place] [address] Dec, care, first in second trimester Z34.02 [facility] [address] [id number] Dec, 25 weeks gestation of Z3A.25 [facility] [address] [id number] [place] [address] Nov, [facility] [address] [id number] Nov, 21 weeks gestation of Z3A.21 and Evaluate anatomy not seen on prior sonogram Z36 [address] [id number] Nov, [address] [place] [address] [id number] Oct, 17 weeks gestation of Z3A.17 and Second trimester Z34.92 [address] [id number] Oct, [place] [id number] [id number] Sep, [address] [id number] Sep, care, first in first trimester Z34.01 ; 13 weeks gestation of Z3A.13 ; Nausea and vomiting during O21.9 ; Other infective acute otitis externa of left ear H60.392 and heartbeat not heard O76 [address] [id number] August, Visit for TB skin test Z11.1 and Screening for tuberculosis Z11.1 [address] [id number] August, [place] [id number] [place] [address] [id number] August, [place] [id number] [place] [address] [id number] August, Normal , first Z34.00 ; 8 weeks gestation of Z3A.08 and Nausea and vomiting in O21.9 [place] [address] [place] [address] [id number] Jul, [address] [id number] Jul, Low back pain at multiple sites M54.5 ; Other specified related conditions, first trimester O26.891 and Constipation by delayed colonic transit K59.[address] [id number] Jul, test-positive Z32.[address] [id number] Jul, [address] [id number] Apr, Anxiety F41.9 and Irritability and anger R45.[address] [id number] Apr, Anxiety F41.9 [place] [address] [place] [address] [id number] Mar, [place] [address] [place] [address] [id number] Mar, Acute non-recurrent maxillary sinusitis J01.00 and Bronchitis J40 [place] [address] [place] [address] [id number] Mar, CVA tenderness M54.9 ; Acute diffuse otitis externa of both ears H60.313 ; Non- intractable vomiting with nausea, unspecified vomiting type R11.2 ; Date of last menstrual period (LMP) unknown Z78.9 ; Anxiety F41.9 and Anhedonia R45.84 [address] [place] [address] [id number] Mar, [facility] [id number] [place] [phone] Mar, Right upper quadrant abdominal pain R10.11 [address] [place] [address] [id number] Jan, Bronchitis J40 and Acute suppurative otitis media of left ear without spontaneous rupture of tympanic membrane, recurrence not specified H66.002 [address] [place] [address] [id number] Sep, Insect bite, initial encounter W57.XXXA and Erythema L53.9 [place] [id number] [place] [address] [id number] May, Ear pain, right H92.01 [address] [place] [address] [id number] Dec, Otitis externa 380.10 and Sore throat [address] [facility] [address] [facility] [id number], [place] [address] Nov, Sports physical V70.3 ; Exercise counseling V65.41 and Dietary counseling V65.3 IMMUNIZATIONS No Known Immunizations SOCIAL HISTORY Never Assessed REASON FOR VISIT breast feeding complications PLAN OF CARE VITAL SIGNS MEDICATIONS Unknown Medications RESULTS No Results PROCEDURES No Known procedures INSTRUCTIONS MEDICATIONS ADMINISTERED No Known Medications MEDICAL (GENERAL) HISTORY Type Description Date Medical History Mononucleosis Medical History Hearing Loss Medical History Rh negative state in antepartum period, first trimester Surgical History section Hospitalization History childbirth only
--- OUTSIDE RECORDS SUMMARY | 2018-09-10 11:15 | XMS REPORT ---
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 Name Role Phone DIONASHLEY ELISEY Unavailable PROBLEMS Type Condition ICD9-CM Code RDW44-LM Code Onset Dates Condition Status SNOMED Code Problem Reactive depression F32.9 Active 14827798 Problem Gastroesophageal reflux disease, esophagitis presence not specified K21.9 Active 859527253 Problem Constipation by delayed colonic transit K59.01 Active 62288035 Problem Anxiety F41.9 Active 93372276 Problem Chronic otitis externa of both ears, unspecified type H60.63 Active 54603926 Problem -induced hypertension in third trimester O13.3 Active 65422549 ALLERGIES No Information ENCOUNTERS Encounter Location Date Diagnosis [address] [id number] Jun, Nausea R11.0 ; CVA tenderness M54.9 ; Acute cystitis without hematuria N30.00 and RUQ pain R10.[address] [id number] Jun, Anxiety F41.9 and Reactive depression F32.9 [place] [id number] [place] [address] [id number] Jun, [place] [id number] [place] [address] [id number] May, [facility] [address] [address] Apr, [address] [id number] Apr, Nonintractable episodic headache, unspecified headache type R51 and Dehydration E86.0 [facility] [address] [address] Apr, Other viral agents as the cause of diseases classified elsewhere B97.89 and Acute upper respiratory infection, unspecified J06.9 [place] [address] [id number] [place] [address] Mar, care, first in third trimester Z34.03 ; - induced hypertension in third trimester O13.3 and 38 weeks gestation of Z3A.38 [place] [address] [id number] [place] [address] Feb, 37 weeks gestation of Z3A.37 and care, first in third trimester Z34.03 [place] [id number] [place] [address] [id number] Feb, 36 weeks gestation of Z3A.36 and care in third trimester Z34.93 [place] [id number] [place] [address] Feb, -induced hypertension in third trimester O13.3 ; Gastroesophageal reflux disease, esophagitis presence not specified K21.9 and 35 weeks gestation of Z3A.35 [place] [address] [id number] [place] [phone] Feb, -induced hypertension in third trimester O13.3 ; Chronic otitis externa of both ears, unspecified type H60.63 and 34 weeks gestation of Z3A.34 [place] [id number] [place] [address] Jan, Patient is a currently breast-feeding mother Z39.1 [place] [id number] [place] [phone] Jan, -induced hypertension in third trimester O13.3 and 32 weeks gestation of Z3A.32 [place] [id number] [place] [address] [id number] Jan, [place] [id number] [place] [phone] Jan, 30 weeks gestation of Z3A.30 ; -induced hypertension in third trimester O13.3 and Encounter for immunization Z23 [facility] [id number] [place] [address] [id number] Jan, -induced hypertension in third trimester O13.3 [facility] [id number] [place] [address] [id number] Jan, [facility] [id number] [place] [address] [id number] Jan, [facility] [id number] [place] [address] [id number] Dec, 28 weeks gestation of Z3A.28 and -induced hypertension in third trimester O13.3 [facility] [id number] [place] [address] [id number] Dec, [facility] [address] [place] [phone] Dec, [place] [id number] [place] [address] [id number] Dec, [facility] [id number] [place] [address] [id number] Dec, care, first in second trimester Z34.02 [place] [address] [id number] [place] [address] Dec, care, first in second trimester Z34.02 [facility] [address] [id number] Dec, 25 weeks gestation of Z3A.25 [facility] [address] [id number] [place] [address] Nov, [facility] [address] [facility] [id number][place] [id number] Nov, 21 weeks gestation of Z3A.21 and Evaluate anatomy not seen on prior sonogram Z36 [facility] [id number] [id number] Nov, [facility] [address] [id number] Oct, 17 weeks gestation of Z3A.17 and Second trimester Z34.92 [facility] [place] [id number] [id number] Oct, [facility] [id number] [place] [address] [id number] Sep, [facility] [id number] [place] [address] [id number] Sep, care, first in first trimester Z34.01 ; 13 weeks gestation of Z3A.13 ; Nausea and vomiting during O21.9 ; Other infective acute otitis externa of left ear H60.392 and heartbeat not heard O76 [facility] [id number] [place] [address] [id number] August, Visit for TB skin test Z11.1 and Screening for tuberculosis Z11.1 [facility] [place] [id number] [place] [address] [id number] August, [facility] [id number] [place] [address] [id number] August, Normal , first Z34.00 ; 8 weeks gestation of Z3A.08 and Nausea and vomiting in O21.9 [facility] [id number] [place] [address] [id number] August, [facility] [id number] [place] [address] [id number] Jul, [facility] [place] [id number] [place] [address] [id number] Jul, Low back pain at multiple sites M54.5 ; Other specified related conditions, first trimester O26.891 and Constipation by delayed colonic transit K59.01 [facility] [id number] [id number] Jul, test-positive Z32.01 [facility] [id number] [place] [address] [id number] Jul, [facility] [id number] [place] [address] [id number] Apr, Anxiety F41.9 and Irritability and anger R45.4 [facility] [place] [address] [id number] [place] [address] [id number] Apr, Anxiety F41.[address] [id number] Mar, [address] [id number] Mar, Acute non-recurrent maxillary sinusitis J01.00 and Bronchitis J40 [address] [id number] Mar, CVA tenderness M54.9 ; Acute diffuse otitis externa of both ears H60.313 ; Non- intractable vomiting with nausea, unspecified vomiting type R11.2 ; Date of last menstrual period (LMP) unknown Z78.9 ; Anxiety F41.9 and Anhedonia R45.[address] [id number] Mar, [facility] [address] [address] Mar, Right upper quadrant abdominal pain R10.[address] [id number] Jan, Bronchitis J40 and Acute suppurative otitis media of left ear without spontaneous rupture of tympanic membrane, recurrence not specified H66.002 [place] [id number] [place] [address] [id number] Sep, Insect bite, initial encounter W57.XXXA and Erythema L53.[address] [id number] May, Ear pain, right H92.[address] [id number] Dec, Otitis externa 380.10 and Sore throat [address] [facility] [address] [address] Nov, Sports physical V70.3 ; Exercise counseling V65.41 and Dietary counseling V65.3 IMMUNIZATIONS No Known Immunizations SOCIAL HISTORY Never Assessed REASON FOR VISIT Triage PLAN OF CARE VITAL SIGNS MEDICATIONS No Known Medications RESULTS No Results PROCEDURES No Known procedures INSTRUCTIONS MEDICATIONS ADMINISTERED No Known Medications MEDICAL (GENERAL) HISTORY Type Description Date Medical History Mononucleosis Medical History Hearing Loss Medical History Rh negative state in antepartum period, first trimester Surgical History section
--- OUTSIDE RECORDS SUMMARY | 2018-09-10 11:16 | XMS REPORT ---
Author Author DION SAMUEL [facility] Address [address] [place] [address] Care Team Providers Care Pet Groomer Name Role Phone ASHLEY ASHLEYY Unavailable PROBLEMS Type Condition ICD9-CM Code VQA74-GE Code Onset Dates Condition Status SNOMED Code Problem Reactive depression F32.9 Active 84642842 Problem Gastroesophageal reflux disease, esophagitis presence not specified K21.9 Active 053087171 Problem Constipation by delayed colonic transit K59.01 Active 05603822 Problem Anxiety F41.9 Active 09340003 Problem Chronic otitis externa of both ears, unspecified type H60.63 Active 89017137 Problem -induced hypertension in third trimester O13.3 Active 68672662 ALLERGIES No Information ENCOUNTERS Encounter Location Date Diagnosis [address] [id number] Jun, Nausea R11.0 ; CVA tenderness M54.9 ; Acute cystitis without hematuria N30.00 and RUQ pain R10.[address] [id number] Jun, Anxiety F41.9 and Reactive depression F32.9 [place] [id number] [place] [address] [id number] Jun, [place] [id number] [place] [address] [id number] May, [facility] [address] [address] Apr, [address] [id number] Apr, Nonintractable episodic headache, unspecified headache type R51 and Dehydration E86.0 [facility] [address] [address] Apr, Other viral agents as the cause of diseases classified elsewhere B97.89 and Acute upper respiratory infection, unspecified J06.9 [place] [address] [place] [id number] [place] [address] Mar, care, first in third trimester Z34.03 ; - induced hypertension in third trimester O13.3 and 38 weeks gestation of Z3A.38 [place] [address] [place] [id number] [place] [address] Feb, 37 weeks gestation of Z3A.37 and care, first in third trimester Z34.03 [place] [id number] [place] [address] [id number] Feb, 36 weeks gestation of Z3A.36 and care in third trimester Z34.93 [place] [address] [place] [id number] [place] [address] Feb, -induced hypertension in third trimester O13.3 ; Gastroesophageal reflux disease, esophagitis presence not specified K21.9 and 35 weeks gestation of Z3A.35 [place] [address] [place] [id number] [place] [phone] Feb, -induced hypertension in third trimester O13.3 ; Chronic otitis externa of both ears, unspecified type H60.63 and 34 weeks gestation of Z3A.34 [place] [address] [place] [id number] [place] [phone] Jan, Patient is a currently breast-feeding mother Z39.1 [place] [address] [place] [id number] [place] [phone] Jan, -induced hypertension in third trimester O13.3 and 32 weeks gestation of Z3A.32 [place] [id number] [place] [address] [id number] Jan, [place] [address] [place] [id number] [place] [phone] Jan, 30 weeks gestation of Z3A.30 ; -induced hypertension in third trimester O13.3 and Encounter for immunization Z23 [facility] [id number] [place] [address] [id number] Jan, -induced hypertension in third trimester O13.3 [facility] [id number] [place] [address] [id number] Jan, [facility] [id number] [place] [address] [id number] Jan, [facility] [id number] [place] [address] [id number] Dec, 28 weeks gestation of Z3A.28 and -induced hypertension in third trimester O13.3 [facility] [place] [id number] [place] [address] [id number] Dec, [facility] [address] [place] [phone] Dec, [place] [address] [address] [id number] [place] [address] [id number] Dec, [facility] [id number] [place] [address] [id number] Dec, care, first in second trimester Z34.02 [place] [address] [place] [id number] [place] [address] Dec, care, first in second trimester Z34.02 [facility] [address] [id number] Dec, 25 weeks gestation of Z3A.25 [facility] [address] [id number] [place] [address] Nov, [facility] 120 [facility] [id number] [id number] Nov, 21 weeks gestation of Z3A.21 and Evaluate anatomy not seen on prior sonogram Z36 [facility] [id number] [id number] Nov, [facility] [address] [id number] Oct, 17 weeks gestation of Z3A.17 and Second trimester Z34.92 [facility] [place] [id number] [id number] Oct, [facility] [place] [id number] [place] [address] [id number] Sep, [facility] [id number] [place] [address], [place] [phone] Sep, care, first in first trimester Z34.01 ; 13 weeks gestation of Z3A.13 ; Nausea and vomiting during O21.9 ; Other infective acute otitis externa of left ear H60.392 and heartbeat not heard O76 [facility] [id number] [place] [address] [id number] August, Visit for TB skin test Z11.1 and Screening for tuberculosis Z11.1 [facility] [id number] [place] [address] [id number] August, [facility] [id number] [place] [address] [id number] August, [facility] [place] [id number] [place] [address] [id number] August, Normal , first Z34.00 ; 8 weeks gestation of Z3A.08 and Nausea and vomiting in O21.9 [facility] [id number] [place] [address] [id number] Jul, [facility] [place] [address] [id number] [place] [address] [id number] Jul, Low back pain at multiple sites M54.5 ; Other specified related conditions, first trimester O26.891 and Constipation by delayed colonic transit K59.01 [facility] [id number] [place] [address] [id number] Jul, test-positive Z32.01 [facility] [id number] [place] [address] [id number] Jul, [facility] [id number] [place] [address] [id number] Apr, Anxiety F41.9 and Irritability and anger R45.4 [facility] [place] [address] [id number] [place] [address] [id number] Apr, Anxiety F41.9 [place] [id number] [place] [address] [id number] Mar, [address] [id number] Mar, Acute non-recurrent maxillary sinusitis J01.00 and Bronchitis J40 [address] [id number] Mar, CVA tenderness M54.9 ; Acute diffuse otitis externa of both ears H60.313 ; Non- intractable vomiting with nausea, unspecified vomiting type R11.2 ; Date of last menstrual period (LMP) unknown Z78.9 ; Anxiety F41.9 and Anhedonia R45.[address] [id number] Mar, [facility] [address] [address] Mar, Right upper quadrant abdominal pain R10.11 [place] [id number] [place] [address] [id number] Jan, Bronchitis J40 and Acute suppurative otitis media of left ear without spontaneous rupture of tympanic membrane, recurrence not specified H66.002 [place] [id number] [place] [address] [id number] Sep, Insect bite, initial encounter W57.XXXA and Erythema L53.[address] [id number] May, Ear pain, right H92.[address] [id number] Dec, Otitis externa 380.10 and Sore throat 462 [facility] [address] [address] Nov, Sports physical V70.3 ; Exercise counseling V65.41 and Dietary counseling V65.3 IMMUNIZATIONS Vaccine Route Administration Date Status RHOGAM FULL DOSE IM Intramuscular Jan 09, 2017 Administered SOCIAL HISTORY Never Assessed REASON FOR VISIT ob follow up Hollis GRAVES PLAN OF CARE Activity Details Follow Up 1 wk nurse visit BP/2 wk f/u Reason: VITAL SIGNS Height 67 in 2017-01-09 Weight 192.6 lbs 2017-01-09 BMI 30.165 kg/m2 2017-01-09 Blood pressure systolic 148 mmHg 2017-01-09 Blood pressure diastolic 62 mmHg 2017-01-09 MEDICATIONS No Known Medications RESULTS No Results PROCEDURES Procedure Date Ordered Result Body Site URINE-NO MICRO Jan 09, 2017 LAB NOT [facility]ED [facility] Jan 09, 2017 VENIPUNCT, ROUTINE* Jan 09, 2017 THER/PROPH/DIAG INJ, SC/IM Jan 09, 2017 RH IG, FULL-DOSE, IM Jan 09, 2017 INSTRUCTIONS MEDICATIONS ADMINISTERED No Known Medications MEDICAL (GENERAL) HISTORY Type Description Date Medical History Mononucleosis Medical History Hearing Loss Medical History Rh negative state in antepartum period, first trimester Surgical History section
--- OUTSIDE RECORDS SUMMARY | 2018-09-10 11:16 | XMS REPORT ---
Author Author DASHAWN BAUER Organization [facility] Address [address] [place] [address] Care Team Providers Care Marking Room Supervisor Name Role Phone DASHAWN BAUER Unavailable PROBLEMS Type Condition ICD9-CM Code TYL12-ZI Code Onset Dates Condition Status SNOMED Code Problem Mixed obsessional thoughts and acts F42.2 Active 36722438 Problem Current mild episode of major depressive disorder without prior episode F32.0 Active 21362246 Problem Chronic otitis externa of both ears, unspecified type H60.63 Active 14002679 Problem Anxiety F41.9 Active 44236034 Problem Reactive depression F32.9 Active 98881390 Problem Gastroesophageal reflux disease, esophagitis presence not specified K21.9 Active 663959629 ALLERGIES No Known Allergies ENCOUNTERS Encounter Location Date Diagnosis [facility] [id number] [place] [address] [id number] Oct, [place] [address] [id number] Sep, [place] [address] [place] [id number] [place] [address] [id number] Sep, [address] [id number] Sep, Sore throat J02.9 and Acute diffuse otitis externa of right ear H60.311 [facility] [id number] [place] [address] [id number] Sep, [address] [id number] Sep, Anxiety F41.9 ; Mixed obsessional thoughts and acts F42.2 and Current mild episode of major depressive disorder without prior episode F32.[address] [id number] August, Cough R05 ; Acute non-recurrent maxillary sinusitis J01.00 and Acute diffuse otitis externa of left ear H60.[address] [id number] Jun, Nausea R11.0 ; CVA tenderness M54.9 ; Acute cystitis without hematuria N30.00 and RUQ pain R10.[address] [id number] Jun, Anxiety F41.[address] [id number] Jun, [address] [id number] May, [address] [address] Apr, [address] [id number] Apr, Nonintractable episodic headache, unspecified headache type R51 and Dehydration E86.0 [facility] [address] [place] [address] Apr, Other viral agents as the cause of diseases classified elsewhere B97.89 and Acute upper respiratory infection, unspecified J06.[address] [address] Mar, care, first in third trimester Z34.03 ; - induced hypertension in third trimester O13.3 and 38 weeks gestation of Z3A.[address] [address] Feb, 37 weeks gestation of Z3A.37 and care, first in third trimester Z34.03 [place] [address] [place] [address] [id number] Feb, 36 weeks gestation of Z3A.36 and care in third trimester Z34.[address] [address] Feb, -induced hypertension in third trimester O13.3 ; Gastroesophageal reflux disease, esophagitis presence not specified K21.9 and 35 weeks gestation of Z3A.35 [place] [address] [place] [id number] [place] [address] Feb, -induced hypertension in third trimester O13.3 ; Chronic otitis externa of both ears, unspecified type H60.63 and 34 weeks gestation of Z3A.34 [place] [address] [address] Jan, Patient is a currently breast-feeding mother Z39.[address] [address] Jan, -induced hypertension in third trimester O13.3 and 32 weeks gestation of Z3A.32 [place] [id number] [place] [address] [id number] Jan, [place] [address] [address] Jan, 30 weeks gestation of Z3A.30 ; -induced hypertension in third trimester O13.3 and Encounter for immunization Z23 [place] [id number] [place] [address] [id number] Jan, -induced hypertension in third trimester O13.3 [address] [place] [address] [id number] Jan, [facility] [id number] [place] [address] [id number] Jan, [facility] [address] [id number] [place] [address] [id number] Dec, 28 weeks gestation of Z3A.28 and -induced hypertension in third trimester O13.3 [facility] [id number] [place] [address] [id number] Dec, [place] [address] [place] [address] Dec, [facility] [address] [place] [id number] [id number] Dec, [facility] [address] [place] [id number] [id number] Dec, care, first in second trimester Z34.02 [facility] [address] [facility] [id number] [address] Dec, care, first in second trimester Z34.02 [facility] [address] [place] [id number] [id number] Dec, 25 weeks gestation of Z3A.25 [facility] [address] [id number] [place] [address] Nov, [facility] [id number] [place]AY[place] [id number] Nov, 21 weeks gestation of Z3A.21 and Evaluate anatomy not seen on prior sonogram Z36 [address] [place] [address] [id number] Nov, [place] [id number] [place] [id number] Oct, 17 weeks gestation of Z3A.17 and Second trimester Z34.92 [facility] [id number] [place] [id number] Oct, [facility] [id number] [place]AY[place] [id number] Sep, [address] [id number] Sep, care, first in first trimester Z34.01 ; 13 weeks gestation of Z3A.13 ; Nausea and vomiting during O21.9 ; Other infective acute otitis externa of left ear H60.392 and heartbeat not heard O76 [address]65100[place] [id number] August, Visit for TB skin test Z11.1 and Screening for tuberculosis Z11.1 [facility] [address]005[address]100[place] [id number] August, [address] [place] [address] [id number] August, [place] [id number] [place] [address] [id number] August, Normal , first Z34.00 ; 8 weeks gestation of Z3A.08 and Nausea and vomiting in O21.9 [facility] [id number] [place] [id number] Jul, [address] [id number] Jul, Low back pain at multiple sites M54.5 ; Other specified related conditions, first trimester O26.891 and Constipation by delayed colonic transit K59.[address] [id number] Jul, test-positive Z32.[address] [id number] Jul, [place] [address] [place] [address] [id number] Apr, Anxiety F41.9 and Irritability and anger R45.4 [place] [address] [place] [address] [id number] Apr, Anxiety F41.9 [place] [address] [place] [address] [id number] Mar, [place] [address] [place] [address] [id number] Mar, Acute non-recurrent maxillary sinusitis J01.00 and Bronchitis J40 [place] [address] [place] [address] [id number] Mar, CVA tenderness M54.9 ; Acute diffuse otitis externa of both ears H60.313 ; Non- intractable vomiting with nausea, unspecified vomiting type R11.2 ; Date of last menstrual period (LMP) unknown Z78.9 ; Anxiety F41.9 and Anhedonia R45.[address] [place] [address] [id number] Mar, [facility] [address] [id number], [place] [address] Mar, Right upper quadrant abdominal pain R10.11 [address] [place] [address] [id number] Jan, Bronchitis J40 and Acute suppurative otitis media of left ear without spontaneous rupture of tympanic membrane, recurrence not specified H66.[address] [place] [address] [id number] Sep, Insect bite, initial encounter W57.XXXA and Erythema L53.9 [place] [address] [place] [address] [id number] May, Ear pain, right H92.01 [place] [address] [place] [address] [id number] Dec, Otitis externa 380.10 and Sore throat 462 [facility] [address], [place] [address] Nov, Sports physical V70.3 ; Exercise counseling V65.41 and Dietary counseling V65.3 IMMUNIZATIONS No Known Immunizations SOCIAL HISTORY Never Assessed REASON FOR VISIT Headache that is causing her to have vision blurry Hollis RN PLAN OF CARE Activity Details Follow Up prn Reason: VITAL SIGNS Height 67 in 2017-04-27 Weight 180.8 lbs 2017-04-27 Temperature 98.7 degrees Fahrenheit 2017-04-27 Heart Rate 84 bpm 2017-04-27 Respiratory Rate 18 2017-04-27 BMI 28.31 kg/m2 2017-04-27 Blood pressure systolic 124 mmHg 2017-04-27 Blood pressure diastolic 64 mmHg 2017-04-27 MEDICATIONS Medication Instructions Dosage Frequency Start Date End Date Duration Status 28-0.8 MG Active RESULTS No Results PROCEDURES No Known procedures INSTRUCTIONS MEDICATIONS ADMINISTERED No Known Medications MEDICAL (GENERAL) HISTORY Type Description Date Medical History Mononucleosis Medical History Hearing Loss Medical History Rh negative state in antepartum period, first trimester Surgical History section Hospitalization History childbirth only
--- OUTSIDE RECORDS SUMMARY | 2018-09-10 11:16 | XMS REPORT ---
Author Author GEOVANNA LUCIANO Organization [facility] Address [address] [place] [address] Care Team Providers Care Recreation Teacher Name Role Phone GEOVANNA LUCIANO Unavailable PROBLEMS Type Condition ICD9-CM Code [id number] Code Onset Dates Condition Status SNOMED Code Problem Reactive depression F32.9 Active 25701432 Problem Gastroesophageal reflux disease, esophagitis presence not specified K21.9 Active 450013949 Problem Constipation by delayed colonic transit K59.01 Active 77696988 Problem Anxiety F41.9 Active 54439182 Problem Chronic otitis externa of both ears, unspecified type H60.63 Active 31442425 Problem -induced hypertension in third trimester O13.3 Active 00334040 ALLERGIES No Known Allergies ENCOUNTERS Encounter Location Date Diagnosis [address] [id number] August, Cough R05 ; Acute non-recurrent maxillary sinusitis J01.00 and Acute diffuse otitis externa of left ear H60.[address] [id number] Jun, Nausea R11.0 ; CVA tenderness M54.9 ; Acute cystitis without hematuria N30.00 and RUQ pain R10.11 [place] [id number] [place] [address] [id number] Jun, Anxiety F41.[address] [id number] Jun, [address] [id number] May, [facility] [id number] [place] [address] Apr, [address] [id number] Apr, Nonintractable episodic headache, unspecified headache type R51 and Dehydration E86.0 [facility] [address] [place] [phone] Apr, Other viral agents as the cause of diseases classified elsewhere B97.89 and Acute upper respiratory infection, unspecified J06.9 [place] [id number] [place] [address] Mar, care, first in third trimester Z34.03 ; - induced hypertension in third trimester O13.3 and 38 weeks gestation of Z3A.38 [place] [id number] [place] [phone] Feb, 37 weeks gestation of Z3A.37 and care, first in third trimester Z34.03 [place] [id number] [place] [address] [id number] Feb, 36 weeks gestation of Z3A.36 and care in third trimester Z34.93 [place] [id number] [place] [phone] Feb, -induced hypertension in third trimester O13.3 ; Gastroesophageal reflux disease, esophagitis presence not specified K21.9 and 35 weeks gestation of Z3A.35 [place] [id number] [place] [phone] Feb, -induced hypertension in third trimester O13.3 ; Chronic otitis externa of both ears, unspecified type H60.63 and 34 weeks gestation of Z3A.34 [place] [address] [place] [phone] Jan, Patient is a currently breast-feeding mother Z39.1 [place] [id number] [place] [phone] Jan, -induced hypertension in third trimester O13.3 and 32 weeks gestation of Z3A.32 [address] [id number] [place] [address] [id number] Jan, [facility] [address] [address] Jan, 30 weeks gestation of Z3A.30 ; -induced hypertension in third trimester O13.3 and Encounter for immunization Z23 [facility] [id number] [place] [id number] Jan, -induced hypertension in third trimester O13.3 [facility] [id number] [place] [address] [id number] Jan, [facility] [id number] [place] [address] [id number] Jan, [facility] [id number] [place] [address] [phone] Dec, 28 weeks gestation of Z3A.28 and -induced hypertension in third trimester O13.3 [facility] [id number] [place] [address] [phone] Dec, [place] [address] [address] Dec, [facility] [id number] [place] [address] [id number] Dec, [facility] [id number] [place] [address] [id number] Dec, care, first in second trimester Z34.02 [place] [address] [address] Dec, care, first in second trimester Z34.02 [facility] [address] [id number] [place] [phone] Dec, 25 weeks gestation of Z3A.25 [facility] [address] [id number] [address] Nov, [facility] [id number] [place] [id number] Nov, 21 weeks gestation of Z3A.21 and Evaluate anatomy not seen on prior sonogram Z36 [facility] [id number] [place] [phone] Nov, [facility] [id number] [place] [phone] Oct, 17 weeks gestation of Z3A.17 and Second trimester Z34.92 [facility] [place] [id number] [place] [id number] Oct, [facility] [place] [id number] [place] [phone] Sep, [facility] [id number] [place] [address] [id number] Sep, care, first in first trimester Z34.01 ; 13 weeks gestation of Z3A.13 ; Nausea and vomiting during O21.9 ; Other infective acute otitis externa of left ear H60.392 and heartbeat not heard O76 [facility] [id number] [place] [phone] August, Screening for tuberculosis Z11.1 and Visit for TB skin test Z11.1 [facility] [id number] [place] [phone] August, [facility] [id number] [place] [address] [id number] August, [facility] [id number] [place] [address] [phone] August, Normal , first Z34.00 ; 8 weeks gestation of Z3A.08 and Nausea and vomiting in O21.9 [facility] [place] [id number] [place] [id number] Jul, [facility] [id number] [place] [phone] Jul, Low back pain at multiple sites M54.5 ; Other specified related conditions, first trimester O26.891 and Constipation by delayed colonic transit K59.01 [facility] [id number] [place] [id number] Jul, test-positive Z32.01 [facility] [id number] [place] [phone] Jul, [place] [id number] [place] [address] [id number] Apr, Anxiety F41.9 and Irritability and anger R45.[address] [id number] Apr, Anxiety F41.[address] [id number] Mar, [address] [id number] Mar, Acute non-recurrent maxillary sinusitis J01.00 and Bronchitis J40 [address] [id number] Mar, CVA tenderness M54.9 ; Acute diffuse otitis externa of both ears H60.313 ; Non- intractable vomiting with nausea, unspecified vomiting type R11.2 ; Date of last menstrual period (LMP) unknown Z78.9 ; Anxiety F41.9 and Anhedonia R45.[address] [id number] Mar, [facility] [address] [address] Mar, Right upper quadrant abdominal pain R10.[address] [id number] Jan, Bronchitis J40 and Acute suppurative otitis media of left ear without spontaneous rupture of tympanic membrane, recurrence not specified H66.002 [place] [id number] [place] [address] [id number] Sep, Insect bite, initial encounter W57.XXXA and Erythema L53.[address] [id number] May, Ear pain, right H92.[address] [id number] Dec, Otitis externa 380.10 and Sore throat 462 [facility] [address] [address] Nov, Sports physical V70.3 ; Exercise counseling V65.41 and Dietary counseling V65.3 IMMUNIZATIONS No Known Immunizations SOCIAL HISTORY Never Assessed REASON FOR VISIT congestion Pt here for congestion ELLIE Eaton PLAN OF CARE Activity Details Follow Up prn Reason: VITAL SIGNS Height 67 in 2017-04-17 Weight 175.6 lbs 2017-04-17 Temperature 99.3 degrees Fahrenheit 2017-04-17 Heart Rate 90 bpm 2017-04-17 Respiratory Rate 16 2017-04-17 BMI 27.50 kg/m2 2017-04-17 Blood pressure systolic 124 mmHg 2017-04-17 Blood pressure diastolic 78 mmHg 2017-04-17 MEDICATIONS Medication Instructions Dosage Frequency Start Date End Date Duration Status Ranitidine HCl 150 MG Orally Once a day 1 capsule at bedtime 24h Feb, 30 day(s) Active Benadryl Allergy 25 MG Orally every 8 hrs 1 tablet as needed 8h Active Tussin 100 MG/5ML Orally every 4 hrs 10 ml as needed 4h Not-Taking RESULTS No Results PROCEDURES No Known procedures INSTRUCTIONS MEDICATIONS ADMINISTERED No Known Medications MEDICAL (GENERAL) HISTORY Type Description Date Medical History Mononucleosis Medical History Hearing Loss Medical History Rh negative state in antepartum period, first trimester Surgical History section
--- OUTSIDE RECORDS SUMMARY | 2018-09-10 11:16 | XMS REPORT ---
Author Author DION SAMUEL [facility] Address [address] [place] [address] Care Team Providers Care Food Concession Manager Name Role Phone DIONASHLEY ELISEY Unavailable PROBLEMS Type Condition ICD9-CM Code [id number] Code Onset Dates Condition Status SNOMED Code Problem Reactive depression F32.9 Active 25905824 Problem Gastroesophageal reflux disease, esophagitis presence not specified K21.9 Active 281051986 Problem Constipation by delayed colonic transit K59.01 Active 62444258 Problem Anxiety F41.9 Active 94920445 Problem Chronic otitis externa of both ears, unspecified type H60.63 Active 21863763 Problem -induced hypertension in third trimester O13.3 Active 22599766 ALLERGIES No Information ENCOUNTERS Encounter Location Date Diagnosis [address] [id number] Jun, Nausea R11.0 ; CVA tenderness M54.9 ; Acute cystitis without hematuria N30.00 and RUQ pain R10.[address] [id number] Jun, Anxiety F41.9 and Reactive depression F32.9 [place] [id number] [place] [address] [id number] Jun, [place] [id number] [place] [address] [id number] May, [facility] [address] [address] Apr, [address] [id number] Apr, Nonintractable episodic headache, unspecified headache type R51 and Dehydration E86.0 [facility] [address] [address] Apr, Other viral agents as the cause of diseases classified elsewhere B97.89 and Acute upper respiratory infection, unspecified J06.9 [place] [id number] [place] [address] Mar, care, first in third trimester Z34.03 ; - induced hypertension in third trimester O13.3 and 38 weeks gestation of Z3A.38 [place] [id number] [place] [address] Feb, 37 weeks gestation of Z3A.37 and care, first in third trimester Z34.03 [place] [id number] [place] [address] [id number] Feb, 36 weeks gestation of Z3A.36 and care in third trimester Z34.93 [place] [address] [place] [id number] [place] [address] Feb, -induced hypertension in third trimester O13.3 ; Gastroesophageal reflux disease, esophagitis presence not specified K21.9 and 35 weeks gestation of Z3A.35 [place] [id number] [place] [address] Feb, -induced hypertension in third trimester O13.3 ; Chronic otitis externa of both ears, unspecified type H60.63 and 34 weeks gestation of Z3A.34 [place] [id number] [place] [address] Jan, Patient is a currently breast-feeding mother Z39.1 [place] [id number] [place] [phone] Jan, -induced hypertension in third trimester O13.3 and 32 weeks gestation of Z3A.32 [place] [id number] [place] [address] [id number] Jan, [place] [id number] [place] [address] Jan, 30 weeks gestation of Z3A.30 ; -induced hypertension in third trimester O13.3 and Encounter for immunization Z23 [facility] [id number] [place] [address] [id number] Jan, -induced hypertension in third trimester O13.3 [facility] [place] [id number] [place] [address] [id number] Jan, [facility] [place] [id number] [place] [address] [phone] Jan, [facility] [id number] [place] [address] [id number] Dec, 28 weeks gestation of Z3A.28 and -induced hypertension in third trimester O13.3 [facility] [place] [id number] [place] [address] [id number] Dec, [facility] [address] [place] [address] Dec, [place] [id number] [place] [address] [id number] Dec, [facility] [id number] [place] [address] [id number] Dec, care, first in second trimester Z34.02 [place] [address] [place] [id number] [place] [address] Dec, care, first in second trimester Z34.02 [facility] [address], [place] [id number] Dec, 25 weeks gestation of Z3A.25 [facility] [address] [id number] [place] [address] Nov, [facility] 120 [facility] [id number] [id number] Nov, 21 weeks gestation of Z3A.21 and Evaluate anatomy not seen on prior sonogram Z36 [facility] [id number], [place] [phone] Nov, [facility] [address] [id number] Oct, 17 weeks gestation of Z3A.17 and Second trimester Z34.92 [facility] [place] [id number], [place] [id number] Oct, [facility] [place] [id number] [place] [address] [phone] Sep, [facility] [place] [id number] [place] [address] [id number] Sep, care, first in first trimester Z34.01 ; 13 weeks gestation of Z3A.13 ; Nausea and vomiting during O21.9 ; Other infective acute otitis externa of left ear H60.392 and heartbeat not heard O76 [facility] [place] [id number] [place] [address] [id number] August, Visit for TB skin test Z11.1 and Screening for tuberculosis Z11.1 [facility] [place] [id number] [place] [address] [id number] August, [facility] [place] [id number] [place] [address] [id number] August, Normal , first Z34.00 ; 8 weeks gestation of Z3A.08 and Nausea and vomiting in O21.9 [facility] [place] [id number] [place] [address] [id number] August, [facility] [place] [id number] [place] [address] [id number] Jul, [facility] [place] [id number] [place] [address] [id number] Jul, Low back pain at multiple sites M54.5 ; Other specified related conditions, first trimester O26.891 and Constipation by delayed colonic transit K59.01 [facility] [place] [id number], [place] [id number] Jul, test-positive Z32.01 [facility] [place] [id number] [place] [address] [id number] Jul, [facility] [place] [id number] [place] [address] [id number] Apr, Anxiety F41.9 and Irritability and anger R45.4 [facility] [place] [id number] [place] [address] [id number] Apr, Anxiety F41.9 [place] [id number] [place] [address] [id number] Mar, [address] [id number] Mar, Acute non-recurrent maxillary sinusitis J01.00 and Bronchitis J40 [address] [id number] Mar, CVA tenderness M54.9 ; Acute diffuse otitis externa of both ears H60.313 ; Non- intractable vomiting with nausea, unspecified vomiting type R11.2 ; Date of last menstrual period (LMP) unknown Z78.9 ; Anxiety F41.9 and Anhedonia R45.[address] [id number] Mar, [facility] [address] [address] Mar, Right upper quadrant abdominal pain R10.[address] [id number] Jan, Bronchitis J40 and Acute suppurative otitis media of left ear without spontaneous rupture of tympanic membrane, recurrence not specified H66.002 [place] [id number] [place] [address] [id number] Sep, Insect bite, initial encounter W57.XXXA and Erythema L53.[address] [id number] May, Ear pain, right H92.[address] [id number] Dec, Otitis externa 380.10 and Sore throat 462 [facility] [address] [address] Nov, Sports physical V70.3 ; Exercise counseling V65.41 and Dietary counseling V65.3 IMMUNIZATIONS No Known Immunizations SOCIAL HISTORY Never Assessed REASON FOR VISIT Lab Hollis [facility] PLAN OF CARE VITAL SIGNS MEDICATIONS No Known Medications RESULTS Name Result Date Reference Range UA OB DIP (IN HOUSE) 2017-01-02 Glucose neg Protein trace PROCEDURES Procedure Date Ordered Result Body Site URINE-NO MICRO Jan 02, 2017 INSTRUCTIONS MEDICATIONS ADMINISTERED No Known Medications MEDICAL (GENERAL) HISTORY Type Description Date Medical History Mononucleosis Medical History Hearing Loss Medical History Rh negative state in antepartum period, first trimester Surgical History section
--- OUTSIDE RECORDS SUMMARY | 2018-09-10 11:16 | XMS REPORT ---
Author Author DION SAMUEL [facility] Address [address] [place] [address] Care Team Providers Care Student Admissions Clerk Name Role Phone DIONCATALINA ELISEHANY Unavailable PROBLEMS Type Condition ICD9-CM Code CIA51-RR Code Onset Dates Condition Status SNOMED Code Problem Reactive depression F32.9 Active 99505210 Problem Gastroesophageal reflux disease, esophagitis presence not specified K21.9 Active 915687734 Problem Constipation by delayed colonic transit K59.01 Active 17309318 Problem Anxiety F41.9 Active 81607437 Problem Chronic otitis externa of both ears, unspecified type H60.63 Active 75463407 Problem -induced hypertension in third trimester O13.3 Active 43295825 ALLERGIES No Information ENCOUNTERS Encounter Location Date Diagnosis [address] [id number] August, Cough R05 ; Acute non-recurrent maxillary sinusitis J01.00 and Acute diffuse otitis externa of left ear H60.312 [place] [id number] [place] [address] [id number] Jun, Nausea R11.0 ; CVA tenderness M54.9 ; Acute cystitis without hematuria N30.00 and RUQ pain R10.11 [place] [id number] [place] [address] [id number] Jun, Anxiety F41.9 and Reactive depression F32.9 [place] [id number] [place] [address] [id number] Jun, [place] [id number] [place] [address] [id number] May, [facility] [address] [place] [phone] Apr, [place] [id number] [place] [address] [id number] Apr, Nonintractable episodic headache, unspecified headache type R51 and Dehydration E86.0 [facility] [address] [place] [phone] Apr, Other viral agents as the cause of diseases classified elsewhere B97.89 and Acute upper respiratory infection, unspecified J06.9 [place] [address] [place] [id number] [place] [phone] Mar, care, first in third trimester Z34.03 ; - induced hypertension in third trimester O13.3 and 38 weeks gestation of Z3A.38 [place] [id number] [place] [address] Feb, 37 weeks gestation of Z3A.37 and care, first in third trimester Z34.[address] [place] [address] [id number] Feb, 36 weeks gestation of Z3A.36 and care in third trimester Z34.93 [facility] [id number] [place] [phone] Feb, -induced hypertension in third trimester O13.3 ; Gastroesophageal reflux disease, esophagitis presence not specified K21.9 and 35 weeks gestation of Z3A.35 [facility] [address] [place] [phone] Feb, -induced hypertension in third trimester O13.3 ; Chronic otitis externa of both ears, unspecified type H60.63 and 34 weeks gestation of Z3A.34 [facility] [address] [place] [phone] Jan, Patient is a currently breast-feeding mother Z39.1 [facility] [address] [id number] [place] [phone] Jan, -induced hypertension in third trimester O13.3 and 32 weeks gestation of Z3A.32 [place] [id number] [id number] Jan, [facility] [id number] [place] [phone] Jan, 30 weeks gestation of Z3A.30 ; -induced hypertension in third trimester O13.3 and Encounter for immunization Z23 [facility] [id number] [id number] Jan, -induced hypertension in third trimester O13.3 [facility] [id number], [place] [id number] Jan, [facility] [id number][place] [phone] Jan, [facility] [id number] [place] [address] [id number] Dec, 28 weeks gestation of Z3A.28 and -induced hypertension in third trimester O13.3 [facility] [address] [id number] [id number] Dec, [facility] [address] [address] Dec, [facility] [id number], [place] [id number] Dec, [facility] [address] [id number] [phone] Dec, care, first in second trimester Z34.02 [place] [address] [address] Dec, care, first in second trimester Z34.02 [facility] [address] [place] [address] [id number] [id number] Dec, 25 weeks gestation of Z3A.25 [facility] [address] [id number] [address] Nov, [facility] [address] [id number] [id number] Nov, 21 weeks gestation of Z3A.21 and Evaluate anatomy not seen on prior sonogram Z36 [facility] [address] [id number] [id number] Nov, [facility] [address] [id number][place] [id number] Oct, 17 weeks gestation of Z3A.17 and Second trimester Z34.92 [facility] [address] [id number][place] [id number] Oct, [facility] [address] [id number][place] [phone] Sep, [facility] [address] [id number] [place] [phone] Sep, care, first in first trimester Z34.01 ; 13 weeks gestation of Z3A.13 ; Nausea and vomiting during O21.9 ; Other infective acute otitis externa of left ear H60.392 and heartbeat not heard O76 [facility] [id number], [place] [id number] August, Visit for TB skin test Z11.1 and Screening for tuberculosis Z11.1 [facility] [id number], [place] [id number] August, [facility] [id number], [place] [id number] August, Normal , first Z34.00 ; 8 weeks gestation of Z3A.08 and Nausea and vomiting in O21.9 [facility] [address] [id number][place] [id number] August, [facility] [id number], [place] [id number] Jul, [facility] [id number], [place] [id number] Jul, Low back pain at multiple sites M54.5 ; Other specified related conditions, first trimester O26.891 and Constipation by delayed colonic transit K59.01 [facility] [address] [id number], [place] [id number] Jul, test-positive Z32.01 [facility] [id number], [place] [id number] Jul, [address] [place] [address] [id number] Apr, Anxiety F41.9 and Irritability and anger R45.4 [place] [id number] [place] [address] [id number] Apr, Anxiety F41.[address] [id number] Mar, [address] [id number] Mar, Acute non-recurrent maxillary sinusitis J01.00 and Bronchitis J40 [address] [id number] Mar, CVA tenderness M54.9 ; Acute diffuse otitis externa of both ears H60.313 ; Non- intractable vomiting with nausea, unspecified vomiting type R11.2 ; Date of last menstrual period (LMP) unknown Z78.9 ; Anxiety F41.9 and Anhedonia R45.84 [place] [id number] [place] [address] [id number] Mar, [facility] [address] [address] Mar, Right upper quadrant abdominal pain R10.[address] [id number] Jan, Bronchitis J40 and Acute suppurative otitis media of left ear without spontaneous rupture of tympanic membrane, recurrence not specified H66.002 [place] [id number] [place] [address] [id number] Sep, Insect bite, initial encounter W57.XXXA and Erythema L53.[address] [id number] May, Ear pain, right H92.[address] [id number] Dec, Otitis externa 380.10 and Sore throat 462 [facility] [address] [address] Nov, Sports physical V70.3 ; Exercise counseling V65.41 and Dietary counseling V65.3 IMMUNIZATIONS No Known Immunizations SOCIAL HISTORY Never Assessed REASON FOR VISIT Breast pump rx PLAN OF CARE VITAL SIGNS MEDICATIONS Medication Instructions Dosage Frequency Start Date End Date Duration Status Breast Pump - as directed Jan, Active RESULTS No Results PROCEDURES No Known procedures INSTRUCTIONS MEDICATIONS ADMINISTERED No Known Medications MEDICAL (GENERAL) HISTORY Type Description Date Medical History Mononucleosis Medical History Hearing Loss Medical History Rh negative state in antepartum period, first trimester Surgical History section
--- OUTSIDE RECORDS SUMMARY | 2018-09-10 11:17 | XMS REPORT ---
Author Author SAMUEL ASHLEY [facility] Address [address] [place] [address] Care Team Providers Care Production Floater Name Role Phone DIONCATALINA ELISEHANY Unavailable PROBLEMS Type Condition ICD9-CM Code MRB55-GV Code Onset Dates Condition Status SNOMED Code Problem Reactive depression F32.9 Active 70189655 Problem Gastroesophageal reflux disease, esophagitis presence not specified K21.9 Active 332244701 Problem Constipation by delayed colonic transit K59.01 Active 16532563 Problem Anxiety F41.9 Active 10786546 Problem Chronic otitis externa of both ears, unspecified type H60.63 Active 07986646 Problem -induced hypertension in third trimester O13.3 Active 09031206 ALLERGIES No Known Allergies ENCOUNTERS Encounter Location Date Diagnosis [address] [id number] August, Cough R05 ; Acute non-recurrent maxillary sinusitis J01.00 and Acute diffuse otitis externa of left ear H60.312 [place] [id number] [place] [address] [id number] Jun, Nausea R11.0 ; CVA tenderness M54.9 ; Acute cystitis without hematuria N30.00 and RUQ pain R10.11 [place] [address] [place] [address] [id number] Jun, Anxiety F41.9 and Reactive depression F32.9 [place] [id number] [place] [address] [id number] Jun, [place] [address] [place] [address] [id number] May, [facility] [address] [place] [phone] Apr, [address] [id number] Apr, Nonintractable episodic headache, unspecified headache type R51 and Dehydration E86.0 [facility] [id number] [place] [phone] Apr, Other viral agents as the cause of diseases classified elsewhere B97.89 and Acute upper respiratory infection, unspecified J06.9 [place] [id number] [place] [address] Mar, care, first in third trimester Z34.03 ; - induced hypertension in third trimester O13.3 and 38 weeks gestation of Z3A.38 [place] [id number] [place] [phone] Feb, 37 weeks gestation of Z3A.37 and care, first in third trimester Z34.03 [address] [place] [address] [id number] Feb, 36 weeks gestation of Z3A.36 and care in third trimester Z34.93 [facility] [address] [place] [id number] [place] [phone] Feb, -induced hypertension in third trimester O13.3 ; Gastroesophageal reflux disease, esophagitis presence not specified K21.9 and 35 weeks gestation of Z3A.[address] [place] [address] Feb, -induced hypertension in third trimester O13.3 ; Chronic otitis externa of both ears, unspecified type H60.63 and 34 weeks gestation of Z3A.34 [facility] [address] [place] [phone] Jan, Patient is a currently breast-feeding mother Z39.1 [place] [address] [id number] [place] [phone] Jan, -induced hypertension in third trimester O13.3 and 32 weeks gestation of Z3A.32 [address] [phone] Jan, [facility] [id number] [place] [phone] Jan, 30 weeks gestation of Z3A.30 ; -induced hypertension in third trimester O13.3 and Encounter for immunization Z23 [facility] [id number][place] [id number] Jan, -induced hypertension in third trimester O13.3 [facility] [place] [address] [place] [address] [id number] [id number] Jan, [facility] [place] [id number] [place] [address] [id number] Jan, [facility] [id number] [place] [address] [id number] Dec, 28 weeks gestation of Z3A.28 and -induced hypertension in third trimester O13.3 [facility] [id number] [place] [address] [id number] Dec, [place] [address]65100[place], [place] [address] Dec, [facility] [id number] [place] [address] [id number] Dec, [facility] [id number] [place] [address] [id number] Dec, care, first in second trimester Z34.02 [place] [address]65100[place], [place] [address] Dec, care, first in second trimester Z34.02 [facility] [address] [address] [id number][place] [id number] Dec, 25 weeks gestation of Z3A.[address] [facility] [address] [id number] [address] Nov, [facility] [id number], [place] [id number] Nov, 21 weeks gestation of Z3A.21 and Evaluate anatomy not seen on prior sonogram Z36 [facility] [address] [id number][place] [id number] Nov, [facility] [address] [id number][place] [id number] Oct, 17 weeks gestation of Z3A.17 and Second trimester Z34.92 [facility] [address] [id number][place] [id number] Oct, [facility] [id number] [place] [address] [id number] Sep, [facility] [address] [id number] [place] [phone] Sep, care, first in first trimester Z34.01 ; 13 weeks gestation of Z3A.13 ; Nausea and vomiting during O21.9 ; Other infective acute otitis externa of left ear H60.392 and heartbeat not heard O76 [facility] [id number], [place] [id number] August, Visit for TB skin test Z11.1 and Screening for tuberculosis Z11.1 [facility] [id number], [place] [id number] August, [facility] [id number] [place] [address] [id number] August, [facility] [id number], [place] [id number] August, Normal , first Z34.00 ; 8 weeks gestation of Z3A.08 and Nausea and vomiting in O21.9 [facility] [address] [id number], [place] [id number] Jul, [facility] [id number], [place] [id number] Jul, Low back pain at multiple sites M54.5 ; Other specified related conditions, first trimester O26.891 and Constipation by delayed colonic transit K59.01 [facility] [address] [id number], [place] [id number] Jul, test-positive Z32.01 [facility] [id number], [place] [id number] Jul, [address] [place] [address] [id number] Apr, Anxiety F41.9 and Irritability and anger R45.4 [place] [address] [place] [address] [id number] Apr, Anxiety F41.[address] [id number] Mar, [address] [id number] Mar, Acute non-recurrent maxillary sinusitis J01.00 and Bronchitis J40 [address] [id number] Mar, CVA tenderness M54.9 ; Acute diffuse otitis externa of both ears H60.313 ; Non- intractable vomiting with nausea, unspecified vomiting type R11.2 ; Date of last menstrual period (LMP) unknown Z78.9 ; Anxiety F41.9 and Anhedonia R45.84 [place] [id number] [place] [address] [id number] Mar, [facility] [address] [address] Mar, Right upper quadrant abdominal pain R10.[address] [id number] Jan, Bronchitis J40 and Acute suppurative otitis media of left ear without spontaneous rupture of tympanic membrane, recurrence not specified H66.002 [place] [address] [place] [address] [id number] Sep, Insect bite, initial encounter W57.XXXA and Erythema L53.[address] [id number] May, Ear pain, right H92.[address] [id number] Dec, Otitis externa 380.10 and Sore throat 462 [facility] [address] [address] Nov, Sports physical V70.3 ; Exercise counseling V65.41 and Dietary counseling V65.3 IMMUNIZATIONS No Known Immunizations SOCIAL HISTORY Never Assessed REASON FOR VISIT OB f/u - 2 weeks--tcuppettRN PLAN OF CARE Activity Details Follow Up 2 Weeks, 2 Weeks, 2 Weeks, 2 Weeks Reason: VITAL SIGNS Height 67 in 2017-02-08 Weight 195.2 lbs 2017-02-08 Temperature 98.2 degrees Fahrenheit 2017-02-08 Heart Rate 76 bpm 2017-02-08 Respiratory Rate 20 2017-02-08 BMI 30.573 kg/m2 2017-02-08 Blood pressure systolic 130 mmHg 2017-02-08 Blood pressure diastolic 72 mmHg 2017-02-08 MEDICATIONS Medication Instructions Dosage Frequency Start Date End Date Duration Status Formula 28-0.8-235 MG Orally Once a day 1 capsule 24h Jul, 0 days Active RESULTS Name Result Date Reference Range UA OB DIP (IN HOUSE) 2017-02-08 Glucose negative Protein trace CMP 2017-02-08 Glucose, Serum 86 65-99 BUN 6 6-20 Creatinine, Serum 0.42 0.57-1.00 eGFR If NonAfricn Am 150 >59 eGFR If Africn Am 173 >59 BUN/Creatinine Ratio 14 9-23 Sodium, Serum 137 134-144 Potassium, Serum 3.9 3.5-5.2 Chloride, Serum 99 96-106 Carbon Dioxide, Total 22 18-29 Calcium, Serum 8.6 8.7-10.2 Protein, Total, Serum 6.4 6.0-8.5 Albumin, Serum 3.5 3.5-5.5 Globulin, Total 2.9 1.5-4.5 A/G Ratio 1.2 1.2-2.2 Bilirubin, Total 0.3 0.0-1.2 Alkaline Phosphatase, S 122 43-101 AST (SGOT) 8 0-40 ALT (SGPT) 11 0-32 LDH 2017-02-08 LDH 162 119-226 URIC ACID, SERUM 2017-02-08 Uric Acid, Serum 3.2 2.5-7.1 CBC 2017-02-08 WBC 10.6 3.4-10.8 RBC 4.04 3.77-5.28 Hemoglobin 11.5 11.1-15.9 Hematocrit 33.5 34.0-46.6 MCV 83 79-97 MCH 28.5 26.6-33.0 MCHC 34.3 31.5-35.7 RDW 13.4 12.3-15.4 Platelets 229 150-379 Neutrophils 75 Not Estab. Lymphs 15 Not Estab. Monocytes 8 Not Estab. Eos 1 Not Estab. Basos 0 Not Estab. Neutrophils (Absolute) 8.0 1.4-7.0 Lymphs (Absolute) 1.6 0.7-3.1 Monocytes(Absolute) 0.9 0.1-0.9 Eos (Absolute) 0.1 0.0-0.4 Baso (Absolute) 0.0 0.0-0.2 Immature Granulocytes 1 Not Estab. Immature Grans (Abs) 0.1 0.0-0.1 Ultrasound : OB, Follow-up 2017-02-19 Biophysical Profile () w/ NST 2017-03-26 PROCEDURES Procedure Date Ordered Result Body Site URINE-NO MICRO Feb 08, 2017 VENIPUNCT, ROUTINE* Feb 08, 2017 INSTRUCTIONS MEDICATIONS ADMINISTERED No Known Medications MEDICAL (GENERAL) HISTORY Type Description Date Medical History Mononucleosis Medical History Hearing Loss Medical History Rh negative state in antepartum period, first trimester Surgical History section
--- OUTSIDE RECORDS SUMMARY | 2018-09-10 11:17 | XMS REPORT ---
Author Author SAMUEL ASHLEY [facility] Address [address] [place] [address] Care Team Providers Care Mortar Carrier Name Role Phone DIONCATALINA ELISEHANY Unavailable PROBLEMS Type Condition ICD9-CM Code [id number] Code Onset Dates Condition Status SNOMED Code Problem Reactive depression F32.9 Active 64030119 Problem Gastroesophageal reflux disease, esophagitis presence not specified K21.9 Active 071135034 Problem Constipation by delayed colonic transit K59.01 Active 17685135 Problem Anxiety F41.9 Active 29373614 Problem Chronic otitis externa of both ears, unspecified type H60.63 Active 90349413 Problem -induced hypertension in third trimester O13.3 Active 81298660 ALLERGIES No Known Allergies ENCOUNTERS Encounter Location Date Diagnosis [address] [id number] August, Cough R05 ; Acute non-recurrent maxillary sinusitis J01.00 and Acute diffuse otitis externa of left ear H60.312 [place] [id number] [place] [address] [id number] Jun, Nausea R11.0 ; CVA tenderness M54.9 ; Acute cystitis without hematuria N30.00 and RUQ pain R10.11 [place] [id number] [place] [address] [id number] Jun, Anxiety F41.9 and Reactive depression F32.9 [place] [id number] [place] [address] [id number] Jun, [place] [id number] [place] [address] [id number] May, [facility] [address] [place] [address] Apr, [address] [id number] Apr, Nonintractable episodic headache, unspecified headache type R51 and Dehydration E86.0 [facility] [id number] [place] [address] Apr, Other viral agents as the cause of diseases classified elsewhere B97.89 and Acute upper respiratory infection, unspecified J06.9 [place] [id number] [place] [address] Mar, care, first in third trimester Z34.03 ; - induced hypertension in third trimester O13.3 and 38 weeks gestation of Z3A.38 [place] [id number] [place] [address] Feb, 37 weeks gestation of Z3A.37 and care, first in third trimester Z34.[address] [place] [address] [id number] Feb, 36 weeks gestation of Z3A.36 and care in third trimester Z34.93 [facility] [address] [place] [id number] [place] [address] Feb, -induced hypertension in third trimester O13.3 ; Gastroesophageal reflux disease, esophagitis presence not specified K21.9 and 35 weeks gestation of Z3A.[address] [place] [address] Feb, -induced hypertension in third trimester O13.3 ; Chronic otitis externa of both ears, unspecified type H60.63 and 34 weeks gestation of Z3A.34 [facility] [address] [place] [address] Jan, Patient is a currently breast-feeding mother Z39.1 [place] [id number] [place] [address] Jan, -induced hypertension in third trimester O13.3 and 32 weeks gestation of Z3A.32 [address] [id number] Jan, [facility] [id number] [place] [address] Jan, 30 weeks gestation of Z3A.30 ; -induced hypertension in third trimester O13.3 and Encounter for immunization Z23 [facility] [id number] [id number] Jan, -induced hypertension in third trimester O13.3 [facility] [address] [id number] [id number] Jan, [facility] [id number] [place] [address] [id number] Jan, [facility] [id number] [place] [address] [id number] Dec, 28 weeks gestation of Z3A.28 and -induced hypertension in third trimester O13.3 [facility] [id number] [place] [address] [id number] Dec, [place] [address] [address] Dec, [facility] [id number] [place] [address] [id number] Dec, [facility] [id number] [place] [address] [id number] Dec, care, first in second trimester Z34.02 [place] [address] [address] Dec, care, first in second trimester Z34.02 [facility] [address] [place] [address] [id number] [id number] Dec, 25 weeks gestation of Z3A.25 [facility] [address] [id number] [place] [address] Nov, [facility] [id number] [id number] Nov, 21 weeks gestation of Z3A.21 and Evaluate anatomy not seen on prior sonogram Z36 [facility] [address] [id number] [id number] Nov, [facility] [address] [id number] [id number] Oct, 17 weeks gestation of Z3A.17 and Second trimester Z34.92 [facility] [address] [id number] [id number] Oct, [facility] [id number] [place] [address] [id number] Sep, [facility] [address] [id number] [id number] Sep, care, first in first trimester Z34.01 ; 13 weeks gestation of Z3A.13 ; Nausea and vomiting during O21.9 ; Other infective acute otitis externa of left ear H60.392 and heartbeat not heard O76 [facility] [id number] [id number] August, Visit for TB skin test Z11.1 and Screening for tuberculosis Z11.1 [facility] [id number][place] [id number] August, [facility] [address] [id number] [place] [address] [id number] August, [facility] [id number][place] [id number] August, Normal , first Z34.00 ; 8 weeks gestation of Z3A.08 and Nausea and vomiting in O21.9 [facility] [address] [id number] [id number] Jul, [facility] [id number], [place] [id number] Jul, Low back pain at multiple sites M54.5 ; Other specified related conditions, first trimester O26.891 and Constipation by delayed colonic transit K59.01 [facility] [address] [id number] [id number] Jul, test-positive Z32.01 [facility] [id number], [place] [id number] Jul, [address] [place] [address] [id number] Apr, Anxiety F41.9 and Irritability and anger R45.4 [place] [id number] [place] [address] [id number] Apr, Anxiety F41.[address] [id number] Mar, [address] [id number] Mar, Acute non-recurrent maxillary sinusitis J01.00 and Bronchitis J40 [address] [id number] Mar, CVA tenderness M54.9 ; Acute diffuse otitis externa of both ears H60.313 ; Non- intractable vomiting with nausea, unspecified vomiting type R11.2 ; Date of last menstrual period (LMP) unknown Z78.9 ; Anxiety F41.9 and Anhedonia R45.84 [place] [id number] [place] [address] [id number] Mar, [facility] [address] [address] Mar, Right upper quadrant abdominal pain R10.[address] [id number] Jan, Bronchitis J40 and Acute suppurative otitis media of left ear without spontaneous rupture of tympanic membrane, recurrence not specified H66.002 [place] [id number] [place] [address] [id number] Sep, Insect bite, initial encounter W57.XXXA and Erythema L53.[address] [id number] May, Ear pain, right H92.[address] [id number] Dec, Otitis externa 380.10 and Sore throat 462 [facility] [address] [address] Nov, Sports physical V70.3 ; Exercise counseling V65.41 and Dietary counseling V65.3 IMMUNIZATIONS No Known Immunizations SOCIAL HISTORY Never Assessed REASON FOR VISIT OB f/u - 1 week--tcuppettRN PLAN OF CARE VITAL SIGNS Height 67 in 2017-03-23 Weight 202.2 lbs 2017-03-23 Temperature 98.2 degrees Fahrenheit 2017-03-23 Heart Rate 80 bpm 2017-03-23 Respiratory Rate 16 2017-03-23 BMI 31.669 kg/m2 2017-03-23 Blood pressure systolic 142 mmHg 2017-03-23 Blood pressure diastolic 94 mmHg 2017-03-23 MEDICATIONS Medication Instructions Dosage Frequency Start Date End Date Duration Status Benadryl Allergy 25 MG Orally every 8 hrs 1 tablet as needed 8h Active Ranitidine HCl 150 MG Orally Once a day 1 capsule at bedtime 24h Feb, 30 day(s) Active Tussin 100 MG/5ML Orally every 4 hrs 10 ml as needed 4h Not-Taking RESULTS No Results PROCEDURES Procedure Date Ordered Result Body Site URINE-NO MICRO Mar 23, 2017 LAB NOT BILLED BY [facility] Mar 23, 2017 VENIPUNCT, ROUTINE* Mar 23, 2017 INSTRUCTIONS MEDICATIONS ADMINISTERED No Known Medications MEDICAL (GENERAL) HISTORY Type Description Date Medical History Mononucleosis Medical History Hearing Loss Medical History Rh negative state in antepartum period, first trimester Surgical History section
--- OUTSIDE RECORDS SUMMARY | 2018-09-10 11:17 | XMS REPORT ---
Author Author DION SAMUEL [facility] Address [address] [place] [address] Care Team Providers Care J2Ee Programmer Name Role Phone DIONASHLEY ELISEY Unavailable PROBLEMS Type Condition ICD9-CM Code MCI29-NQ Code Onset Dates Condition Status SNOMED Code Problem Reactive depression F32.9 Active 54770305 Problem Gastroesophageal reflux disease, esophagitis presence not specified K21.9 Active 809257303 Problem Constipation by delayed colonic transit K59.01 Active 15428310 Problem Anxiety F41.9 Active 98066731 Problem Chronic otitis externa of both ears, unspecified type H60.63 Active 60209118 Problem -induced hypertension in third trimester O13.3 Active 38883930 ALLERGIES No Information ENCOUNTERS Encounter Location Date Diagnosis [address] [id number] Jun, Nausea R11.0 ; CVA tenderness M54.9 ; Acute cystitis without hematuria N30.00 and RUQ pain R10.[address] [id number] Jun, Anxiety F41.9 and Reactive depression F32.9 [place] [id number] [place] [address] [id number] Jun, [place] [id number] [place] [address] [id number] May, [facility] [place] [address] [address] Apr, [address] [id number] Apr, Nonintractable episodic headache, unspecified headache type R51 and Dehydration E86.0 [facility] [address] [address] Apr, Other viral agents as the cause of diseases classified elsewhere B97.89 and Acute upper respiratory infection, unspecified J06.9 [place] [id number] [place] [address] Mar, care, first in third trimester Z34.03 ; - induced hypertension in third trimester O13.3 and 38 weeks gestation of Z3A.38 [place] [address] [place] [id number] [place] [address] Feb, 37 weeks gestation of Z3A.37 and care, first in third trimester Z34.03 [place] [id number] [place] [address] [id number] Feb, 36 weeks gestation of Z3A.36 and care in third trimester Z34.93 [place] [address] [place] [id number] [place] [address] Feb, -induced hypertension in third trimester O13.3 ; Gastroesophageal reflux disease, esophagitis presence not specified K21.9 and 35 weeks gestation of Z3A.35 [place] [address] [place] [id number] [place] [address] Feb, -induced hypertension in third trimester O13.3 ; Chronic otitis externa of both ears, unspecified type H60.63 and 34 weeks gestation of Z3A.34 [place] [address] [place] [address] [id number] [place] [address] Jan, Patient is a currently breast-feeding mother Z39.1 [place] [address] [place] [address] [id number] [place] [address] Jan, -induced hypertension in third trimester O13.3 and 32 weeks gestation of Z3A.32 [place] [id number] [place] [address] [id number] Jan, [place] [address] [place] [address] [id number] [place] [address] Jan, 30 weeks gestation of Z3A.30 ; -induced hypertension in third trimester O13.3 and Encounter for immunization Z23 [facility] [place] [id number] [place] [address] [id number] Jan, -induced hypertension in third trimester O13.3 [facility] [place] [id number] [place] [address] [id number] Jan, [facility] [place] [id number] [place] [address] [id number] Jan, [facility] [id number] [place] [address] [id number] Dec, 28 weeks gestation of Z3A.28 and -induced hypertension in third trimester O13.3 [facility] [place] [id number] [place] [address] [id number] Dec, [facility] [place] [address] [place] [phone] Dec, [place] [address] [id number] [place] [address] [id number] Dec, [facility] [id number] [place] [address] [id number] Dec, care, first in second trimester Z34.02 [place] [address] [place] [id number] [place] [phone] Dec, care, first in second trimester Z34.02 [facility] [address] [id number] Dec, 25 weeks gestation of Z3A.25 [facility] [address] [id number] [place] [address] Nov, [facility] [address] [facility] [id number] [place] [id number] Nov, 21 weeks gestation of Z3A.21 and Evaluate anatomy not seen on prior sonogram Z36 [facility] [id number] [place] [id number] Nov, [facility] [address] [place] [id number] Oct, 17 weeks gestation of Z3A.17 and Second trimester Z34.92 [facility] [id number] [place] [id number] Oct, [facility] [id number] [place] [address] [id number] Sep, [facility] [id number] [place] [address], [place] [id number] Sep, care, first in first trimester Z34.01 ; 13 weeks gestation of Z3A.13 ; Nausea and vomiting during O21.9 ; Other infective acute otitis externa of left ear H60.392 and heartbeat not heard O76 [facility] [id number] [place] [address] [id number] August, Visit for TB skin test Z11.1 and Screening for tuberculosis Z11.1 [facility] [id number] [place] [address] [id number] August, [facility] [id number] [place] [address] [id number] August, [facility] [place] [address] [place] [address] [id number] August, Normal , first Z34.00 ; 8 weeks gestation of Z3A.08 and Nausea and vomiting in O21.9 [facility] [id number] [place] [address] [id number] Jul, [facility] [place] [id number] [place] [address] [id number] Jul, Low back pain at multiple sites M54.5 ; Other specified related conditions, first trimester O26.891 and Constipation by delayed colonic transit K59.01 [facility] [id number] [place] [address] [id number] Jul, test-positive Z32.01 [facility] [id number] [place] [address] [id number] Jul, [facility] [id number] [place] [address] [id number] Apr, Anxiety F41.9 and Irritability and anger R45.4 [facility] [id number] [place] [address] [id number] Apr, Anxiety F41.9 [place] [address] [place] [address] [id number] Mar, [address] [id number] Mar, Acute non-recurrent maxillary sinusitis J01.00 and Bronchitis J40 [address] [id number] Mar, CVA tenderness M54.9 ; Acute diffuse otitis externa of both ears H60.313 ; Non- intractable vomiting with nausea, unspecified vomiting type R11.2 ; Date of last menstrual period (LMP) unknown Z78.9 ; Anxiety F41.9 and Anhedonia R45.[address] [id number] Mar, [facility] [address] [address] Mar, Right upper quadrant abdominal pain R10.[address] [id number] Jan, Bronchitis J40 and Acute suppurative otitis media of left ear without spontaneous rupture of tympanic membrane, recurrence not specified H66.002 [place] [address] [place] [address] [id number] Sep, Insect bite, initial encounter W57.XXXA and Erythema L53.[address] [id number] May, Ear pain, right H92.[address] [id number] Dec, Otitis externa 380.10 and Sore throat 462 [facility] [place] [address] [address] Nov, Sports physical V70.3 ; Exercise counseling V65.41 and Dietary counseling V65.3 IMMUNIZATIONS No Known Immunizations SOCIAL HISTORY Never Assessed REASON FOR VISIT PLAN OF CARE VITAL SIGNS MEDICATIONS No Known Medications RESULTS No Results PROCEDURES No Known procedures INSTRUCTIONS MEDICATIONS ADMINISTERED No Known Medications MEDICAL (GENERAL) HISTORY Type Description Date Medical History Mononucleosis Medical History Hearing Loss Medical History Rh negative state in antepartum period, first trimester Surgical History section
--- OUTSIDE RECORDS SUMMARY | 2018-09-10 11:17 | XMS REPORT ---
Author Author DION SAMUEL Organization [facility] Address [address] [place] [address] Care Team Providers Care Supervisor Quality Control Name Role Phone DIONCATALINA ELISEHANY Unavailable PROBLEMS Type Condition ICD9-CM Code [id number] Code Onset Dates Condition Status SNOMED Code Problem Mixed obsessional thoughts and acts F42.2 Active 52066941 Problem Current mild episode of major depressive disorder without prior episode F32.0 Active 73891312 Problem Chronic otitis externa of both ears, unspecified type H60.63 Active 22602548 Problem Anxiety F41.9 Active 72061915 Problem Reactive depression F32.9 Active 74300257 Problem Gastroesophageal reflux disease, esophagitis presence not specified K21.9 Active 604336762 ALLERGIES No Information ENCOUNTERS Encounter Location Date Diagnosis [place] [id number] [place] [id number] Oct, [address] [id number] Sep, Anxiety F41.9 ; Mixed obsessional thoughts and acts F42.2 and Current mild episode of major depressive disorder without prior episode F32.[address] [place] [address] [id number] August, Cough R05 ; Acute non-recurrent maxillary sinusitis J01.00 and Acute diffuse otitis externa of left ear H60.312 [place] [id number] [place] [address] [id number] Jun, Nausea R11.0 ; CVA tenderness M54.9 ; Acute cystitis without hematuria N30.00 and RUQ pain R10.11 [address] [id number] [place] [address] [id number] Jun, Anxiety F41.[address] [id number] Jun, [facility] [address] [id number] [id number] May, [place] [id number] [place] [address] Apr, [facility] [address] [id number] [id number] Apr, Nonintractable episodic headache, unspecified headache type R51 and Dehydration E86.0 [facility] [address] [place] [address] Apr, Other viral agents as the cause of diseases classified elsewhere B97.89 and Acute upper respiratory infection, unspecified J06.9 [place] [id number] [place] [address] Mar, care, first in third trimester Z34.03 ; - induced hypertension in third trimester O13.3 and 38 weeks gestation of Z3A.38 [place] [id number] [place] [phone] 30 Feb, 2017 37 weeks gestation of Z3A.37 and care, first in third trimester Z34.03 [address] [place] [address] [id number] Feb, 36 weeks gestation of Z3A.36 and care in third trimester Z34.93 [place] [id number] [place] [address] 16 Feb, 2017 -induced hypertension in third trimester O13.3 ; Gastroesophageal reflux disease, esophagitis presence not specified K21.9 and 35 weeks gestation of Z3A.35 [place] [id number] [place] [phone] 10 Feb, 2017 -induced hypertension in third trimester O13.3 ; Chronic otitis externa of both ears, unspecified type H60.63 and 34 weeks gestation of Z3A.34 [place] [id number] [place] [phone] Jan, Patient is a currently breast-feeding mother Z39.1 [facility] [id number] [place] [phone] Jan, -induced hypertension in third trimester O13.3 and 32 weeks gestation of Z3A.32 [facility] [id number] [place] [address] [id number] Jan, [place] [address] [address] Jan, 30 weeks gestation of Z3A.30 ; -induced hypertension in third trimester O13.3 and Encounter for immunization Z23 [facility] [id number] [place] [address] [id number] Jan, -induced hypertension in third trimester O13.3 [facility] [id number] [place] [address] [id number] Jan, [facility] [id number] [place] [address] [id number] Jan, [facility] [id number] [place] [address] [id number] Dec, 28 weeks gestation of Z3A.28 and -induced hypertension in third trimester O13.3 [facility] [id number] [place] [address], [place] [phone] Dec, [place] [address] [place] [phone] Dec, [facility] [id number] [place] [address] [id number] Dec, [facility] [id number] [place] [address] [id number] Dec, care, first in second trimester Z34.02 [place] [address] [id number] [place] [address] Dec, care, first in second trimester Z34.02 [facility] [id number] [place] [address] [id number] Dec, 25 weeks gestation of Z3A.[address] [facility] [address] [id number] [place] [address] Nov, [facility] [id number] [id number] Nov, 21 weeks gestation of Z3A.21 and Evaluate anatomy not seen on prior sonogram Z36 [facility] [id number] [id number] Nov, [facility] [id number] [place] [address] [id number] Oct, 17 weeks gestation of Z3A.17 and Second trimester Z34.92 [facility] [id number] [place] [address] [id number] Oct, [facility] [id number] [place] [address] [id number] Sep, [facility] [id number] [id number] Sep, care, first in first trimester Z34.01 ; 13 weeks gestation of Z3A.13 ; Nausea and vomiting during O21.9 ; Other infective acute otitis externa of left ear H60.392 and heartbeat not heard O76 [facility] [id number] [id number] August, Visit for TB skin test Z11.1 and Screening for tuberculosis Z11.1 [facility] [id number], [place] [id number] August, [facility] [id number] [id number] August, [facility] [id number], [place] [id number] August, Normal , first Z34.00 ; 8 weeks gestation of Z3A.08 and Nausea and vomiting in O21.9 [facility] [id number], [place] [id number] Jul, [facility] [id number], [place] [id number] Jul, Low back pain at multiple sites M54.5 ; Other specified related conditions, first trimester O26.891 and Constipation by delayed colonic transit K59.[address] [id number] Jul, test-positive Z32.[address] [id number] Jul, [address] [id number] Apr, Anxiety F41.9 and Irritability and anger R45.[address] [id number] Apr, Anxiety F41.[address] [id number] Mar, [address] [id number] Mar, Acute non-recurrent maxillary sinusitis J01.00 and Bronchitis J40 [address] [id number] Mar, CVA tenderness M54.9 ; Acute diffuse otitis externa of both ears H60.313 ; Non- intractable vomiting with nausea, unspecified vomiting type R11.2 ; Date of last menstrual period (LMP) unknown Z78.9 ; Anxiety F41.9 and Anhedonia R45.84 [address] [id number] [place] [address] [id number] Mar, [facility] [id number] [place] [address] Mar, Right upper quadrant abdominal pain R10.[address] [id number] Jan, Bronchitis J40 and Acute suppurative otitis media of left ear without spontaneous rupture of tympanic membrane, recurrence not specified H66.002 [address] [id number] [place] [address] [id number] Sep, Insect bite, initial encounter W57.XXXA and Erythema L53.[address] [id number] May, Ear pain, right H92.01 [facility] [address] [id number] [place] [id number] Dec, Otitis externa 380.10 and Sore throat 462 [facility] [address] [facility] [id number] [place] [address] Nov, Sports physical V70.3 ; Exercise counseling V65.41 and Dietary counseling V65.3 IMMUNIZATIONS No Known Immunizations SOCIAL HISTORY Never Assessed REASON FOR VISIT visit PLAN OF CARE VITAL SIGNS MEDICATIONS Unknown Medications RESULTS No Results PROCEDURES No Known procedures INSTRUCTIONS MEDICATIONS ADMINISTERED No Known Medications MEDICAL (GENERAL) HISTORY Type Description Date Medical History Mononucleosis Medical History Hearing Loss Medical History Rh negative state in antepartum period, first trimester Surgical History section Hospitalization History childbirth only
--- OUTSIDE RECORDS SUMMARY | 2018-09-10 11:18 | XMS REPORT ---
Author Author DION SAMUEL [facility] Address [address] [place] [address] Care Team Providers Care Legal Referee Name Role Phone DIONASHLEY ELISEY Unavailable PROBLEMS Type Condition ICD9-CM Code GUT70-PQ Code Onset Dates Condition Status SNOMED Code Problem Reactive depression F32.9 Active 36269442 Problem Gastroesophageal reflux disease, esophagitis presence not specified K21.9 Active 891756494 Problem Constipation by delayed colonic transit K59.01 Active 07971576 Problem Anxiety F41.9 Active 10627475 Problem Chronic otitis externa of both ears, unspecified type H60.63 Active 93952800 Problem -induced hypertension in third trimester O13.3 Active 42882323 ALLERGIES No Information ENCOUNTERS Encounter Location Date Diagnosis [address] [id number] Jun, Nausea R11.0 ; CVA tenderness M54.9 ; Acute cystitis without hematuria N30.00 and RUQ pain R10.[address] [id number] Jun, Anxiety F41.9 and Reactive depression F32.9 [place] [id number] [place] [address] [id number] Jun, [place] [id number] [place] [address] [id number] May, [facility] [address] [address] Apr, [address] [id number] Apr, Nonintractable episodic headache, unspecified headache type R51 and Dehydration E86.0 [facility] [address] [address] Apr, Other viral agents as the cause of diseases classified elsewhere B97.89 and Acute upper respiratory infection, unspecified J06.9 [place] [id number] [place] [address] Mar, care, first in third trimester Z34.03 ; - induced hypertension in third trimester O13.3 and 38 weeks gestation of Z3A.38 [place] [id number] [place] [address] Feb, 37 weeks gestation of Z3A.37 and care, first in third trimester Z34.03 [place] [id number] [place] [address] [id number] Feb, 36 weeks gestation of Z3A.36 and care in third trimester Z34.93 [place] [address] [id number] [place] [address] Feb, -induced hypertension in third trimester O13.3 ; Gastroesophageal reflux disease, esophagitis presence not specified K21.9 and 35 weeks gestation of Z3A.35 [place] [address] [id number] [place] [address] Feb, -induced hypertension in third trimester O13.3 ; Chronic otitis externa of both ears, unspecified type H60.63 and 34 weeks gestation of Z3A.34 [place] [address] [id number] [place] [phone] Jan, Patient is a currently breast-feeding mother Z39.1 [place] [address] [id number] [place] [address] Jan, -induced hypertension in third trimester O13.3 and 32 weeks gestation of Z3A.32 [address] [id number] [place] [address] [id number] Jan, [place] [address] [id number] [place] [address] Jan, 30 weeks gestation of Z3A.30 ; -induced hypertension in third trimester O13.3 and Encounter for immunization Z23 [facility] [id number] [place] [address] [id number] Jan, -induced hypertension in third trimester O13.3 [facility] [id number] [place] [address] [id number] Jan, [facility] [id number] [place] [address] [id number] Jan, [facility] [id number] [place] [address] [id number] Dec, 28 weeks gestation of Z3A.28 and -induced hypertension in third trimester O13.3 [facility] [place] [id number] [place] [address] [id number] Dec, [facility] [address] [place] [phone] Dec, [place] [id number] [place] [address] [id number] Dec, [facility] [id number] [place] [address] [id number] Dec, care, first in second trimester Z34.02 [place] [address] [id number] [place] [address] Dec, care, first in second trimester Z34.02 [facility] [address]00565[address] [id number] Dec, 25 weeks gestation of Z3A.25 [facility] [address] [id number] [place] [address] Nov, [facility] 120 [facility] [id number] [id number] Nov, 21 weeks gestation of Z3A.21 and Evaluate anatomy not seen on prior sonogram Z36 [facility] [id number] [id number] Nov, [facility] [address]00565100[place] [id number] Oct, 17 weeks gestation of Z3A.17 and Second trimester Z34.92 [facility] [id number], [place] [id number] Oct, [facility] [id number] [place] [address] [id number] Sep, [facility] [id number] [place] [address], [place] [id number] Sep, care, first in first trimester Z34.01 ; 13 weeks gestation of Z3A.13 ; Nausea and vomiting during O21.9 ; Other infective acute otitis externa of left ear H60.392 and heartbeat not heard O76 [facility] [id number] [place] [address] [id number] August, Visit for TB skin test Z11.1 and Screening for tuberculosis Z11.1 [facility] [id number] [place] [address] [id number] August, [facility] [id number] [place] [address] [id number] August, [facility] [id number] [place] [address] [id number] August, Normal , first Z34.00 ; 8 weeks gestation of Z3A.08 and Nausea and vomiting in O21.9 [facility] [id number] [place] [address] [id number] Jul, [facility] [id number] [place] [address] [id number] Jul, Low back pain at multiple sites M54.5 ; Other specified related conditions, first trimester O26.891 and Constipation by delayed colonic transit K59.01 [facility] [id number] [place] [address] [id number] Jul, test-positive Z32.01 [facility] [id number] [place] [address] [id number] Jul, [facility] [id number] [place] [address] [id number] Apr, Anxiety F41.9 and Irritability and anger R45.4 [facility] [id number] [place] [address] [id number] Apr, Anxiety F41.9 [place] [id number] [place] [address] [id number] Mar, [address] [id number] Mar, Acute non-recurrent maxillary sinusitis J01.00 and Bronchitis J40 [address] [id number] Mar, CVA tenderness M54.9 ; Acute diffuse otitis externa of both ears H60.313 ; Non- intractable vomiting with nausea, unspecified vomiting type R11.2 ; Date of last menstrual period (LMP) unknown Z78.9 ; Anxiety F41.9 and Anhedonia R45.[address] [id number] Mar, [facility] [address] [address] Mar, Right upper quadrant abdominal pain R10.[address] [id number] Jan, Bronchitis J40 and Acute suppurative otitis media of left ear without spontaneous rupture of tympanic membrane, recurrence not specified H66.002 [place] [id number] [place] [address] [id number] Sep, Insect bite, initial encounter W57.XXXA and Erythema L53.[address] [id number] May, Ear pain, right H92.[address] [id number] Dec, Otitis externa 380.10 and Sore throat 462 [facility] [address] [address] Nov, Sports physical V70.3 ; Exercise counseling V65.41 and Dietary counseling V65.3 IMMUNIZATIONS No Known Immunizations SOCIAL HISTORY Never Assessed REASON FOR VISIT Requests return call PLAN OF CARE VITAL SIGNS MEDICATIONS No Known Medications RESULTS No Results PROCEDURES No Known procedures INSTRUCTIONS MEDICATIONS ADMINISTERED No Known Medications MEDICAL (GENERAL) HISTORY Type Description Date Medical History Mononucleosis Medical History Hearing Loss Medical History Rh negative state in antepartum period, first trimester Surgical History section
--- OUTSIDE RECORDS SUMMARY | 2018-09-10 11:18 | XMS REPORT ---
Author Author SAMUEL ASHLEY [facility] Address [address] [place] [address] Care Team Providers Care Brim Raiser Name Role Phone DIONCATALINA ELISEHANY Unavailable PROBLEMS Type Condition ICD9-CM Code IRR83-AN Code Onset Dates Condition Status SNOMED Code Problem Reactive depression F32.9 Active 39115212 Problem Gastroesophageal reflux disease, esophagitis presence not specified K21.9 Active 576698602 Problem Constipation by delayed colonic transit K59.01 Active 35578017 Problem Anxiety F41.9 Active 55299738 Problem Chronic otitis externa of both ears, unspecified type H60.63 Active 74335905 Problem -induced hypertension in third trimester O13.3 Active 64169558 ALLERGIES No Known Allergies ENCOUNTERS Encounter Location Date Diagnosis [address] [id number] August, Cough R05 ; Acute non-recurrent maxillary sinusitis J01.00 and Acute diffuse otitis externa of left ear H60.312 [place] [id number] [place] [address] [id number] Jun, Nausea R11.0 ; CVA tenderness M54.9 ; Acute cystitis without hematuria N30.00 and RUQ pain R10.11 [place] [id number] [place] [address] [id number] Jun, Anxiety F41.9 and Reactive depression F32.9 [place] [id number] [place] [address] [id number] Jun, [place] [id number] [place] [address] [id number] May, [facility] [address] [place] [phone] Apr, [address] [id number] Apr, Nonintractable episodic headache, unspecified headache type R51 and Dehydration E86.0 [facility] IN [facility] [id number] [place] [phone] Apr, Other viral agents as the cause of diseases classified elsewhere B97.89 and Acute upper respiratory infection, unspecified J06.9 [place] [id number] [place] [phone] Mar, care, first in third trimester Z34.03 ; - induced hypertension in third trimester O13.3 and 38 weeks gestation of Z3A.38 [place] [id number] [place] [address] Feb, 37 weeks gestation of Z3A.37 and care, first in third trimester Z34.[address] [place] [address] [id number] Feb, 36 weeks gestation of Z3A.36 and care in third trimester Z34.93 [facility] [address] [place] [id number] [place] [phone] Feb, -induced hypertension in third trimester O13.3 ; Gastroesophageal reflux disease, esophagitis presence not specified K21.9 and 35 weeks gestation of Z3A.[address] [place] [phone] Feb, -induced hypertension in third trimester O13.3 ; Chronic otitis externa of both ears, unspecified type H60.63 and 34 weeks gestation of Z3A.34 [facility] [address] [place] [address] Jan, Patient is a currently breast-feeding mother Z39.1 [place] [id number] [place] [phone] Jan, -induced hypertension in third trimester O13.3 and 32 weeks gestation of Z3A.32 [address] [id number] Jan, [facility] [id number] [place] [phone] Jan, 30 weeks gestation of Z3A.30 ; -induced hypertension in third trimester O13.3 and Encounter for immunization Z23 [facility] [id number] [id number] Jan, -induced hypertension in third trimester O13.3 [facility] [place] [address] [id number] [id number] Jan, [facility] [id number] [place] [address] [id number] Jan, [facility] [id number] [place] [address] [id number] Dec, 28 weeks gestation of Z3A.28 and -induced hypertension in third trimester O13.3 [facility] [id number] [place] [address] [id number] Dec, [place] [address] [address] Dec, [facility] [id number] [place] [address] [id number] Dec, [facility] [id number] [place] [address] [id number] Dec, care, first in second trimester Z34.02 [place] [address] [address] Dec, care, first in second trimester Z34.02 [facility] [address] [id number] [id number] Dec, 25 weeks gestation of Z3A.25 [facility] [address] [id number] [place] [address] Nov, [facility] [id number][place] [id number] Nov, 21 weeks gestation of Z3A.21 and Evaluate anatomy not seen on prior sonogram Z36 [facility] [address] [id number] [phone] Nov, [facility] [address] [id number][place] [phone] Oct, 17 weeks gestation of Z3A.17 and Second trimester Z34.92 [facility] [place] [address] [id number] [phone] Oct, [facility] [id number] [place] [address] [id number] Sep, [facility] [address] [id number] [phone] Sep, care, first in first trimester Z34.01 ; 13 weeks gestation of Z3A.13 ; Nausea and vomiting during O21.9 ; Other infective acute otitis externa of left ear H60.392 and heartbeat not heard O76 [facility] [id number][place] [id number] August, Visit for TB skin test Z11.1 and Screening for tuberculosis Z11.1 [facility] [id number][place] [id number] August, [facility] [id number] [place] [address] [id number] August, [facility] [id number][place] [id number] August, Normal , first Z34.00 ; 8 weeks gestation of Z3A.08 and Nausea and vomiting in O21.9 [facility] [address] [id number], [place] [phone] Jul, [facility] [id number][place] [id number] Jul, Low back pain at multiple sites M54.5 ; Other specified related conditions, first trimester O26.891 and Constipation by delayed colonic transit K59.01 [facility] [address] [id number][place] [id number] Jul, test-positive Z32.01 [facility] [id number], [place] [phone] Jul, [address] [place] [address] [id number] Apr, Anxiety F41.9 and Irritability and anger R45.4 [place] [id number] [place] [address] [id number] Apr, Anxiety F41.[address] [id number] Mar, [address] [id number] Mar, Acute non-recurrent maxillary sinusitis J01.00 and Bronchitis J40 [address] [id number] Mar, CVA tenderness M54.9 ; Acute diffuse otitis externa of both ears H60.313 ; Non- intractable vomiting with nausea, unspecified vomiting type R11.2 ; Date of last menstrual period (LMP) unknown Z78.9 ; Anxiety F41.9 and Anhedonia R45.84 [place] [id number] [place] [address] [id number] Mar, [facility] [address] [address] Mar, Right upper quadrant abdominal pain R10.[address] [id number] Jan, Bronchitis J40 and Acute suppurative otitis media of left ear without spontaneous rupture of tympanic membrane, recurrence not specified H66.002 [place] [id number] [place] [address] [id number] Sep, Insect bite, initial encounter W57.XXXA and Erythema L53.[address] [id number] May, Ear pain, right H92.[address] [id number] Dec, Otitis externa 380.10 and Sore throat 462 [facility] [address] [address] Nov, Sports physical V70.3 ; Exercise counseling V65.41 and Dietary counseling V65.3 IMMUNIZATIONS No Known Immunizations SOCIAL HISTORY Never Assessed REASON FOR VISIT OB f/u - 1 week--CarleyleachMA, contractions, swelling, and head aches PLAN OF CARE Activity Details Follow Up 1 Week, 1 Week, 1 Week, 1 Week Reason: VITAL SIGNS Height 67 in 2017-03-15 Weight 197.3 lbs 2017-03-15 Temperature 98.0 degrees Fahrenheit 2017-03-15 Heart Rate 80 bpm 2017-03-15 Respiratory Rate 16 2017-03-15 BMI 30.902 kg/m2 2017-03-15 Blood pressure systolic 130 mmHg 2017-03-15 Blood pressure diastolic 78 mmHg 2017-03-15 MEDICATIONS Medication Instructions Dosage Frequency Start Date End Date Duration Status Ranitidine HCl 150 MG Orally Once a day 1 capsule at bedtime 24h Feb, 30 day(s) Active Benadryl Allergy 25 MG Orally every 8 hrs 1 tablet as needed 8h Active Tussin 100 MG/5ML Orally every 4 hrs 10 ml as needed 4h Active RESULTS Name Result Date Reference Range UA OB DIP (IN HOUSE) 2017-03-15 Glucose neg Protein neg PROCEDURES Procedure Date Ordered Result Body Site URINE-NO MICRO Mar 15, 2017 INSTRUCTIONS MEDICATIONS ADMINISTERED No Known Medications MEDICAL (GENERAL) HISTORY Type Description Date Medical History Mononucleosis Medical History Hearing Loss Medical History Rh negative state in antepartum period, first trimester Surgical History section
--- OUTSIDE RECORDS SUMMARY | 2018-09-10 11:18 | XMS REPORT ---
Author Author DION SAMUEL [facility] Address [address] [place] [address] Care Team Providers Care Cardiac Specialist Name Role Phone DIONASHLEY ELISEY Unavailable PROBLEMS Type Condition ICD9-CM Code XRA27-GD Code Onset Dates Condition Status SNOMED Code Problem Reactive depression F32.9 Active 30263931 Problem Gastroesophageal reflux disease, esophagitis presence not specified K21.9 Active 688811054 Problem Constipation by delayed colonic transit K59.01 Active 36354944 Problem Anxiety F41.9 Active 54973362 Problem Chronic otitis externa of both ears, unspecified type H60.63 Active 48562834 Problem -induced hypertension in third trimester O13.3 Active 57851276 ALLERGIES No Information ENCOUNTERS Encounter Location Date Diagnosis [place] [id number] [place] [id number] Jul, [address] [id number] Jun, [address] [id number] Jun, Nausea R11.0 ; CVA tenderness M54.9 ; Acute cystitis without hematuria N30.00 and RUQ pain R10.11 [place] [id number] [place] [address] [id number] Jun, Anxiety F41.9 and Reactive depression F32.9 [place] [id number] [place] [address] [id number] Jun, [address] [id number] May, [facility] [address] [place] [phone] Apr, [address] [id number] Apr, Nonintractable episodic headache, unspecified headache type R51 and Dehydration E86.0 [facility] [address] [place] [phone] Apr, Other viral agents as the cause of diseases classified elsewhere B97.89 and Acute upper respiratory infection, unspecified J06.9 [place] [id number] [place] [phone] Mar, care, first in third trimester Z34.03 ; - induced hypertension in third trimester O13.3 and 38 weeks gestation of Z3A.38 [place] [id number] [place] [phone] 30 Feb, 2017 37 weeks gestation of Z3A.37 and care, first in third trimester Z34.03 [address] [place] [address] [id number] Feb, 36 weeks gestation of Z3A.36 and care in third trimester Z34.93 [facility] [id number] [place] [phone] Feb, -induced hypertension in third trimester O13.3 ; Gastroesophageal reflux disease, esophagitis presence not specified K21.9 and 35 weeks gestation of Z3A.35 [place] [id number] [place] [phone] Feb, -induced hypertension in third trimester O13.3 ; Chronic otitis externa of both ears, unspecified type H60.63 and 34 weeks gestation of Z3A.34 [place] [address] [place] [phone] Jan, Patient is a currently breast-feeding mother Z39.1 [facility] [id number] [place] [phone] Jan, -induced hypertension in third trimester O13.3 and 32 weeks gestation of Z3A.[address] [place] [id number] [place] [address] [place] [phone] Jan, [facility] [address]100[place] [address] Jan, 30 weeks gestation of Z3A.30 ; -induced hypertension in third trimester O13.3 and Encounter for immunization Z23 [facility] [place] [address] [id number] [id number] Jan, -induced hypertension in third trimester O13.3 [facility] [place] [address] [id number] [id number] Jan, [facility] [place] [id number] [place] [place] [address] [phone] Jan, [facility] [place] [id number] [place] [address] [id number] Dec, 28 weeks gestation of Z3A.28 and -induced hypertension in third trimester O13.3 [facility] [id number], [place] [id number] Dec, [facility] [address]00565100[place] [address] Dec, [facility] [id number], [place] [id number] Dec, [facility] [address] [place] [id number] [id number] Dec, care, first in second trimester Z34.02 [place] [address]00565100[place] [address] Dec, care, first in second trimester Z34.02 [facility] [address] [id number], [place] [phone] Dec, 25 weeks gestation of Z3A.25 [facility] [address] [id number] [place] [address] Nov, [facility] [address] [id number], [place] [phone] Nov, 21 weeks gestation of Z3A.21 and Evaluate anatomy not seen on prior sonogram Z36 [facility] [address] [id number], [place] [phone] Nov, [facility] [place] [address] [id number] [place] [id number] Oct, 17 weeks gestation of Z3A.17 and Second trimester Z34.92 [facility] [place] [address] [id number] [place] [id number] Oct, [facility] [place] [address] [id number], [place] [phone] Sep, [facility] [place] [id number] [place] [id number] Sep, care, first in first trimester Z34.01 ; 13 weeks gestation of Z3A.13 ; Nausea and vomiting during O21.9 ; Other infective acute otitis externa of left ear H60.392 and heartbeat not heard O76 [facility] [place] [id number], [place] [id number] August, Visit for TB skin test Z11.1 and Screening for tuberculosis Z11.1 [facility] [place] [id number], [place] [id number] August, [facility] [place] [id number] [place] [place] [address] [id number] August, [facility] [place] [id number], [place] [id number] August, Normal , first Z34.00 ; 8 weeks gestation of Z3A.08 and Nausea and vomiting in O21.9 [facility] [place] [address] [id number], [place] [id number] Jul, [facility] [place] [id number], [place] [id number] Jul, Low back pain at multiple sites M54.5 ; Other specified related conditions, first trimester O26.891 and Constipation by delayed colonic transit K59.01 [facility] [place] [address] [id number], [place] [id number] Jul, test-positive Z32.01 [facility] [place] [id number], [place] [id number] Jul, [address] [place] [place] [address] [id number] Apr, Anxiety F41.9 and Irritability and anger R45.[address] [id number] Apr, Anxiety F41.[address] [id number] Mar, [address] [id number] Mar, Acute non-recurrent maxillary sinusitis J01.00 and Bronchitis J40 [address] [id number] Mar, CVA tenderness M54.9 ; Acute diffuse otitis externa of both ears H60.313 ; Non- intractable vomiting with nausea, unspecified vomiting type R11.2 ; Date of last menstrual period (LMP) unknown Z78.9 ; Anxiety F41.9 and Anhedonia R45.84 [place] [id number] [place] [place] [address] [id number] Mar, [facility] [address] [address] Mar, Right upper quadrant abdominal pain R10.[address] [id number] Jan, Bronchitis J40 and Acute suppurative otitis media of left ear without spontaneous rupture of tympanic membrane, recurrence not specified H66.002 [place] [address] [place] [place] [address] [id number] Sep, Insect bite, initial encounter W57.XXXA and Erythema L53.[address] [id number] May, Ear pain, right H92.[address] [id number] Dec, Otitis externa 380.10 and Sore throat 462 [facility] [address] [address] Nov, Sports physical V70.3 ; Exercise counseling [...]
--- OUTSIDE RECORDS SUMMARY | 2018-09-10 11:18 | XMS REPORT ---
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 Role Phone DASHAWN BAUER Unavailable PROBLEMS Type Condition ICD9-CM Code NBZ13-UF Code Onset Dates Condition Status SNOMED Code Problem Reactive depression F32.9 Active 14412198 Problem Gastroesophageal reflux disease, esophagitis presence not specified K21.9 Active 172598716 Problem Constipation by delayed colonic transit K59.01 Active 30295623 Problem Anxiety F41.9 Active 53866797 Problem Chronic otitis externa of both ears, unspecified type H60.63 Active 84910153 Problem -induced hypertension in third trimester O13.3 Active 53057129 ALLERGIES No Information ENCOUNTERS Encounter Location Date Diagnosis [facility] [address] [id number] Jun, Nausea R11.0 ; CVA tenderness M54.9 ; Acute cystitis without hematuria N30.00 and RUQ pain R10.11 [facility] [address] [id number] Jun, Anxiety F41.9 and Reactive depression F32.9 [facility] [id number] [place] [address] [id number] Jun, [facility] [id number] [place] [address] [id number] May, [facility] [address] [address] Apr, [facility] [address] [id number] Apr, Nonintractable episodic headache, unspecified headache type R51 and Dehydration E86.0 [facility] [address] [place] [address] Apr, Other viral agents as the cause of diseases classified elsewhere B97.89 and Acute upper respiratory infection, unspecified J06.9 [place] [id number] [place] [phone] Mar, care, first in third trimester Z34.03 ; - induced hypertension in third trimester O13.3 and 38 weeks gestation of Z3A.38 [place] [id number] [place] [phone] Feb, 37 weeks gestation of Z3A.37 and care, first in third trimester Z34.03 [place] [id number] [place] [address] [id number] Feb, 36 weeks gestation of Z3A.36 and care in third trimester Z34.[address] [address] Feb, -induced hypertension in third trimester O13.3 ; Gastroesophageal reflux disease, esophagitis presence not specified K21.9 and 35 weeks gestation of Z3A.35 [place] [id number] [place] [phone] Feb, -induced hypertension in third trimester O13.3 ; Chronic otitis externa of both ears, unspecified type H60.63 and 34 weeks gestation of Z3A.34 [place] [id number] [place] [phone] Jan, Patient is a currently breast-feeding mother Z39.1 [place] [id number] [place] [phone] Jan, -induced hypertension in third trimester O13.3 and 32 weeks gestation of Z3A.32 [place] [id number] [place] [address] [id number] Jan, [place] [id number] [place] [phone] Jan, 30 weeks gestation of Z3A.30 ; -induced hypertension in third trimester O13.3 and Encounter for immunization Z23 [facility] [place] [id number] [place] [address] [id number] Jan, -induced hypertension in third trimester O13.3 [facility] [place] [id number] [place] [address] [id number] Jan, [facility] [place] [id number] [place] [address] [id number] Jan, [facility] [place] [id number] [place] [address] [id number] Dec, 28 weeks gestation of Z3A.28 and -induced hypertension in third trimester O13.3 [facility] [place] [id number] [place] [address] [id number] Dec, [facility] [address] [address] Dec, [facility] [id number] [place] [address] [id number] Dec, [facility] [id number] [place] [address] [id number] Dec, care, first in second trimester Z34.02 [facility] [id number] [place] [phone] Dec, care, first in second trimester Z34.02 [facility] [id number] [id number] Dec, 25 weeks gestation of Z3A.25 [facility] [address] [id number] [place] [address] Nov, [facility] [id number] [place] [address] [id number] Nov, 21 weeks gestation of Z3A.21 and Evaluate anatomy not seen on prior sonogram Z36 [facility] [place] [id number] [phone] Nov, [facility] [id number] [place] [address] [phone] Oct, 17 weeks gestation of Z3A.17 and Second trimester Z34.92 [facility] [place] [id number] [place] [address] [id number] Oct, [facility] [place] [id number] [place] [address] [id number] Sep, [facility] [id number] [place] [address] [id number] Sep, care, first in first trimester Z34.01 ; 13 weeks gestation of Z3A.13 ; Nausea and vomiting during O21.9 ; Other infective acute otitis externa of left ear H60.392 and heartbeat not heard O76 [facility] [place] [id number] [place] [address] [id number] August, Visit for TB skin test Z11.1 and Screening for tuberculosis Z11.1 [facility] [place] [id number] [place] [address] [id number] August, [facility] [place] [id number] [place] [address] [id number] August, [facility] [id number] [place] [address] [id number] August, Normal , first Z34.00 ; 8 weeks gestation of Z3A.08 and Nausea and vomiting in O21.9 [facility] [place] [id number] [place] [address] [id number] Jul, [place] [id number] [place] [address] [id number] Jul, Low back pain at multiple sites M54.5 ; Other specified related conditions, first trimester O26.891 and Constipation by delayed colonic transit K59.01 [facility] [place] [id number] [place] [address] [id number] Jul, test-positive Z32.01 [facility] [place] [id number] [place] [address] [id number] Jul, [facility] [id number] [place] [address] [id number] Apr, Anxiety F41.9 and Irritability and anger R45.4 [place] [id number] [place] [address] [id number] Apr, Anxiety F41.[address] [id number] Mar, [address] [id number] Mar, Acute non-recurrent maxillary sinusitis J01.00 and Bronchitis J40 [address] [id number] Mar, CVA tenderness M54.9 ; Acute diffuse otitis externa of both ears H60.313 ; Non- intractable vomiting with nausea, unspecified vomiting type R11.2 ; Date of last menstrual period (LMP) unknown Z78.9 ; Anxiety F41.9 and Anhedonia R45.[address] [id number] Mar, [facility] [address] [address] Mar, Right upper quadrant abdominal pain R10.[address] [id number] Jan, Bronchitis J40 and Acute suppurative otitis media of left ear without spontaneous rupture of tympanic membrane, recurrence not specified H66.002 [place] [id number] [place] [address] [id number] Sep, Insect bite, initial encounter W57.XXXA and Erythema L53.[address] [id number] May, Ear pain, right H92.[address] [id number] Dec, Otitis externa 380.10 and Sore throat 462 [facility] [address] [address] Nov, Sports physical V70.3 ; Exercise counseling V65.41 and Dietary counseling V65.3 IMMUNIZATIONS No Known Immunizations SOCIAL HISTORY Never Assessed REASON FOR VISIT Lab [facility] PLAN OF CARE VITAL SIGNS MEDICATIONS No Known Medications RESULTS No Results PROCEDURES Procedure Date Ordered Result Body Site LAB NOT BILLED BY [facility] Jan 17, 2017 [place], ROUTINE* Jan 17, 2017 INSTRUCTIONS MEDICATIONS ADMINISTERED No Known Medications MEDICAL (GENERAL) HISTORY Type Description Date Medical History Mononucleosis Medical History Hearing Loss Medical History Rh negative state in antepartum period, first trimester Surgical History section
--- OUTSIDE RECORDS SUMMARY | 2018-09-10 11:19 | XMS REPORT ---
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 Name Role Phone ASHLEY ASHLEYY Unavailable PROBLEMS Type Condition ICD9-CM Code UHV43-GW Code Onset Dates Condition Status SNOMED Code Problem Reactive depression F32.9 Active 34869009 Problem Gastroesophageal reflux disease, esophagitis presence not specified K21.9 Active 959790563 Problem Constipation by delayed colonic transit K59.01 Active 48544177 Problem Anxiety F41.9 Active 41494762 Problem Chronic otitis externa of both ears, unspecified type H60.63 Active 33786151 Problem -induced hypertension in third trimester O13.3 Active 30939024 ALLERGIES No Information ENCOUNTERS Encounter Location Date Diagnosis [address] [id number] Jun, Nausea R11.0 ; CVA tenderness M54.9 ; Acute cystitis without hematuria N30.00 and RUQ pain R10.[address] [id number] Jun, Anxiety F41.9 and Reactive depression F32.9 [place] [id number] [place] [address] [id number] Jun, [place] [id number] [place] [address] [id number] May, [facility] [address] [address] Apr, [address] [id number] Apr, Nonintractable episodic headache, unspecified headache type R51 and Dehydration E86.[address] [facility] [address] [address] Apr, Other viral agents as the cause of diseases classified elsewhere B97.89 and Acute upper respiratory infection, unspecified J06.9 [place] [address] [place] [id number] [place] [address] Mar, care, first in third trimester Z34.03 ; - induced hypertension in third trimester O13.3 and 38 weeks gestation of Z3A.38 [place] [address] [place] [address] [id number] [place] [address] Feb, 37 weeks gestation of Z3A.37 and care, first in third trimester Z34.03 [place] [id number] [place] [address] [id number] Feb, 36 weeks gestation of Z3A.36 and care in third trimester Z34.93 [place] [address] [id number] [place] [address] Feb, -induced hypertension in third trimester O13.3 ; Gastroesophageal reflux disease, esophagitis presence not specified K21.9 and 35 weeks gestation of Z3A.35 [place] [id number] [place] [address] Feb, -induced hypertension in third trimester O13.3 ; Chronic otitis externa of both ears, unspecified type H60.63 and 34 weeks gestation of Z3A.34 [place] [id number] [place] [phone] Jan, Patient is a currently breast-feeding mother Z39.1 [place] [id number] [place] [address] Jan, -induced hypertension in third trimester O13.3 and 32 weeks gestation of Z3A.32 [place] [id number] [place] [address] [id number] Jan, [place] [id number] [place] [address] Jan, 30 weeks gestation of Z3A.30 ; -induced hypertension in third trimester O13.3 and Encounter for immunization Z23 [facility] [id number] [place] [address] [id number] Jan, -induced hypertension in third trimester O13.3 [facility] [id number] [place] [address] [id number] Jan, [facility] [id number] [place] [address] [id number] Jan, [facility] [id number] [place] [address] [id number] Dec, 28 weeks gestation of Z3A.28 and -induced hypertension in third trimester O13.3 [facility] [id number] [place] [address] [id number] Dec, [facility] [address] [place] [address] Dec, [place] [id number] [place] [address] [id number] Dec, [facility] [id number] [place] [address] [id number] Dec, care, first in second trimester Z34.02 [place] [address] [place] [address] [id number] [place] [address] Dec, care, first in second trimester Z34.02 [facility] [address] [id number] Dec, 25 weeks gestation of Z3A.25 [facility] [address] [id number] [place] [address] Nov, [facility] [address] [facility] [id number] [id number] Nov, 21 weeks gestation of Z3A.21 and Evaluate anatomy not seen on prior sonogram Z36 [facility] [id number] [id number] Nov, [facility] [address] [id number] Oct, 17 weeks gestation of Z3A.17 and Second trimester Z34.92 [facility] [place] [id number], [place] [id number] Oct, [facility] [place] [id number] [place] [address] [id number] Sep, [facility] [place] [id number] [place] [address], [place] [id number] Sep, care, first in first trimester Z34.01 ; 13 weeks gestation of Z3A.13 ; Nausea and vomiting during O21.9 ; Other infective acute otitis externa of left ear H60.392 and heartbeat not heard O76 [facility] [id number] [place] [address] [id number] August, Visit for TB skin test Z11.1 and Screening for tuberculosis Z11.1 [facility] [id number] [place] [address] [id number] August, [facility] [id number] [place] [address] [id number] August, [facility] [id number] [place] [address] [id number] August, Normal , first Z34.00 ; 8 weeks gestation of Z3A.08 and Nausea and vomiting in O21.9 [facility] [id number] [place] [address] [id number] Jul, [facility] [id number] [place] [address] [id number] Jul, Low back pain at multiple sites M54.5 ; Other specified related conditions, first trimester O26.891 and Constipation by delayed colonic transit K59.01 [facility] [id number] [place] [address] [id number] Jul, test-positive Z32.01 [facility] [id number] [place] [address] [id number] Jul, [facility] [id number] [place] [address] [id number] Apr, Anxiety F41.9 and Irritability and anger R45.4 [facility] [place] [address] [id number] [place] [address] [id number] Apr, Anxiety F41.9 [place] [id number] [place] [address] [id number] Mar, [address] [id number] Mar, Acute non-recurrent maxillary sinusitis J01.00 and Bronchitis J40 [address] [id number] Mar, CVA tenderness M54.9 ; Acute diffuse otitis externa of both ears H60.313 ; Non- intractable vomiting with nausea, unspecified vomiting type R11.2 ; Date of last menstrual period (LMP) unknown Z78.9 ; Anxiety F41.9 and Anhedonia R45.[address] [id number] Mar, [facility] [address] [address] Mar, Right upper quadrant abdominal pain R10.[address] [id number] Jan, Bronchitis J40 and Acute suppurative otitis media of left ear without spontaneous rupture of tympanic membrane, recurrence not specified H66.002 [place] [id number] [place] [address] [id number] Sep, Insect bite, initial encounter W57.XXXA and Erythema L53.[address] [id number] May, Ear pain, right H92.[address] [id number] Dec, Otitis externa 380.10 and Sore throat 462 [facility] [address] [address] Nov, Sports physical V70.3 ; Exercise counseling V65.41 and Dietary counseling V65.3 IMMUNIZATIONS No Known Immunizations SOCIAL HISTORY Never Assessed REASON FOR VISIT OB PLAN OF CARE VITAL SIGNS MEDICATIONS No Known Medications RESULTS No Results PROCEDURES No Known procedures INSTRUCTIONS MEDICATIONS ADMINISTERED No Known Medications MEDICAL (GENERAL) HISTORY Type Description Date Medical History Mononucleosis Medical History Hearing Loss Medical History Rh negative state in antepartum period, first trimester Surgical History section
--- OUTSIDE RECORDS SUMMARY | 2018-09-10 11:19 | XMS REPORT ---
Author Author DION SAMUEL [facility] Address [address] [place] [address] Care Team Providers Care Office Professional Name Role Phone ASHLEY ASHLEYY Unavailable PROBLEMS Type Condition ICD9-CM Code [id number] Code Onset Dates Condition Status SNOMED Code Problem Reactive depression F32.9 Active 64142293 Problem Gastroesophageal reflux disease, esophagitis presence not specified K21.9 Active 037119595 Problem Constipation by delayed colonic transit K59.01 Active 37053800 Problem Anxiety F41.9 Active 58516308 Problem Chronic otitis externa of both ears, unspecified type H60.63 Active 34576828 Problem -induced hypertension in third trimester O13.3 Active 03860371 ALLERGIES No Known Allergies ENCOUNTERS Encounter Location Date Diagnosis [address] [id number] Jul, [address] [id number] Jun, Nausea R11.0 ; CVA tenderness M54.9 ; Acute cystitis without hematuria N30.00 and RUQ pain R10.11 [place] [id number] [place] [address] [phone] Jun, Anxiety F41.9 and Reactive depression F32.9 [place] [id number] [place] [address] [phone] Jun, [place] [id number] [place] [address] [phone] May, [facility] [address] [place] [phone] Apr, [place] [id number] [place] [address] [phone] Apr, Nonintractable episodic headache, unspecified headache type R51 and Dehydration E86.0 [facility] [address] [place] [phone] Apr, Other viral agents as the cause of diseases classified elsewhere B97.89 and Acute upper respiratory infection, unspecified J06.[address] [place] [phone] Mar, care, first in third trimester Z34.03 ; - induced hypertension in third trimester O13.3 and 38 weeks gestation of Z3A.38 [place] [id number] [place] [phone] Feb, 37 weeks gestation of Z3A.37 and care, first in third trimester Z34.03 [place] [id number] [place] [address] [phone] Feb, 36 weeks gestation of Z3A.36 and care in third trimester Z34.[address] [address] Feb, -induced hypertension in third trimester O13.3 ; Gastroesophageal reflux disease, esophagitis presence not specified K21.9 and 35 weeks gestation of Z3A.35 [place] [id number] [place] [phone] Feb, -induced hypertension in third trimester O13.3 ; Chronic otitis externa of both ears, unspecified type H60.63 and 34 weeks gestation of Z3A.34 [place] [id number] [place] [phone] Jan, Patient is a currently breast-feeding mother Z39.[address] [address] Jan, -induced hypertension in third trimester O13.3 and 32 weeks gestation of Z3A.[address] [facility] [id number] [place] [address] [phone] Jan, [place] [address] Jan, 30 weeks gestation of Z3A.30 ; -induced hypertension in third trimester O13.3 and Encounter for immunization Z23 [facility] [id number] [id number] Jan, -induced hypertension in third trimester O13.[address] [facility] [place] [address] [place] [id number] [place] [address] [phone] Jan, [facility] [place] [address] [id number] [place] [address] [id number] Jan, [facility] [address] [address] [id number] [place] [address] [phone] Dec, 28 weeks gestation of Z3A.28 and -induced hypertension in third trimester O13.[address] [facility] [id number] [place] [address] [phone] Dec, [facility] [id number] [place] [phone] Dec, [facility] [id number] [place] [address] [phone] Dec, [facility] [address] [address] [id number] [place] [address] [id number] Dec, care, first in second trimester Z34.02 [facility] [id number] [place] [phone] Dec, care, first in second trimester Z34.[address] [facility] [id number] [place] [address] [phone] Dec, 25 weeks gestation of Z3A.25 [facility] [address] [id number] [address] Nov, [facility] [id number] [place] [address] [id number] Nov, 21 weeks gestation of Z3A.21 and Evaluate anatomy not seen on prior sonogram Z36 [facility] [id number] [place] [address] [phone] Nov, [facility] [id number] [phone] Oct, 17 weeks gestation of Z3A.17 and Second trimester Z34.92 [facility] [place] [address] [place] [id number] [place] [address] [phone] Oct, [facility] [place] [address] [id number] [place] [address] [phone] Sep, [facility] [place] [address] [address] [id number] [place] [address] [id number] Sep, care, first in first trimester Z34.01 ; 13 weeks gestation of Z3A.13 ; Nausea and vomiting during O21.9 ; Other infective acute otitis externa of left ear H60.392 and heartbeat not heard O[address] [facility] [place] [address] [address] [id number] [place] [address] [phone] August, Visit for TB skin test Z11.1 and Screening for tuberculosis Z11.1 [facility] [place] [id number] [place] [address] [phone] August, [facility] [place] [address] [address] [id number] [place] [address] [phone] August, [facility] [place] [address] [place] [id number] [place] [address] [phone] August, Normal , first Z34.00 ; 8 weeks gestation of Z3A.08 and Nausea and vomiting in O21.9 [facility] [place] [id number] [place] [address] [phone] Jul, [facility] [address] [id number] [place] [address] [id number] Jul, Low back pain at multiple sites M54.5 ; Other specified related conditions, first trimester O26.891 and Constipation by delayed colonic transit K59.01 [facility] [place] [address] [place] [id number] [place] [address] [id number] Jul, test-positive Z32.01 [facility] [place] [id number] [place] [address] [id number] Jul, [facility] [place] [address] [place] [id number] [place] [address] [id number] Apr, Anxiety F41.9 and Irritability and anger R45.[address] [id number] Apr, Anxiety F41.[address] [id number] Mar, [address] [id number] Mar, Acute non-recurrent maxillary sinusitis J01.00 and Bronchitis J40 [address] [id number] Mar, CVA tenderness M54.9 ; Acute diffuse otitis externa of both ears H60.313 ; Non- intractable vomiting with nausea, unspecified vomiting type R11.2 ; Date of last menstrual period (LMP) unknown Z78.9 ; Anxiety F41.9 and Anhedonia R45.[address] [id number] Mar, [facility] [address] [address] Mar, Right upper quadrant abdominal pain R10.[address] [id number] Jan, Bronchitis J40 and Acute suppurative otitis media of left ear without spontaneous rupture of tympanic membrane, recurrence not specified H66.[address] [id number] Sep, Insect bite, initial encounter W57.XXXA and Erythema L53.[address] [id number] May, Ear pain, right H92.[address] [id number] Dec, Otitis externa 380.10 and Sore throat 462 [facility] [address] [address] Nov, Sports physical V70.3 ; Exercise counseling V65.41 and Dietary counseling V65.3 IMMUNIZATIONS No Known Immunizations SOCIAL HISTORY Never Assessed REASON FOR VISIT OB f/u [facility] PLAN OF CARE Activity Details Follow Up 4 Weeks, 4 Weeks Reason: VITAL SIGNS Height 67 in 2016-10-24 Weight 178.1 lbs 2016-10-24 Temperature 99 degrees Fahrenheit 2016-10-24 Heart Rate 84 bpm 2016-10-24 Respiratory Rate 16 2016-10-24 BMI 27.894 kg/m2 2016-10-24 Blood pressure systolic 124 mmHg 2016-10-24 Blood pressure diastolic 70 mmHg 2016-10-24 MEDICATIONS Medication Instructions Dosage Frequency Start Date End Date Duration Status Formula 28-0.8-235 MG Orally Once a day 1 capsule 24h Jul, 0 days Active Diclegis 10-10 MG Orally Once a day 2 tablets at bedtime on an empty stomach 24h Sep, 30 day(s) Active RESULTS No Results PROCEDURES Procedure Date Ordered Result Body Site INHIBIN A October 24, 2016 VENIPUNCT, ROUTINE* October 24, 2016 INSTRUCTIONS MEDICATIONS ADMINISTERED No Known Medications MEDICAL (GENERAL) HISTORY Type Description Date Medical History Mononucleosis Medical History Hearing Loss Medical History Rh negative state in antepartum period, first trimester Surgical History section
--- OUTSIDE RECORDS SUMMARY | 2018-09-10 11:19 | XMS REPORT ---
Author Author DION SAMUEL [facility] Address [address] [place] [address] Care Team Providers Care Traffic Superintendent Name Role Phone DIONASHLEY ELISEY Unavailable PROBLEMS Type Condition ICD9-CM Code [id number] Code Onset Dates Condition Status SNOMED Code Problem Reactive depression F32.9 Active 14278452 Problem Gastroesophageal reflux disease, esophagitis presence not specified K21.9 Active 980323385 Problem Constipation by delayed colonic transit K59.01 Active 02580590 Problem Anxiety F41.9 Active 36436411 Problem Chronic otitis externa of both ears, unspecified type H60.63 Active 35102922 Problem -induced hypertension in third trimester O13.3 Active 94222008 ALLERGIES No Known Allergies ENCOUNTERS Encounter Location Date Diagnosis [address] [id number] Jun, Nausea R11.0 ; CVA tenderness M54.9 ; Acute cystitis without hematuria N30.00 and RUQ pain R10.[address] [facility] [address] [id number] Jun, Anxiety F41.9 and Reactive depression F32.9 [place] [id number] [place] [address] [phone] Jun, [address] [id number] May, [facility] [address] [address] Apr, [address] [id number] Apr, Nonintractable episodic headache, unspecified headache type R51 and Dehydration E86.0 [facility] [address] [address] Apr, Other viral agents as the cause of diseases classified elsewhere B97.89 and Acute upper respiratory infection, unspecified J06.9 [place] [address] [place] [id number] [place] [address] Mar, care, first in third trimester Z34.03 ; - induced hypertension in third trimester O13.3 and 38 weeks gestation of Z3A.38 [place] [address] [place] [id number] [place] [phone] Feb, 37 weeks gestation of Z3A.37 and care, first in third trimester Z34.03 [place] [id number] [place] [address] [id number] Feb, 36 weeks gestation of Z3A.36 and care in third trimester Z34.93 [place] [address] [place] [id number] [place] [phone] Feb, -induced hypertension in third trimester O13.3 ; Gastroesophageal reflux disease, esophagitis presence not specified K21.9 and 35 weeks gestation of Z3A.35 [place] [address] [place] [id number] [place] [phone] Feb, -induced hypertension in third trimester O13.3 ; Chronic otitis externa of both ears, unspecified type H60.63 and 34 weeks gestation of Z3A.34 [place] [address] [place] [id number] [place] [phone] Jan, Patient is a currently breast-feeding mother Z39.1 [place] [address] [place] [id number] [place] [phone] Jan, -induced hypertension in third trimester O13.3 and 32 weeks gestation of Z3A.32 [place] [id number] [place] [address] [id number] Jan, [place] [address] [place] [id number] [place] [phone] Jan, 30 weeks gestation of Z3A.30 ; -induced hypertension in third trimester O13.3 and Encounter for immunization Z23 [facility] [place] [address] [place] [id number] [place] [address] [id number] Jan, -induced hypertension in third trimester O13.3 [facility] [place] [id number] [place] [address] [phone] Jan, [facility] [place] [address] [place] [id number] [place] [address] [id number] Jan, [facility] [place] [address] [place] [id number] [place] [address] [id number] Dec, 28 weeks gestation of Z3A.28 and -induced hypertension in third trimester O13.3 [facility] [place] [address] [place] [id number] [place] [address] [phone] Dec, [facility] [address] [place] [id number] [place] [phone] Dec, [facility] [address] [place] [id number] [place] [address] [phone] Dec, [facility] [address] [place] [id number] [place] [address] [id number] Dec, care, first in second trimester Z34.02 [place] [address] [place] [id number] [place] [address] Dec, care, first in second trimester Z34.[address] [facility] [address] [id number] Dec, 25 weeks gestation of Z3A.25 [facility] [address] [id number] [place] [address] Nov, [facility] [address] [id number] Nov, 21 weeks gestation of Z3A.21 and Evaluate anatomy not seen on prior sonogram Z36 [facility] [id number] [id number] Nov, [facility] [address] [place] [id number] [id number] Oct, 17 weeks gestation of Z3A.17 and Second trimester Z34.92 [facility] [place] [id number] [id number] Oct, [facility] [place] [address] [place] [id number] [place] [address] [id number] Sep, [facility] [place] [address] [place] [id number] [phone] Sep, care, first in first trimester Z34.01 ; 13 weeks gestation of Z3A.13 ; Nausea and vomiting during O21.9 ; Other infective acute otitis externa of left ear H60.392 and heartbeat not heard O76 [facility] [place] [address] [place] [id number] [place] [address] [id number] August, Screening for tuberculosis Z11.1 and Visit for TB skin test Z11.1 [facility] [place] [address] [place] [id number] [place] [address] [id number] August, [facility] [place] [address] [place] [id number] [place] [address] [id number] August, [facility] [place] [address] [place] [id number] [place] [address] [id number] August, Normal , first Z34.00 ; 8 weeks gestation of Z3A.08 and Nausea and vomiting in O21.9 [facility] [place] [address] [place] [id number] [place] [address] [id number] Jul, [facility] [place] [address] [place] [id number] [place] [address] [id number] Jul, Low back pain at multiple sites M54.5 ; Other specified related conditions, first trimester O26.891 and Constipation by delayed colonic transit K59.01 [facility] [place] [id number] [id number] Jul, test-positive Z32.01 [facility] [place] [id number] [place] [address] [id number] Jul, [facility] [place] [address] [place] [id number] [place] [address] [id number] Apr, Anxiety F41.9 and Irritability and anger R45.4 [facility] [place] [id number] [place] [address] [id number] Apr, Anxiety F41.9 [place] [address] [place] [address] [id number] Mar, [address] [id number] Mar, Acute non-recurrent maxillary sinusitis J01.00 and Bronchitis J40 [address] [id number] Mar, CVA tenderness M54.9 ; Acute diffuse otitis externa of both ears H60.313 ; Non- intractable vomiting with nausea, unspecified vomiting type R11.2 ; Date of last menstrual period (LMP) unknown Z78.9 ; Anxiety F41.9 and Anhedonia R45.84 [place] [address] [place] [address] [id number] Mar, [facility] [address] [address] Mar, Right upper quadrant abdominal pain R10.11 [place] [address] [place] [address] [id number] Jan, Bronchitis J40 and Acute suppurative otitis media of left ear without spontaneous rupture of tympanic membrane, recurrence not specified H66.002 [place] [address] [place] [address] [id number] Sep, Insect bite, initial encounter W57.XXXA and Erythema L53.[address] [id number] May, Ear pain, right H92.01 [place] [address] [place] [address] [id number] Dec, Otitis externa 380.10 and Sore throat 462 [facility] [address] [address] Nov, Sports physical V70.3 ; Exercise counseling V65.41 and Dietary counseling V65.3 IMMUNIZATIONS No Known Immunizations SOCIAL HISTORY Never Assessed REASON FOR VISIT OB f/u PLAN OF CARE Activity Details Follow Up 3 Weeks Reason: VITAL SIGNS Height 67 in 2016-12-19 Weight 190 lbs 2016-12-19 Temperature 98 degrees Fahrenheit 2016-12-19 Heart Rate 88 bpm 2016-12-19 Respiratory Rate 16 2016-12-19 BMI 29.758 kg/m2 2016-12-19 Blood pressure systolic 138 mmHg 2016-12-19 Blood pressure diastolic 78 mmHg 2016-12-19 MEDICATIONS Medication Instructions Dosage Frequency Start Date End Date Duration Status Formula 28-0.8-235 MG Orally Once a day 1 capsule 24h Jul, 0 days Active RESULTS No Results PROCEDURES Procedure Date Ordered Result Body Site GLUCOSE TEST Dec 19, 2016 VENIPUNCT, ROUTINE* Dec 19, 2016 COMPLETE CBC W/AUTO DIFF WBC Dec 19, 2016 URINE-NO MICRO Dec 19, 2016 INSTRUCTIONS MEDICATIONS ADMINISTERED No Known Medications MEDICAL (GENERAL) HISTORY Type Description Date Medical History Mononucleosis Medical History Hearing Loss Medical History Rh negative state in antepartum period, first trimester Surgical History section
--- OUTSIDE RECORDS SUMMARY | 2018-09-10 11:20 | XMS REPORT | Continuity of Care Document ---
Author Organization Unknown Address Unknown Allergies Active Description Code Type Severity Reaction Onset Reported/Identified Relationship to Patient Clinical Status Yes No Known Drug Allergies [id number] Drug Allergy Unknown N/A 09/04/2018 Medications There is no data. 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 MUD CAR WORKER Ot R11.2 NAUSEA WITH VOMITING, UNSPECIFIED 04/05/2016 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 R MUD CAR WORKER Ot R10.11 RIGHT UPPER QUADRANT PAIN 04/05/2016 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 R MUD [employer] WORKER Ot R11.2 NAUSEA WITH VOMITING, UNSPECIFIED 08/24/2016 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 R MUD CAR WORKER Ot R10.11 RIGHT UPPER QUADRANT PAIN 08/24/2016 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 R MUD [employer] WORKER Ot R11.2 NAUSEA WITH VOMITING, UNSPECIFIED 09/12/2016 SAMUEL ASHLEY MD Ot Z36 ENCOUNTER FOR SCREENING OF MOT 09/12/2016 SAMUEL ASHLEY MD Ot Z3A.08 8 WEEKS GESTATION OF 09/26/2016 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 MUD [employer] WORKER Ot R10.11 RIGHT UPPER QUADRANT PAIN 09/26/2016 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 R MUD [employer] WORKER Ot R11.2 NAUSEA WITH VOMITING, UNSPECIFIED 09/26/2016 SAMUEL ASHLEY MD Ot Z36 ENCOUNTER FOR SCREENING OF MOT 09/26/2016 SAMUEL ASHLEY MD Ot Z3A.08 8 WEEKS GESTATION OF 10/05/2016 SAMUEL ASHLEY MD Ot Z36 ENCOUNTER FOR SCREENING OF MOT 10/05/2016 SAMUEL ASHLEY MD Ot Z3A.08 8 WEEKS GESTATION OF 10/05/2016 SAMUEL ASHLEY MD Ot O76 ABNLT IN HEART RATE AND RHYTHM COM 10/05/2016 SAMUEL ASHLEY MD Ot O76 ABNLT IN HEART RATE AND RHYTHM COM 10/20/2016 SAMUEL ASHLEY MD Ot Z36 ENCOUNTER FOR SCREENING OF MOT 10/20/2016 SAMUEL ASHLEY MD Ot Z3A.08 8 WEEKS GESTATION OF 10/20/2016 SAMUEL ASHLEY MD Ot O76 ABNLT IN HEART RATE AND RHYTHM COM 11/17/2016 SAMUEL ASHLEY MD Ot Z36 ENCOUNTER FOR SCREENING OF MOT 11/17/2016 SAMUEL ASHLEY MD Ot Z3A.19 19 WEEKS GESTATION OF 12/08/2016 SAMUEL ASHLEY MD Ot Z36 ENCOUNTER FOR SCREENING OF MOT 12/08/2016 SAMUEL ASHLEY MD Ot Z3A.19 19 WEEKS GESTATION OF 12/11/2016 SAMUEL ASHLEY MD Ot Z36 ENCOUNTER FOR SCREENING OF MOT 12/11/2016 SAMUEL ASHLEY MD Ot Z3A.22 22 WEEKS GESTATION OF 12/15/2016 SAMUEL ASHLEY MD Ot Z36 ENCOUNTER FOR SCREENING OF MOT 12/15/2016 SAMUEL ASHLEY MD Ot Z3A.22 22 WEEKS GESTATION OF 12/15/2016 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 CAR 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 Ot R10.11 RIGHT UPPER QUADRANT PAIN 12/15/2016 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 MUD [employer] WORKER Ot R11.2 NAUSEA WITH VOMITING, UNSPECIFIED 12/15/2016 SAMUEL ASHLEY MD Ot Z36 ENCOUNTER FOR SCREENING OF MOT 12/15/2016 SAMUEL ASHLEY MD Ot Z3A.08 8 WEEKS GESTATION OF 12/15/2016 SAMUEL ASHLEY MD Ot O76 ABNLT IN HEART RATE AND RHYTHM COM 12/15/2016 SAMUEL ASHLEY MD N Ot Z36 ENCOUNTER FOR SCREENING OF MOT 12/15/2016 SAMUEL ASHLEY MD Ot Z3A.19 19 WEEKS GESTATION OF 12/15/2016 SAMUEL ASHLEY MD Ot Z36 ENCOUNTER FOR SCREENING OF MOT 12/15/2016 SAMUEL ASHLEY MD Ot Z3A.22 22 WEEKS GESTATION OF 12/15/2016 SAMUEL ASHLEY MD, Ot36 ENCOUNTER FOR SCREENING OF MOT 12/15/2016 SAMUEL ASHLEY MD, Ot.22 22 WEEKS GESTATION OF 12/15/2016 SAMUEL ASHLEY MD, Ot ENCOUNTER FOR SCREENING OF MOT 12/15/2016 SAMUEL ASHLEY MD, Ot.22 22 WEEKS GESTATION OF 01/02/2017 SAMUEL ASHLEY MD, Ot36 ENCOUNTER FOR SCREENING OF MOT 01/02/2017 SAMUEL ASHLEY MD, Ot.22 22 WEEKS GESTATION OF 01/02/2017 SAMUEL ASHLEY MD, Ot O09.892 SUPERVISION OF OTHER HIGH RISK PREGNANCI 01/02/2017 SAMUEL ASHLEY MD, Ot3A.27 27 WEEKS GESTATION OF 01/05/2017 MANJU SULLIVAN DO Ot O14.93 UNSPECIFIED PRE-ECLAMPSIA, THIRD TRIMEST 01/05/2017 MANJU SULLIVAN DO, Ot Z3A.28 28 WEEKS GESTATION OF 01/17/2017 SAMUEL ASHLEY MD, Ot O13.3 GESTATIONAL HTN W/O SIGNIFICANT PROTEINU 01/17/2017 SAMUEL ASHLEY MD, Ot.30 30 WEEKS GESTATION OF 02/06/2017 SAMUEL ASHLEY MD, Ot O13.3 GESTATIONAL HTN W/O SIGNIFICANT PROTEINU 02/06/2017 SAMUEL ASHLEY MD, Ot.30 30 WEEKS GESTATION OF 02/19/2017 SAMUEL ASHLEY MD, Ot36 ENCOUNTER FOR SCREENING OF MOT 02/19/2017 SAMUEL ASHLEY MD, Ot.19 19 WEEKS GESTATION OF 02/19/2017 SAMUEL ASHLEY MD, Ot36 ENCOUNTER FOR SCREENING OF MOT 02/19/2017 SAMUEL ASHLEY MD, Ot.22 22 WEEKS GESTATION OF 02/19/2017 SAMUEL ASHLEY MD, Ot O13.3 GESTATIONAL HTN W/O SIGNIFICANT PROTEINU 02/19/2017 SAMUEL ASHLEY MD, Ot.30 30 WEEKS GESTATION OF 02/20/2017 SAMUEL ASHLEY MD, Ot O13.3 GESTATIONAL HTN W/O SIGNIFICANT PROTEINU 02/26/2017 SAMUEL ASHLEY MD Ot O13.3 GESTATIONAL HTN W/O SIGNIFICANT PROTEINU 03/05/2017 SAMUEL ASHLEY MD Ot O13.3 GESTATIONAL HTN W/O SIGNIFICANT PROTEINU 03/05/2017 SAMUEL ASHLEY MD Ot O13.3 GESTATIONAL HTN W/O SIGNIFICANT PROTEINU 03/12/2017 SAMUEL ASHLEY MD, Ot O13.3 GESTATIONAL HTN W/O SIGNIFICANT PROTEINU 03/19/2017 SAMUEL ASHLEY MD Ot O13.3 GESTATIONAL HTN W/O SIGNIFICANT PROTEINU 03/21/2017 SAMUEL ASHLEY MD Ot O42.02 FULL-TERM BRIAN ROM, ONSET LABOR WITHIN 2 03/21/2017 SAMUEL ASHLEY MD Ot Z3A.38 38 WEEKS GESTATION OF 03/26/2017 SAMUEL ASHLEY MD, Ot O13.3 GESTATIONAL HTN W/O SIGNIFICANT PROTEINU 03/29/2017 SAMUEL ASHLEY MD Ot D62 ACUTE POSTHEMORRHAGIC ANEMIA 03/29/2017 SAMUEL ASHLEY MD, Ot O13.3 GESTATIONAL HTN W/O SIGNIFICANT PROTEINU 03/29/2017 SAMUEL ASHLEY MD Ot O62.2 OTHER UTERINE INERTIA 03/29/2017 SAMUEL ASHLEY MD Ot O69.81X0 LABOR AND DEL COMP BY CORD AROUND NECK, 03/29/2017 SAMUEL ASHLEY MD Ot O76 ABNLT IN HEART RATE AND RHYTHM COM 03/29/2017 SAMUEL ASHLEY MD Ot O99.03 ANEMIA COMPLICATING THE PUERPERIUM 03/29/2017 SAMUEL ASHLEY MD Ot Z37.0 SINGLE LIVE 03/29/2017 SAMUEL ASHLEY MD, Ot Z3A.39 39 WEEKS GESTATION OF 03/30/2017 SAMUEL ASHLEY MD, Ot O13.3 GESTATIONAL HTN W/O SIGNIFICANT PROTEINU 04/08/2017 PRICE DOWNEY MD Ot O91.13 ABSCESS OF BREAST ASSOCIATED WITH LACTAT 04/08/2017 PRICE DOWNEY MD Ot Z87.891 PERSONAL HISTORY OF NICOTINE DEPENDENCE 04/08/2017 PRICE DOWNEY MD Ot Z98.890 OTHER SPECIFIED POSTPROCEDURAL STATES 05/20/2017 SAMUEL ASHLEY MD, Ot O13.3 GESTATIONAL HTN W/O SIGNIFICANT PROTEINU 05/21/2017 SAMUEL ASHLEY MD, Ot Z36 ENCOUNTER FOR SCREENING OF MOT 05/21/2017 SAMUEL ASHLEY MD, Ot Z3A.19 19 WEEKS GESTATION OF 05/21/2017 SAMUEL ASHLEY MD Ot Z36 ENCOUNTER FOR SCREENING OF MOT 05/21/2017 SAMUEL ASHLEY MD, Ot Z3A.22 22 WEEKS GESTATION OF 05/21/2017 SAMUEL ASHLEY MD, Ot O13.3 GESTATIONAL HTN W/O SIGNIFICANT PROTEINU 05/21/2017 SAMUEL ASHLEY MD, Ot.30 30 WEEKS GESTATION OF 05/21/2017 SAMUEL ASHLEY MD, Ot O13.3 GESTATIONAL HTN W/O SIGNIFICANT PROTEINU 05/21/2017 SAMUEL ASHLEY MD, Ot O13.3 GESTATIONAL HTN W/O SIGNIFICANT PROTEINU 05/26/2017 SAMUEL ASHLEY MD, Ot O13.3 GESTATIONAL HTN W/O SIGNIFICANT PROTEINU 05/29/2017 SAMUEL ASHLEY MD Ot Z36 ENCOUNTER FOR SCREENING OF MOT 05/29/2017 SAMUEL ASHLEY MD, Ot.19 19 WEEKS GESTATION OF 07/05/2017 SAMUEL ASHLEY MD Ot Z36 ENCOUNTER FOR SCREENING OF MOT 07/05/2017 SAMUEL ASHLEY MD, Ot.19 19 WEEKS GESTATION OF 07/05/2017 SAMUEL ASHLEY MD, Ot Z36 ENCOUNTER FOR SCREENING OF MOT 07/05/2017 SAMUEL ASHLEY MD, Ot.22 22 WEEKS GESTATION OF 07/05/2017 SAMUEL ASHLEY MD, Ot O13.3 GESTATIONAL HTN W/O SIGNIFICANT PROTEINU 07/05/2017 SAMUEL ASHLEY MD, Ot3A.30 30 WEEKS GESTATION OF 07/05/2017 SAMUEL ASHLEY MD, Ot O13.3 GESTATIONAL HTN W/O SIGNIFICANT PROTEINU 11/12/2017 SAMUEL ASHLEY MD Ot Z36 ENCOUNTER FOR SCREENING OF MOT 11/12/2017 SAMUEL ASHLEY MD, Ot.22 22 WEEKS GESTATION OF 11/12/2017 SAMUEL ASHLEY MD, Ot O13.3 GESTATIONAL HTN W/O SIGNIFICANT PROTEINU 11/12/2017 SAMUEL ASHLEY MD, Ot Z3A.30 30 WEEKS GESTATION OF 11/12/2017 SAMUEL ASHLEY MD, Ot O13.3 GESTATIONAL HTN W/O SIGNIFICANT PROTEINU 11/12/2017 SAMUEL ASHLEY MD Ot Z36 ENCOUNTER FOR SCREENING OF MOT 11/12/2017 SAMUEL ASHLEY MD, Ot Z3A.19 19 WEEKS GESTATION OF 11/12/2017 SAMUEL ASHLEY MD, Ot Z36 ENCOUNTER FOR SCREENING OF MOT 11/12/2017 SAMUEL ASHLEY MD, Ot.22 22 WEEKS GESTATION OF 11/12/2017 SAMUEL ASHLEY MD, Ot O13.3 GESTATIONAL HTN W/O SIGNIFICANT PROTEINU 11/12/2017 SAMUEL ASHLEY MD, Ot3A.30 30 WEEKS GESTATION OF 11/12/2017 SAMUEL ASHLEY MD, Ot O13.3 GESTATIONAL HTN W/O SIGNIFICANT PROTEINU 11/12/2017 DASHAWN DE LUNA L Ot R10.11 RIGHT UPPER QUADRANT PAIN 01/17/2018 SAMUEL ASHLEY MD, Ot O13.3 GESTATIONAL HTN W/O SIGNIFICANT PROTEINU 01/17/2018 SAMUEL ASHLEY MD, Ot Z3A.30 30 WEEKS GESTATION OF 01/17/2018 SAMUEL ASHLEY MD Ot Z36 ENCOUNTER FOR SCREENING OF MOT 01/17/2018 SAMUEL ASHLEY MD, Ot Z3A.22 22 WEEKS GESTATION OF 01/17/2018 SAMUEL ASHLEY MD Ot Z36 ENCOUNTER FOR SCREENING OF MOT 01/17/2018 SAMUEL ASHLEY MD, Ot3A.19 19 WEEKS GESTATION OF 01/17/2018 CALIXTO DASHAWN L Ot R10.11 RIGHT UPPER QUADRANT PAIN 01/31/2018 SAMUEL ASHLEY MD Ot Z36 ENCOUNTER FOR SCREENING OF MOT 01/31/2018 SAMUEL ASHLEY MD, Ot Z3A.22 22 WEEKS GESTATION OF 01/31/2018 SAMUEL ASHLEY MD, Ot O13.3 GESTATIONAL HTN W/O SIGNIFICANT PROTEINU 01/31/2018 SAMUEL ASHLEY MD Ot Z3A.30 30 WEEKS GESTATION OF 01/31/2018 DASHAWN DE LUNA Ot R10.11 RIGHT UPPER QUADRANT PAIN 04/11/2018 SAMUEL ASHLEY MD Ot Z36 ENCOUNTER FOR SCREENING OF MOT 04/11/2018 SAMUEL ASHLEY MD Ot Z3A.19 19 WEEKS GESTATION OF 04/11/2018 SAMUEL ASHLEY MD Ot Z36 ENCOUNTER FOR SCREENING OF MOT 04/11/2018 SAMUEL ASHLEY MD, Ot Z3A.22 22 WEEKS GESTATION OF 04/11/2018 SAMUEL ASHLEY MD Ot O13.3 GESTATIONAL HTN W/O SIGNIFICANT PROTEINU 04/11/2018 SAMUEL ASHLEY MD Ot Z3A.30 30 WEEKS GESTATION OF 04/11/2018 DASHAWN DE LUNA L Ot R10.11 RIGHT UPPER QUADRANT PAIN 05/03/2018 FENECH DO, NEY S Ot Z36.89 ENCOUNTER FOR OTHER SPECIFIED 05/03/2018 FENECH DO, NEY S Ot Z3A.20 20 WEEKS GESTATION OF 05/15/2018 FENECH DO, NEY S Ot Z36.89 ENCOUNTER FOR OTHER SPECIFIED 05/15/2018 FENECH DO, NEY S Ot Z3A.20 20 WEEKS GESTATION OF 06/19/2018 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 MUD CAR WORKER Ot R10.11 RIGHT UPPER QUADRANT PAIN 06/19/2018 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 MUD [employer] WORKER Ot R11.2 NAUSEA WITH VOMITING, UNSPECIFIED 06/19/2018 SAMUEL ASHLEY MD Ot Z36 ENCOUNTER FOR SCREENING OF MOT 06/19/2018 SAMUEL ASHLEY MD Ot Z3A.08 8 WEEKS GESTATION OF 06/19/2018 SAMUEL ASHLEY MD, Ot O76 ABNLT IN HEART RATE AND RHYTHM COM 06/19/2018 SAMUEL ASHLEY MD Ot Z36 ENCOUNTER FOR SCREENING OF MOT 06/19/2018 SAMUEL ASHLEY MD Ot Z3A.19 19 WEEKS GESTATION OF 06/19/2018 SAMUEL ASHLEY MD Ot Z36 ENCOUNTER FOR SCREENING OF MOT 06/19/2018 DION MD, SAMUEL N Ot Z3A.22 22 WEEKS GESTATION OF 06/19/2018 SAMUEL ASHLEY MD, Ot O13.3 GESTATIONAL HTN W/O SIGNIFICANT PROTEINU 06/19/2018 SAMUEL ASHLEY MD, Ot Z3A.30 30 WEEKS GESTATION OF 06/19/2018 SAMUEL ASHLEY MD, Ot O13.3 GESTATIONAL HTN W/O SIGNIFICANT PROTEINU 06/19/2018 ERONRAFFEBRENDA-ORALIA, DASHAWN L Ot R10.11 RIGHT UPPER QUADRANT PAIN 06/19/2018 FENECH DO, NEY S Ot Z36.89 ENCOUNTER FOR OTHER SPECIFIED 06/19/2018 FENECH DO, NEY S Ot Z3A.20 20 WEEKS GESTATION OF 06/19/2018 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 MUD CAR WORKER Ot R10.11 RIGHT UPPER QUADRANT PAIN 06/19/2018 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 MUD CAR WORKER Ot R11.2 NAUSEA WITH VOMITING, UNSPECIFIED 06/19/2018 SAMUEL ASHLEY MD Ot Z36 ENCOUNTER FOR SCREENING OF MOT 06/19/2018 SAMUEL ASHLEY MD, Ot Z3A.08 8 WEEKS GESTATION OF 06/19/2018 SAMUEL ASHLEY MD, Ot O76 ABNLT IN HEART RATE AND RHYTHM COM 06/19/2018 SAMUEL ASHLEY MD Ot Z36 ENCOUNTER FOR SCREENING OF MOT 06/19/2018 SAMUEL ASHLEY MD, Ot Z3A.19 19 WEEKS GESTATION OF 06/19/2018 SAMUEL ASHLEY MD Ot Z36 ENCOUNTER FOR SCREENING OF MOT 06/19/2018 SAMUEL ASHLEY MD, Ot Z3A.22 22 WEEKS GESTATION OF 06/19/2018 SAMUEL ASHLEY MD, Ot O13.3 GESTATIONAL HTN W/O SIGNIFICANT PROTEINU 06/19/2018 SAMUEL ASHLEY MD, Ot Z3A.30 30 WEEKS GESTATION OF 06/19/2018 SAMUEL ASHLEY MD, Ot O13.3 GESTATIONAL HTN W/O SIGNIFICANT PROTEINU 06/19/2018 GARRETTFFEBRENDA-ORALIA, DASHAWN L Ot R10.11 RIGHT UPPER QUADRANT PAIN 06/19/2018 FENECH DO, NEY S Ot Z36.89 ENCOUNTER FOR OTHER SPECIFIED 06/19/2018 FENECH DO, NEY S Ot Z3A.20 20 WEEKS GESTATION OF 06/25/2018 SAMUEL ASHLEY MD Ot Z36 ENCOUNTER FOR SCREENING OF MOT 06/25/2018 SAMUEL ASHLEY MD Ot Z3A.19 19 WEEKS GESTATION OF 06/25/2018 SAMUEL ASHLEY MD Ot Z36 ENCOUNTER FOR SCREENING OF MOT 06/25/2018 SAMUEL ASHLEY MD Ot Z3A.22 22 WEEKS GESTATION OF 06/25/2018 SAMUEL ASHLEY MD Ot O13.3 GESTATIONAL HTN W/O SIGNIFICANT PROTEINU 06/25/2018 SAMUEL ASHLEY MD Ot Z3A.30 30 WEEKS GESTATION OF 06/25/2018 GARRETTFFEADINA DASHAWN L Ot R10.11 RIGHT UPPER QUADRANT PAIN 06/25/2018 FENECH DO, NEY S Ot Z36.89 ENCOUNTER FOR OTHER SPECIFIED 06/25/2018 FENECH DO, ENY S Ot Z3A.20 20 WEEKS GESTATION OF 06/25/2018 SAMUEL ASHLEY MD Ot Z36 ENCOUNTER FOR SCREENING OF MOT 06/25/2018 SAMUEL ASHLEY MD Ot Z3A.19 19 WEEKS GESTATION OF 06/25/2018 SAMUEL ASHLEY MD Ot Z36 ENCOUNTER FOR SCREENING OF MOT 06/25/2018 SAMUEL ASHLEY MD Ot Z3A.22 22 WEEKS GESTATION OF 06/25/2018 SAMUEL ASHLEY MD Ot O13.3 GESTATIONAL HTN W/O SIGNIFICANT PROTEINU 06/25/2018 SAMUEL ASHLEY MD Ot Z3A.30 30 WEEKS GESTATION OF 06/25/2018 MANDY DE LUNAHA L Ot R10.11 RIGHT UPPER QUADRANT PAIN 06/25/2018 FENECH DO, NEY S Ot Z36.89 ENCOUNTER FOR OTHER SPECIFIED 06/25/2018 FENECH DO, NEY S Ot Z3A.20 20 WEEKS GESTATION OF 06/25/2018 SU MORALES MD Ot O36.8130 DECREASED MOVEMENTS, THIRD TRIMEST 06/25/2018 SU MORALES MD Ot Z3A.28 28 WEEKS GESTATION OF 06/27/2018 SU MORALES MD Ot O36.8130 DECREASED MOVEMENTS, THIRD TRIMEST 06/27/2018 CARMEN MELGAR, SU Heredia Ot Z3A.28 28 WEEKS GESTATION OF 07/23/2018 FENECH DO, NEY S Ot Z36.89 ENCOUNTER FOR OTHER SPECIFIED 07/23/2018 FENECH DO, NEY S Ot Z3A.20 20 WEEKS GESTATION OF 08/19/2018 SEALS DO, PAYAM E Ot O47.03 FALSE LABOR BEFORE 37 COMPLETED WEEKS OF 08/19/2018 SEALS DO, PAYAM E Ot Z3A.36 36 WEEKS GESTATION OF 08/22/2018 SEALS DO, PAYAM E Ot O47.03 FALSE LABOR BEFORE 37 COMPLETED WEEKS OF 08/22/2018 SEALS DO, PAYAM E Ot Z3A.36 36 WEEKS GESTATION OF 08/27/2018 SAMUEL ASHLEY MD, Ot Z36 ENCOUNTER FOR SCREENING OF MOT 08/27/2018 SAMUEL ASHLEY MD, Ot Z3A.19 19 WEEKS GESTATION OF 08/27/2018 SAMUEL ASHLEY MD, Ot Z36 ENCOUNTER FOR SCREENING OF MOT 08/27/2018 SAMUEL ASHLEY MD, Ot3A.22 22 WEEKS GESTATION OF 08/27/2018 SAMUEL ASHLEY MD, Ot O13.3 GESTATIONAL HTN W/O SIGNIFICANT PROTEINU 08/27/2018 SAMUEL ASHLEY MD, Ot Z3A.30 30 WEEKS GESTATION OF 08/27/2018 DASHAWN DE LUNA Ot R10.11 RIGHT UPPER QUADRANT PAIN 08/27/2018 FENECH DO, NEY S Ot Z36.89 ENCOUNTER FOR OTHER SPECIFIED 08/27/2018 FENECH DO, NEY S Ot Z3A.20 20 WEEKS GESTATION OF 08/28/2018 FENECH DO, NEY S Ot Z36.89 ENCOUNTER FOR OTHER SPECIFIED 08/28/2018 FENECH DO, NEY S Ot Z3A.20 20 WEEKS GESTATION OF 09/04/2018 SAMUEL ASHLEY MD Ot Z36 ENCOUNTER FOR SCREENING OF MOT 09/04/2018 SAMUEL ASHLEY MD, Ot Z3A.08 8 WEEKS GESTATION OF 09/04/2018 SAMUEL ASHLEY MD, Ot O76 ABNLT IN HEART RATE AND RHYTHM COM 09/04/2018 SAMUEL ASHLEY MD, Ot O13.3 GESTATIONAL HTN W/O SIGNIFICANT PROTEINU 09/04/2018 SAMUEL ASHLEY MD, Ot Z36 ENCOUNTER FOR SCREENING OF MOT 09/04/2018 SAMUEL ASHLEY MD, Ot Z3A.19 19 WEEKS GESTATION OF 09/04/2018 SAMUEL ASHLEY MD, Ot Z36 ENCOUNTER FOR SCREENING OF MOT 09/04/2018 SAMUEL ASHLEY MD, Ot Z3A.22 22 WEEKS GESTATION OF 09/04/2018 SAMUEL ASHLEY MD, Ot O13.3 GESTATIONAL HTN W/O SIGNIFICANT PROTEINU 09/04/2018 SAMUEL ASHLEY MD, Ot Z3A.30 30 WEEKS GESTATION OF 09/04/2018 DASHAWN DE LUNA Ot R10.11 RIGHT UPPER QUADRANT PAIN 09/04/2018 DAVIDECH NEY BHATIA S Ot Z36.89 ENCOUNTER FOR OTHER SPECIFIED 09/04/2018 DAVIDECH DONEY S Ot Z3A.20 20 WEEKS GESTATION OF 09/04/2018 DAVIDECH DONEY S Ot O99.89 OTH DISEASES AND CONDITIONS COMPL PREG/C 09/04/2018 FENECH DONEY S Ot Z3A.37 37 WEEKS GESTATION OF 09/06/2018 DAVIDECH DO NEY S Ot O99.89 OTH DISEASES AND CONDITIONS COMPL PREG/C 09/06/2018 DAVIDECH DONEY S Ot Z3A.37 37 WEEKS GESTATION OF 09/06/2018 DAVDIECH NEY BHATIA S Ot Z01.818 ENCOUNTER FOR OTHER PREPROCEDURAL EXAMIN Procedures Code Description Performed By Performed On [id number] EXTRACTION OF POC, LOW CERVICAL, OPEN AP 03/27/2017 [id number] INTRODUCE OF ADHESION BARRIER INTO FEM R 03/27/2017 Results Test Result Range Complete blood count (CBC) with automated white blood cell (WBC) differential - 01/02/17 13:00 Blood leukocytes automated count (number/volume) 10.7 10*3/uL 4.3-11.0 Blood erythrocytes automated count (number/volume) 4.16 10*6/uL 4.35-5.85 Venous blood hemoglobin measurement (mass/volume) 11.9 g/dL 11.5-16.0 Blood hematocrit (volume fraction) 34 % 35-52 Automated erythrocyte mean corpuscular volume 83 [foz_us] 80-99 Automated erythrocyte mean corpuscular hemoglobin (mass per erythrocyte) 29 pg 25-34 Automated erythrocyte mean corpuscular hemoglobin concentration measurement (mass/volume) 35 g/dL 32-36 Automated erythrocyte distribution width ratio 13.0 % 10.0- 14.5 Automated blood platelet count (count/volume) 204 10*3/uL 130-400 Automated blood platelet mean volume measurement 11.4 [foz_us] 7.4-10.4 Automated blood neutrophils/100 leukocytes 76 % 42-75 Automated blood lymphocytes/100 leukocytes 14 % 12-44 Blood monocytes/100 leukocytes 9 % 0-12 Automated blood eosinophils/100 leukocytes 1 % 0-10 Automated blood basophils/100 leukocytes 0 % 0-10 Blood neutrophils automated count (number/volume) 8.2 10*3 1.8-7.8 Blood lymphocytes automated count (number/volume) 1.5 10*3 1.0-4.0 Blood monocytes automated count (number/volume) 1.0 10*3 0.0- 1.0 Automated eosinophil count 0.1 10*3/uL 0.0-0.3 Automated blood basophil count (count/volume) 0.0 10*3/uL 0.0-0.1 Urine protein/creatinine mass ratio - 01/02/17 13:00 Urine protein measurement (mass/volume) < mg/dL 6-12 Urine creatinine measurement (mass/volume) 9 mg/dL 30-125 Urine protein/creatinine mass ratio [facility] Comprehensive metabolic panel - 01/02/17 13:00 Serum or plasma sodium measurement (moles/volume) 136 mmol/L 135-145 Serum or plasma potassium measurement (moles/volume) 3.7 mmol/L 3.6-5.0 Serum or plasma chloride measurement (moles/volume) 108 mmol/L 98-107 Carbon dioxide 21 mmol/L 21-32 Serum or plasma anion gap determination (moles/volume) 7 mmol/L 5-14 Serum or plasma urea nitrogen measurement (mass/volume) 3 mg/dL 7-18 Serum or plasma creatinine measurement (mass/volume) 0.55 mg/dL 0.60-1.30 Serum or plasma urea nitrogen/creatinine mass ratio 5 NRG Serum or plasma creatinine measurement with calculation of estimated glomerular filtration rate > NRG Serum or plasma glucose measurement (mass/volume) 89 mg/dL 70-105 Serum or plasma calcium measurement (mass/volume) 8.7 mg/dL 8.5-10.1 Serum or plasma total bilirubin measurement (mass/volume) 0.3 mg/dL 0.1-1.0 Serum or plasma alkaline phosphatase measurement (enzymatic activity/volume) 84 U/L 60-350 Serum or plasma aspartate aminotransferase measurement (enzymatic activity/volume) 10 U/L 5-34 Serum or plasma alanine aminotransferase measurement (enzymatic activity/volume) 14 U/L 0-55 Serum or plasma protein measurement (mass/volume) 6.0 g/dL 6.4-8.2 Serum or plasma albumin measurement (mass/volume) 3.5 g/dL 3.2-4.5 Serum or plasma uric acid measurement (mass/volume) - 01/02/17 13:00 Serum or plasma uric acid measurement (mass/volume) 3.0 mg/dL 2.6-7.2 Lactate dehydrogenase 1 [enzymatic activity/volume] in serum or plasma - 01/02/17 13:00 Lactate dehydrogenase 1 [enzymatic activity/volume] in serum or plasma 147 U/L 125-220 Comprehensive metabolic panel - 01/05/17 19:40 Serum or plasma sodium measurement (moles/volume) 137 mmol/L 135-145 Serum or plasma potassium measurement (moles/volume) 3.8 mmol/L 3.6-5.0 Serum or plasma chloride measurement (moles/volume) 106 mmol/L 98-107 Carbon dioxide 21 mmol/L 21-32 Serum or plasma anion gap determination (moles/volume) 10 mmol/L 5-14 Serum or plasma urea nitrogen measurement (mass/volume) 7 mg/dL 7-18 Serum or plasma creatinine measurement (mass/volume) 0.60 mg/dL 0.60-1.30 Serum or plasma urea nitrogen/creatinine mass ratio 12 NRG Serum or plasma creatinine measurement with calculation of estimated glomerular filtration rate > NRG Serum or plasma glucose measurement (mass/volume) 82 mg/dL 70-105 Serum or plasma calcium measurement (mass/volume) 8.6 mg/dL 8.5-10.1 Serum or plasma total bilirubin measurement (mass/volume) 0.3 mg/dL 0.1-1.0 Serum or plasma alkaline phosphatase measurement (enzymatic activity/volume) 94 U/L 60-350 Serum or plasma aspartate aminotransferase measurement (enzymatic activity/volume) 17 U/L 5-34 Serum or plasma alanine aminotransferase measurement (enzymatic activity/volume) 20 U/L 0-55 Serum or plasma protein measurement (mass/volume) 7.0 g/dL 6.4-8.2 Serum or plasma albumin measurement (mass/volume) 3.6 g/dL 3.2-4.5 Serum or plasma uric acid measurement (mass/volume) - 01/05/17 19:40 Serum or plasma uric acid measurement (mass/volume) 3.5 mg/dL 2.6-7.2 Lactate dehydrogenase 1 [enzymatic activity/volume] in serum or plasma - 01/05/17 19:40 Lactate dehydrogenase 1 [enzymatic activity/volume] in serum or plasma 142 U/L 125-220 Complete blood count (CBC) with automated white blood cell (WBC) differential - 01/05/17 19:40 Blood leukocytes automated count (number/volume) 12.2 10*3/uL 4.3-11.0 Blood erythrocytes automated count (number/volume) 4.32 10*6/uL 4.35-5.85 Venous blood hemoglobin measurement (mass/volume) 12.3 g/dL 11.5-16.0 Blood hematocrit (volume fraction) 36 % 35-52 Automated erythrocyte mean corpuscular volume 83 [foz_us] 80-99 Automated erythrocyte mean corpuscular hemoglobin (mass per erythrocyte) 29 pg 25-34 Automated erythrocyte mean corpuscular hemoglobin concentration measurement (mass/volume) 34 g/dL 32-36 Automated erythrocyte distribution width ratio 12.9 % 10.0- 14.5 Automated blood platelet count (count/volume) 225 10*3/uL 130-400 Automated blood platelet mean volume measurement 11.2 [foz_us] 7.4-10.4 Automated blood neutrophils/100 leukocytes 81 % 42-75 Automated blood lymphocytes/100 leukocytes 12 % 12-44 Blood monocytes/100 leukocytes 7 % 0-12 Automated blood eosinophils/100 leukocytes 1 % 0-10 Automated blood basophils/100 leukocytes 0 % 0-10 Blood neutrophils automated count (number/volume) 9.8 10*3 1.8-7.8 Blood lymphocytes automated count (number/volume) 1.4 10*3 1.0-4.0 Blood monocytes automated count (number/volume) 0.9 10*3 0.0- 1.0 Automated eosinophil count 0.1 10*3/uL 0.0-0.3 Automated blood basophil count (count/volume) 0.0 10*3/uL 0.0-0.1 Urine protein/creatinine mass ratio - 03/20/17 12:30 Urine protein measurement (mass/volume) 26 mg/dL 6-12 Urine creatinine measurement (mass/volume) 120 mg/dL 30-125 Urine protein/creatinine mass ratio 0.22 [facility] Complete blood count (CBC) with automated white blood cell (WBC) differential - 03/20/17 12:43 Blood leukocytes automated count (number/volume) 9.1 10*3/uL 4.3-11.0 Blood erythrocytes automated count (number/volume) 4.18 10*6/uL 4.35-5.85 Venous blood hemoglobin measurement (mass/volume) 11.4 g/dL 11.5-16.0 Blood hematocrit (volume fraction) 34 % 35-52 Automated erythrocyte mean corpuscular volume 80 [foz_us] 80-99 Automated erythrocyte mean corpuscular hemoglobin (mass per erythrocyte) 27 pg 25-34 Automated erythrocyte mean corpuscular hemoglobin concentration measurement (mass/volume) 34 g/dL 32-36 Automated erythrocyte distribution width ratio 12.8 % 10.0- 14.5 Automated blood platelet count (count/volume) 223 10*3/uL 130-400 Automated blood platelet mean volume measurement 11.8 [foz_us] 7.4-10.4 Automated blood neutrophils/100 leukocytes 80 % 42-75 Automated blood lymphocytes/100 leukocytes 14 % 12-44 Blood monocytes/100 leukocytes 6 % 0-12 Automated blood eosinophils/100 leukocytes 0 % 0-10 Automated blood basophils/100 leukocytes 0 % 0-10 Blood neutrophils automated count (number/volume) 7.2 10*3 1.8-7.8 Blood lymphocytes automated count (number/volume) 1.3 10*3 1.0-4.0 Blood monocytes automated count (number/volume) 0.6 10*3 0.0- 1.0 Automated eosinophil count 0.0 10*3/uL 0.0-0.3 Automated blood basophil count (count/volume) 0.0 10*3/uL 0.0-0.1 [id number] - 03/20/17 12:43 [id number] SPECIMEN AVAILABLE [facility] Comprehensive metabolic panel - 03/20/17 12:43 Serum or plasma sodium measurement (moles/volume) 137 mmol/L 135-145 Serum or plasma potassium measurement (moles/volume) 3.6 mmol/L 3.6-5.0 Serum or plasma chloride measurement (moles/volume) 108 mmol/L 98-107 Carbon dioxide 21 mmol/L 21-32 Serum or plasma anion gap determination (moles/volume) 8 mmol/L 5-14 Serum or plasma urea nitrogen measurement (mass/volume) 6 mg/dL 7-18 Serum or plasma creatinine measurement (mass/volume) 0.58 mg/dL 0.60-1.30 Serum or plasma urea nitrogen/creatinine mass ratio 10 NRG Serum or plasma creatinine measurement with calculation of estimated glomerular filtration rate > NRG Serum or plasma glucose measurement (mass/volume) 76 mg/dL 70-105 Serum or plasma calcium measurement (mass/volume) 8.3 mg/dL 8.5-10.1 Serum or plasma total bilirubin measurement (mass/volume) 0.5 mg/dL 0.1-1.0 Serum or plasma alkaline phosphatase measurement (enzymatic activity/volume) 162 U/L 40-136 Serum or plasma aspartate aminotransferase measurement (enzymatic activity/volume) 16 U/L 5-34 Serum or plasma alanine aminotransferase measurement (enzymatic activity/volume) 23 U/L 0-55 Serum or plasma protein measurement (mass/volume) 6.3 g/dL 6.4-8.2 Serum or plasma albumin measurement (mass/volume) 3.0 g/dL 3.2-4.5 Serum or plasma uric acid measurement (mass/volume) - 03/20/17 12:43 Serum or plasma uric acid measurement (mass/volume) 4.9 mg/dL 2.6-7.2 Lactate dehydrogenase 1 [enzymatic activity/volume] in serum or plasma - 03/20/17 12:43 Lactate dehydrogenase 1 [enzymatic activity/volume] in serum or plasma 144 U/L 125-220 Complete blood count (CBC) with automated white blood cell (WBC) differential - 03/26/17 20:25 Blood leukocytes automated count (number/volume) 9.8 10*3/uL 4.3-11.0 Blood erythrocytes automated count (number/volume) 4.16 10*6/uL 4.35-5.85 Venous blood hemoglobin measurement (mass/volume) 11.2 g/dL 11.5-16.0 Blood hematocrit (volume fraction) 33 % 35-52 Automated erythrocyte mean corpuscular volume 80 [foz_us] 80-99 Automated erythrocyte mean corpuscular hemoglobin (mass per erythrocyte) 27 pg 25-34 Automated erythrocyte mean corpuscular hemoglobin concentration measurement (mass/volume) 34 g/dL 32-36 Automated erythrocyte distribution width ratio 12.8 % 10.0- 14.5 Automated blood platelet count (count/volume) 217 10*3/uL 130-400 Automated blood platelet mean volume measurement 11.7 [foz_us] 7.4-10.4 Automated blood neutrophils/100 leukocytes 82 % 42-75 Automated blood lymphocytes/100 leukocytes 11 % 12-44 Blood monocytes/100 leukocytes 7 % 0-12 Automated blood eosinophils/100 leukocytes 0 % 0-10 Automated blood basophils/100 leukocytes 0 % 0-10 Blood neutrophils automated count (number/volume) 8.0 10*3 1.8-7.8 Blood lymphocytes automated count (number/volume) 1.0 10*3 1.0-4.0 Blood monocytes automated count (number/volume) 0.7 10*3 0.0- 1.0 Automated eosinophil count 0.0 10*3/uL 0.0-0.3 Automated blood basophil count (count/volume) 0.0 10*3/uL 0.0-0.1 Blood type T Indirect antibody screen panel - 03/26/17 20:25 ABO+Rh group AN NR Transfusion band number [id number] [facility] Blood group antibody screen NEGATIVE [facility] Complete blood count (CBC) with automated white blood cell (WBC) differential - 03/28/17 06:49 Blood leukocytes automated count (number/volume) 15.5 10*3/uL 4.3-11.0 Blood erythrocytes automated count (number/volume) 3.48 10*6/uL 4.35-5.85 Venous blood hemoglobin measurement (mass/volume) 9.5 g/dL 11.5-16.0 Blood hematocrit (volume fraction) 29 % 35-52 Automated erythrocyte mean corpuscular volume 82 [foz_us] 80-99 Automated erythrocyte mean corpuscular hemoglobin (mass per erythrocyte) 27 pg 25-34 Automated erythrocyte mean corpuscular hemoglobin concentration measurement (mass/volume) 33 g/dL 32-36 Automated erythrocyte distribution width ratio 13.1 % 10.0- 14.5 Automated blood platelet count (count/volume) 154 10*3/uL 130-400 Automated blood platelet mean volume measurement 12.0 [foz_us] 7.4-10.4 Automated blood neutrophils/100 leukocytes 81 % 42-75 Automated blood lymphocytes/100 leukocytes 8 % 12-44 Blood monocytes/100 leukocytes 10 % 0-12 Automated blood eosinophils/100 leukocytes 0 % 0-10 Automated blood basophils/100 leukocytes 0 % 0-10 Blood neutrophils automated count (number/volume) 12.6 10*3 1.8-7.8 Blood lymphocytes automated count (number/volume) 1.3 10*3 1.0-4.0 Blood monocytes automated count (number/volume) 1.6 10*3 0.0- 1.0 Automated eosinophil count 0.0 10*3/uL 0.0-0.3 Automated blood basophil count (count/volume) 0.0 10*3/uL 0.0-0.1 Complete blood count (CBC) with automated white blood cell (WBC) differential - 03/29/17 06:47 Blood leukocytes automated count (number/volume) 12.1 10*3/uL 4.3-11.0 Blood erythrocytes automated count (number/volume) 3.69 10*6/uL 4.35-5.85 Venous blood hemoglobin measurement (mass/volume) 10.0 g/dL 11.5-16.0 Blood hematocrit (volume fraction) 30 % 35-52 Automated erythrocyte mean corpuscular volume 82 [foz_us] 80-99 Automated erythrocyte mean corpuscular hemoglobin (mass per erythrocyte) 27 pg 25-34 Automated erythrocyte mean corpuscular hemoglobin concentration measurement (mass/volume) 33 g/dL 32-36 Automated erythrocyte distribution width ratio 13.4 % 10.0- 14.5 Automated blood platelet count (count/volume) 183 10*3/uL 130-400 Automated blood platelet mean volume measurement 11.8 [foz_us] 7.4-10.4 Automated blood neutrophils/100 leukocytes 80 % 42-75 Automated blood lymphocytes/100 leukocytes 13 % 12-44 Blood monocytes/100 leukocytes 7 % 0-12 Automated blood eosinophils/100 leukocytes 1 % 0-10 Automated blood basophils/100 leukocytes 0 % 0-10 Blood neutrophils automated count (number/volume) 9.7 10*3 1.8-7.8 Blood lymphocytes automated count (number/volume) 1.5 10*3 1.0-4.0 Blood monocytes automated count (number/volume) 0.8 10*3 0.0- 1.0 Automated eosinophil count 0.1 10*3/uL 0.0-0.3 Automated blood basophil count (count/volume) 0.0 10*3/uL 0.0-0.1 Complete blood count (CBC) with automated white blood cell (WBC) differential - 04/08/17 12:22 Blood leukocytes automated count (number/volume) 10.3 10*3/uL 4.3-11.0 Blood erythrocytes automated count (number/volume) 4.24 10*6/uL 4.35-5.85 Venous blood hemoglobin measurement (mass/volume) 11.2 g/dL 11.5-16.0 Blood hematocrit (volume fraction) 34 % 35-52 Automated erythrocyte mean corpuscular volume 79 [foz_us] 80-99 Automated erythrocyte mean corpuscular hemoglobin (mass per erythrocyte) 26 pg 25-34 Automated erythrocyte mean corpuscular hemoglobin concentration measurement (mass/volume) 33 g/dL 32-36 Automated erythrocyte distribution width ratio 12.8 % 10.0- 14.5 Automated blood platelet count (count/volume) 238 10*3/uL 130-400 Automated blood platelet mean volume measurement 10.5 [foz_us] 7.4-10.4 Automated blood neutrophils/100 leukocytes 91 % 42-75 Automated blood lymphocytes/100 leukocytes 5 % 12-44 Blood monocytes/100 leukocytes 3 % 0-12 Automated blood eosinophils/100 leukocytes 1 % 0-10 Automated blood basophils/100 leukocytes 0 % 0-10 Blood neutrophils automated count (number/volume) 9.3 10*3 1.8-7.8 Blood lymphocytes automated count (number/volume) 0.5 10*3 1.0-4.0 Blood monocytes automated count (number/volume) 0.3 10*3 0.0- 1.0 Automated eosinophil count 0.1 10*3/uL 0.0-0.3 Automated blood basophil count (count/volume) 0.0 10*3/uL 0.0-0.1 Comprehensive metabolic panel - 04/08/17 12:22 Serum or plasma sodium measurement (moles/volume) 139 mmol/L 135-145 Serum or plasma potassium measurement (moles/volume) 3.2 mmol/L 3.6-5.0 Serum or plasma chloride measurement (moles/volume) 105 mmol/L 98-107 Carbon dioxide 22 mmol/L 21-32 Serum or plasma anion gap determination (moles/volume) 12 mmol/L 5-14 Serum or plasma urea nitrogen measurement (mass/volume) 13 mg/dL 7-18 Serum or plasma creatinine measurement (mass/volume) 0.75 mg/dL 0.60-1.30 Serum or plasma urea nitrogen/creatinine mass ratio 17 NRG Serum or plasma creatinine measurement with calculation of estimated glomerular filtration rate > NRG Serum or plasma glucose measurement (mass/volume) 96 mg/dL 70-105 Serum or plasma calcium measurement (mass/volume) 8.3 mg/dL 8.5-10.1 Serum or plasma total bilirubin measurement (mass/volume) 0.6 mg/dL 0.1-1.0 Serum or plasma alkaline phosphatase measurement (enzymatic activity/volume) 134 U/L 40-136 Serum or plasma aspartate aminotransferase measurement (enzymatic activity/volume) 10 U/L 5-34 Serum or plasma alanine aminotransferase measurement (enzymatic activity/volume) 15 U/L 0-55 Serum or plasma protein measurement (mass/volume) 6.8 g/dL 6.4-8.2 Serum or plasma albumin measurement (mass/volume) 3.5 g/dL 3.2-4.5 Lipase - 04/08/17 12:22 Lipase < U/L 8-78 Blood manual differential performed detection - 04/08/17 12:22 Blood monocytes/100 leukocytes 2 % NR Manual blood segmented neutrophils/100 leukocytes 92 % NR Manual blood lymphocytes/100 leukocytes 3 % NR Manual eosinophils/100 leukocytes in nose 3 % NR Blood erythrocyte morphology finding identification NORMAL NR Complete urinalysis with reflex to culture - 04/08/17 12:53 Urine color determination YELLOW NRG Urine clarity determination CLEAR NRG Urine pH measurement by test strip 7 5-9 Specific gravity of urine by test strip 1.010 1.016-1.022 Urine protein assay by test strip, semi-quantitative NEGATIVE NEGATIVE Urine glucose detection by automated test strip NEGATIVE NEGATIVE Erythrocytes detection in urine sediment by light microscopy NEGATIVE NEGATIVE Urine ketones detection by automated test strip NEGATIVE NEGATIVE Urine nitrite detection by test strip NEGATIVE NEGATIVE Urine total bilirubin detection by test strip NEGATIVE NEGATIVE Urine urobilinogen measurement by automated test strip (mass/volume) NORMAL NORMAL Urine leukocyte esterase detection by dipstick 1+ NEGATIVE Automated urine sediment erythrocyte count by microscopy (number/high power field) NONE NRG Automated urine sediment leukocyte count by microscopy (number/high power field) [HPF] NRG Bacteria detection in urine sediment by light microscopy NEGATIVE NRG Squamous epithelial cells detection in urine sediment by light microscopy RARE NRG Crystals detection in urine sediment by light microscopy NONE NRG Casts detection in urine sediment by light microscopy NONE NRG Mucus detection in urine sediment by light microscopy NEGATIVE NRG Complete urinalysis with reflex to culture NO NRG Complete urinalysis with reflex to culture - 08/19/18 18:15 Urine color determination CANDACE NRG Urine clarity determination SLIGHTLY CLOUDY NRG Urine pH measurement by test strip 6 5-9 Specific gravity of urine by test strip 1.025 1.016-1.022 Urine protein assay by test strip, semi-quantitative 2+ NEGATIVE Urine glucose detection by automated test strip NEGATIVE NEGATIVE Erythrocytes detection in urine sediment by light microscopy NEGATIVE NEGATIVE Urine ketones detection by automated test strip 2+ NEGATIVE Urine nitrite detection by test strip NEGATIVE NEGATIVE Urine total bilirubin detection by test strip NEGATIVE NEGATIVE Urine urobilinogen measurement by automated test strip (mass/volume) 1 mg/dL NORMAL Urine leukocyte esterase detection by dipstick 1+ NEGATIVE Automated urine sediment erythrocyte count by microscopy (number/high power field) NONE NRG Automated urine sediment leukocyte count by microscopy (number/high power field) [HPF] NRG Bacteria detection in urine sediment by light microscopy FEW NRG Squamous epithelial cells detection in urine sediment by light microscopy >50 NRG Crystals detection in urine sediment by light microscopy NONE NRG Casts detection in urine sediment by light microscopy NONE NRG Mucus detection in urine sediment by light microscopy LARGE NRG Complete urinalysis with reflex to culture NO NRG Complete urinalysis with reflex to culture - 08/27/18 12:00 Urine color determination YELLOW NRG Urine clarity determination SLIGHTLY CLOUDY NRG Urine pH measurement by test strip 8 5-9 Specific gravity of urine by test strip 1.010 1.016-1.022 Urine protein assay by test strip, semi-quantitative NEGATIVE NEGATIVE Urine glucose detection by automated test strip NEGATIVE NEGATIVE Erythrocytes detection in urine sediment by light microscopy NEGATIVE NEGATIVE Urine ketones detection by automated test strip NEGATIVE NEGATIVE Urine nitrite detection by test strip NEGATIVE NEGATIVE Urine total bilirubin detection by test strip NEGATIVE NEGATIVE Urine urobilinogen measurement by automated test strip (mass/volume) NORMAL NORMAL Urine leukocyte esterase detection by dipstick 3+ NEGATIVE Automated urine sediment erythrocyte count by microscopy (number/high power field) NONE NRG Automated urine sediment leukocyte count by microscopy (number/high power field) [HPF] NRG Bacteria detection in urine sediment by light microscopy TRACE NRG Squamous epithelial cells detection in urine sediment by light microscopy 5-10 NRG Crystals detection in urine sediment by light microscopy NONE NRG Casts detection in urine sediment by light microscopy NONE NRG Mucus detection in urine sediment by light microscopy NEGATIVE NRG Complete urinalysis with reflex to culture YES NRG Bacterial urine culture - 08/27/18 12:00 Bacterial urine culture 3 OR MORE NRG COLONY COUNT 20,000 CFU/ML NRG FTX;REPORTABLE GRAM POSITIVES, SUGGESTING PROBABLE NRG FREE TEXT ENTRY 2 COLLECTION CONTAMINATION WITH SKIN NRG FREE TEXT ENTRY 3 CARLITA. NO SUSCEPTIBILITY PERFORMED. NRG Methicillin resistant Staphylococcus aureus (MRSA) screening culture - 09/04/18 14:30 Methicillin resistant Staphylococcus aureus (MRSA) screening culture NEG NRG Complete urinalysis with reflex to culture - 09/04/18 16:30 Urine color determination YELLOW NRG Urine clarity determination SLIGHTLY CLOUDY NRG Urine pH measurement by test strip 6 5-9 Specific gravity of urine by test strip 1.020 1.016-1.022 Urine protein assay by test strip, semi-quantitative 2+ NEGATIVE Urine glucose detection by automated test strip NEGATIVE NEGATIVE Erythrocytes detection in urine sediment by light microscopy 1+ NEGATIVE Urine ketones detection by automated test strip 1+ NEGATIVE Urine nitrite detection by test strip NEGATIVE NEGATIVE Urine total bilirubin detection by test strip 1+ NEGATIVE Urine urobilinogen measurement by automated test strip (mass/volume) 4 mg/dL NORMAL Urine leukocyte esterase detection by dipstick 3+ NEGATIVE Automated urine sediment erythrocyte count by microscopy (number/high power field) NONE NRG Automated urine sediment leukocyte count by microscopy (number/high power field) [HPF] NRG Bacteria detection in urine sediment by light microscopy FEW NRG Squamous epithelial cells detection in urine sediment by light microscopy 25-50 NRG Crystals detection in urine sediment by light microscopy NONE NRG Casts detection in urine sediment by light microscopy NONE NRG Mucus detection in urine sediment by light microscopy NEGATIVE NRG Complete urinalysis with reflex to culture CULTURE PENDING NRG Bacterial urine culture - 09/04/18 16:30 Bacterial urine culture 3 OR MORE NRG COLONY COUNT >100,000/ML NRG FTX;REPORTABLE GRAM POSITIVE ISOLATES; SUGGESTING NRG FREE TEXT ENTRY 2 PROBABLE COLLECTION CONTAMINATION WITH NRG FREE TEXT ENTRY 3 SKIN CARLITA. NO SUSCEPTIBILITY PERFORMED. [facility] Complete blood count (CBC) with automated white blood cell (WBC) differential - 09/04/18 16:52 Blood leukocytes automated count (number/volume) 8.3 10*3/uL 4.3-11.0 Blood erythrocytes automated count (number/volume) 4.01 10*6/uL 4.35-5.85 Venous blood hemoglobin measurement (mass/volume) 10.4 g/dL 11.5-16.0 Blood hematocrit (volume fraction) 31 % 35-52 Automated erythrocyte mean corpuscular volume 77 [foz_us] 80-99 Automated erythrocyte mean corpuscular hemoglobin (mass per erythrocyte) 26 pg 25-34 Automated erythrocyte mean corpuscular hemoglobin concentration measurement (mass/volume) 34 g/dL 32-36 Automated erythrocyte distribution width ratio 13.2 % 10.0- 14.5 Automated blood platelet count (count/volume) 217 10*3/uL 130-400 Automated blood platelet mean volume measurement 11.5 [foz_us] 7.4-10.4 Automated blood neutrophils/100 leukocytes 73 % 42-75 Automated blood lymphocytes/100 leukocytes 17 % 12-44 Blood monocytes/100 leukocytes 9 % 0-12 Automated blood eosinophils/100 leukocytes 1 % 0-10 Automated blood basophils/100 leukocytes 0 % 0-10 Blood neutrophils automated count (number/volume) 6.0 10*3 1.8-7.8 Blood lymphocytes automated count (number/volume) 1.4 10*3 1.0-4.0 Blood monocytes automated count (number/volume) 0.7 10*3 0.0- 1.0 Automated eosinophil count 0.1 10*3/uL 0.0-0.3 Automated blood basophil count (count/volume) 0.0 10*3/uL 0.0-0.1 Comprehensive metabolic panel - 09/04/18 16:52 Serum or plasma sodium measurement (moles/volume) 138 mmol/L 135-145 Serum or plasma potassium measurement (moles/volume) 3.5 mmol/L 3.6-5.0 Serum or plasma chloride measurement (moles/volume) 106 mmol/L 98-107 Carbon dioxide 19 mmol/L 21-32 Serum or plasma anion gap determination (moles/volume) 13 mmol/L 5-14 Serum or plasma urea nitrogen measurement (mass/volume) 5 mg/dL 7-18 Serum or plasma creatinine measurement (mass/volume) 0.61 mg/dL 0.60-1.30 Serum or plasma urea nitrogen/creatinine mass ratio 8 NRG Serum or plasma creatinine measurement with calculation of estimated glomerular filtration rate > NRG Serum or plasma glucose measurement (mass/volume) 94 mg/dL 70-105 Serum or plasma calcium measurement (mass/volume) 8.3 mg/dL 8.5-10.1 Serum or plasma total bilirubin measurement (mass/volume) 0.5 mg/dL 0.1-1.0 Serum or plasma alkaline phosphatase measurement (enzymatic activity/volume) 164 U/L 40-136 Serum or plasma aspartate aminotransferase measurement (enzymatic activity/volume) 13 U/L 5-34 Serum or plasma alanine aminotransferase measurement (enzymatic activity/volume) 17 U/L 0-55 Serum or plasma protein measurement (mass/volume) 6.0 g/dL 6.4-8.2 Serum or plasma albumin measurement (mass/volume) 3.1 g/dL 3.2-4.5 CALCIUM CORRECTED 9.0 mg/dL 8.5-10.1 Serum or plasma uric acid measurement (mass/volume) - 09/04/18 16:52 Serum or plasma uric acid measurement (mass/volume) 5.0 mg/dL 2.6-7.2 Blood type T Indirect antibody screen panel - 09/04/18 16:52 ABO+Rh group AN NR Transfusion band number [id number] NR Blood group antibody screen NEGATIVE NRG Urine protein/creatinine mass ratio - 09/04/18 17:50 Urine protein measurement (mass/volume) 20 mg/dL 6-12 Urine creatinine measurement (mass/volume) 177 mg/dL 30-125 Urine protein/creatinine mass ratio 0.11 NRG Encounters ACCT No. Visit Date/Time Discharge Status Pt. Type Provider Facility Loc./Unit Complaint [id number] 09/04/2018 16:32:00 09/04/2018 20:54:00 DIS Outpatient NEY BERMUDEZ DO [facility] WSo ELEVATED BLOOD PRESSURE [id number] 09/04/2018 14:30:00 09/04/2018 15:32:00 DIS Outpatient NEY BERMUDEZ DO [facility] PREOP PREVIOUS [id number] 08/27/2018 12:09:00 08/27/2018 16:55:00 DIS Outpatient NEY BERMUDEZ DO [facility] WSo POSSIBLE WATER BREAK [id number] 08/19/2018 18:13:00 08/19/2018 21:30:00 DIS Outpatient SEALS PAYAM BHATIA [facility]So CONTRACTIONS [id number] 06/25/2018 21:30:00 06/25/2018 23:59:59 CLS [facility] [id number] 05/02/2018 15:28:00 05/02/2018 23:59:59 CLS Outpatient NEY BERMUDEZ DO [facility] RAD [id number] 07/06/2017 08:19:00 07/06/2017 23:59:59 CLS Outpatient DASHAWN DE LUNA [facility] RAD R10.11 RUQ PAIN [id number] 05/21/2017 10:00:00 05/21/2017 23:59:59 CLS Preadmit SAMUEL ASHLEY MD [facility] RAD HYPERTENSION DUE TO [id number] 03/26/2017 09:46:00 05/20/2017 00:01:00 DIS Outpatient SAMUEL ASHLEY MD [facility] RAD HYPERTENSION DUE TO [id number] 04/08/2017 11:20:00 04/08/2017 13:48:00 DIS Emergency PRICE DOWNEY MD [facility] ER POST C SECTION/FEVER//BREAST PAIN [id number] 03/26/2017 19:35:00 03/29/2017 17:00:00 DIS Inpatient SAMUEL ASHLEY MD [facility] LDRP INDUCTION [id number] 03/20/2017 11:25:00 03/21/2017 09:45:00 DIS Inpatient SAMUEL ASHLEY MD [facility] LDRP CONTRACTIONS;POSSIBLE LABOR [id number] 02/19/2017 12:45:00 02/19/2017 23:59:59 CLS Preadmit SAMUEL ASHLEY MD [facility] RAD O13.3 INDUCED HTN [id number] 02/19/2017 11:08:00 02/19/2017 23:59:59 CLS Preadmit SMAUEL ASHLEY MD [facility] RAD O13.3 [id number] 01/16/2017 09:49:00 01/16/2017 23:59:59 CLS Outpatient SAMUEL ASHLEY MD [facility] RAD O13.3 [id number] 01/05/2017 17:47:00 01/05/2017 20:20:00 DIS Outpatient MANJU SULLIVAN DO [facility] WSo PREECLAMPSIA,DECREASED MOVEMENT,ELEV BP [id number] 01/02/2017 12:45:00 01/02/2017 15:33:00 DIS Outpatient SAMUEL ASHLEY MD [facility] WSo RULING OUT PREECLAMPSIA [id number] 11/27/2016 15:09:00 11/27/2016 23:59:59 CLS Outpatient SAMUEL ASHLEY MD [facility] RAD Z36 [id number] 11/03/2016 12:15:00 11/03/2016 23:59:59 CLS Outpatient SAMUEL ASHLEY MD [facility] RAD Z34.92 SECOND TRIMESTER PREG [id number] 09/26/2016 16:37:00 09/26/2016 23:59:59 CLS Outpatient SAMUEL ASHLEY MD [facility] RAD HEARTBEAT NOT HEARD [id number] 08/24/2016 13:10:00 08/24/2016 23:59:59 CLS Outpatient SAMUEL ASHLEY MD [facility] RAD Z34.00 NORMAL PREG,FIRST [id number] 03/20/2016 14:38:00 03/20/2016 23:59:59 CLS Outpatient 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 APRN [facility] RAD RUQ PAIN, NAUSEA/VOMITING [id number] 09/10/2018 12:00:00 PEN Preadmit NEY BERMUDEZ DO PREVIOUS
[2018-09-10] MEDS ORDERED: TETANUS,DIPTH,PERTUSS P/F (BOOSTRIX) 0.5 ML VIAL IM SCH (11:45)
[2018-09-10] MEDS ORDERED: MEASLES,MUMPS,RUBELLA 1 EA INJ SC SCH (11:45)
[2018-09-10] MEDS ORDERED: ONDANSETRON 4 MG/2 ML (SDV) Z0FRAN IVP PRN (11:45)
--- NOTE | 2018-09-10 11:45 | History & Physical-OB ---
OB - Chief Complaint & HPI Date/Time Date of Admission: Date of Admission: September 10, 2018 at 10:10 Date seen by a Provider: September 10, 2018 Time Seen by a Provider: 11:45 Chief Complaint/History OB-Reason for Admission/Chief: Section Hx : 2 Hx Para: 1 Expected Date of Delivery: Sep 14, 2018 Gestational Age in Weeks: 39 Gestational Age in Days: 3 Indication for : desires repeat Admission Nurse Assessment Rev: Yes History of Labs A neg Antibody neg RI RPR NR HBsAg NR HIV NR GC neg GBS neg Allergies and Home Medications Allergies Coded Allergies: No Known Drug Allergies (Unverified , 09/04/18) Home Medications Lyt904/Iron Fumarate/FA/Dss 1 Each Tablet, 1 EACH PO DAILY, (Reported) Patient Home Medication List Home Medication List Reviewed: Yes OB - History Hx of Present Care: Yes Ultrasounds: Normal mid trimester US Obstetrical Complications: None Medical Complications: None Delivery History Adverse Rxn to Tranfusion: No (N/A) Patient Past Medical History PMHx: Denies Social History/Family History HIV/AIDS: No Sexually Transmitted Disease: No Immunizations Tetanus Booster (TDap): Less than 5yrs Date of Influenza Vaccine: May 28, 2018 OB - Admission Exam Physical Exam HEENT: NCAT Heart: Rhythm Normal Lungs: Clear Abdomen: Gravid Extremities: Normal Reflexes: Normal Heart Rate: 130's Accelerations: Accelerations Present Decelerations: No Decelerations Short Term Variability: Present Assisted Variability: Average (6-25) Contractions on Admission: >10 Minutes Apart Labs Laboratory Tests Test 09/10/18 10:55 Range/Units White Blood Count 9.0 4.3-11.0 10^3/uL Red Blood Count 4.21 L 4.35-5.85 10^6/uL Hemoglobin 10.6 L 11.5-16.0 G/DL Hematocrit 32 L 35-52 % Mean Corpuscular Volume 77 L 80-99 FL Mean Corpuscular Hemoglobin 25 25-34 PG Mean Corpuscular Hemoglobin Concent 33 32-36 G/DL Red Cell Distribution Width 13.3 10.0-14.5 % Platelet Count 225 130-400 10^3/uL Mean Platelet Volume 11.7 H 7.4-10.4 FL Neutrophils (%) (Auto) 81 H 42-75 % Lymphocytes (%) (Auto) 12 12-44 % Monocytes (%) (Auto) 6 0-12 % Eosinophils (%) (Auto) 0 0-10 % Basophils (%) (Auto) 0 0-10 % Neutrophils # (Auto) 7.3 1.8-7.8 X 10^3 Lymphocytes # (Auto) 1.1 1.0-4.0 X 10^3 Monocytes # (Auto) 0.6 0.0-1.0 X 10^3 Eosinophils # (Auto) 0.0 0.0-0.3 10^3/uL Basophils # (Auto) 0.0 0.0-0.1 10^3/uL OB - Assessment/Plan/Diagnosis Assessment Assessment: section Admission Dx 18 yo @ 39 weeks Previous GBS neg Admission Status: Inpatient Order (span 2 midnights) Reason for Inpatient Admission: Repeat Plan Plan: Section NEY BERMUDEZ DO September 10, 2018 11:45
[2018-09-10] MEDS ORDERED: KETOROLAC 30 MG/ML VIAL ONE (11:49)
[2018-09-10] MEDS ORDERED: OXYTOCIN/NORMAL SALINE 1,000 ML IV ONE (11:49)
[2018-09-10] MEDS ORDERED: ONDANSETRON 4 MG/2 ML (SDV) Z0FRAN ONE (11:49)
[2018-09-10] MEDS ORDERED: fentaNYL INJECTION 100 MCG/2 ML AMP ONE (11:49)
--- NOTE | 2018-09-10 11:55 | Discharge Inst-Women's Service ---
Discharge Inst-Women's Serv Depart Medication/Instructions New, Converted or Re-Newed RX: RX on Chart Final Diagnosis POD 2 RLTCS Consults/Follow Up Additional Follow Up: Yes Orders/Referrals Dr. Saha in 7-10 days, and in 6 weeks Activity Activity: Activity as Tolerated Driving Instructions: No Driving for 1 Week NO SMOKING: NO SMOKING Nothing Inside Vagina: No Douching, No [place], No Tampons Diet Discharge Diet: No Restrictions Symptoms to Report to : Bleeding Excessive, Pain Increased, Fever Over 101 Degrees F, Vaginal Bleeding Increase, Questions/Concerns For Any Problems or Questions: Contact Your Physician Skin/Wound Care Infection Signs and Symptoms: Increased Redness, Foul Odor of Wound, Increased Drainage, Skin Itchy or Has a Rash, Increased Swelling, Temperature Above 101 F Operative Area Clean and Dry: Keep Incision Clean/Dry Stitches/[place]/Dermabond: Dermabond, Care of Stitches Bathing Instructions: ENY Hansen DO September 10, 2018 11:55
[2018-09-10] MEDS ORDERED: DOCU100C37 PO (11:56)
[2018-09-10] MEDS ORDERED: IBUP-844 PO (11:56)
[2018-09-10] MEDS ORDERED: ACHD5005 PO (11:56)
[2018-09-10] MEDS: IBUPROFEN 600 MG (MOTRIN) TAB PO SCH ×2 (12:00→18:42)
[2018-09-10] MEDS ORDERED: BUPIVACAINE SPINAL 0.75% (SENSORCAINE) 2 ML AMP ONE (12:30)
[2018-09-10] MEDS ORDERED: LIDOCAINE PF 2% 5 ML (XYLOCAINE) VIAL ONE (12:30)
[2018-09-10] MEDS ORDERED: BUPIVACAINE 0.25% 30 ML (SENSORCAINE) VIAL ONE (12:52)
[2018-09-10] MEDS: CATHETER FLUSH 10 ML SYR IV SCH ×2 (14:00→18:43)
[2018-09-10] MEDS: OXYTOCIN/NORMAL SALINE 500 ML IV SCH ×2 (14:20→15:45)
[2018-09-10] MEDS: HYDROcodone/APAP 5 MG/325 MG (LORTAB) TAB PO PRN ×2 (15:10→22:40)
--- NOTE | 2018-09-10 16:26 | OPERATIVE REPORT ---
DATE OF SERVICE: 09/10/2018 PREOPERATIVE DIAGNOSES: 1. A 18-year-old G2, P1 at 39 weeks gestation. 2. Previous section. POSTOPERATIVE DIAGNOSES: 1. A 18-year-old G2, P1 at 39 weeks gestation. 2. Previous section. PROCEDURE: Repeat low transverse section. SURGEON: Tony Bermudez DO ANESTHESIA: Spinal. ESTIMATED BLOOD LOSS: 200 mL. URINE OUTPUT: 30 mL clear drained at the end of the procedure. FLUIDS: 1500 mL of lactated Ringer's solution. FINDINGS: A live female weighing 7 pounds 5 ounces, Apgars of 8 and 9. Grossly normal appearing uterus, bilateral fallopian tubes and ovaries. SPECIMENS SENT: None. INDICATION FOR PROCEDURE: This 18-year-old female is a patient that had sought care in my office. She had been counseled throughout her care about versus repeat . She had opted earlier in the for repeat . The patient was well aware of risk, but they were reviewed with the patient again during her care and in the preoperative holding area where the consent was obtained after being reviewed with the patient and the patient was taken to the operating room. OPERATIVE REPORT IN DETAIL: Once in the operating room, spinal anesthesia was found to be adequate. She was then placed in the supine position with leftward tilt, prepped and draped in normal sterile fashion. A timeout was performed and anesthesia was tested. I then make a Pfannenstiel skin incision through the previous existing scar using knife and carried down to underlying fascia using Bovie cautery. The fascial incision extended laterally using Bovie cautery. The superior aspect of the fascial incision was then grasped with Tamara clamps, tented up and dissected off the underlying rectus muscle. The inferior aspect of the fascial incision was then grasped with Tamara clamps, tented up and dissected off the underlying rectus muscles. The rectus muscles were dissected down the midline using blunt traction, which exposed the peritoneum, which I entered bluntly and extended using blunt traction. Oswald ring retractor placed in the peritoneal incision, which offered excellent lateral sidewall retraction. I then identified the lower uterine segment, which was found to be thinned out. I made a low transverse incision through the vesicouterine peritoneum and bluntly dissected this off the lower uterine segment. I proceeded with my myotomy until membranes are visualized, at which point I extended the uterine incision laterally and superiorly using bandage scissors. Amniotomy was then performed. Clear fluid was noted. The surgeon's hand was then placed beneath the 's head. With gentle fundal pressure, the 's head was elevated up to the incision where it was delivered. The nares and oropharynx were then bulb suctioned. A nuchal cord was reduced x1. Anterior and posterior shoulders were delivered and the was then brought onto the operative field where the cord was doubly clamped and cut and infant was handed off to the waiting nurses in attendance. Cord blood was collected. Three-vessel cord with intact placenta was delivered spontaneously thereafter. IV Pitocin was initiated to facilitate uterine contraction. Uterine fundus was confirmed with bimanual massage. The uterus was then exteriorized and cleared of endometrial clots and debris. I then closed the uterine incision using 0 Vicryl suture in a running locked fashion. Second layer of imbricating 0 Monocryl was placed. Excellent hemostasis was noted after doing this. The Uterus had been placed back within the pelvis, where it was copiously irrigated and there was no active bleeding noted from any of my dissection planes. I placed Interceed antiadhesive over my low transverse incision. I then proceeded with closing the peritoneum after I removed the Oswald ring retractor. The peritoneum was reapproximated using 3-0 Vicryl suture in running fashion. The rectus muscle was reapproximated using 3-0 Vicryl suture in interrupted fashion. The fascia was reapproximated using 0 Vicryl suture in running fashion. Subcutaneous tissue was reapproximated using 3-0 plain interrupted subcutaneous stitch and skin reapproximated using 4-0 Monocryl in a running subcuticular. Dermabond was applied to the incision and sterile dressing with adhesive white tape. The patient tolerated the procedure well and was taken to recovery area in stable condition. Lap and sponge counts were correct at the end of the procedure. Instrument counts were correct as well. Two grams of Ancef given preoperatively for infection prophylaxis. Job ID: [id number] DocumentID: [id number] Dictated Date: 09/10/2018 12:56:38 Medical Assistant Prn Date: 09/10/2018 16:25:58 Dictated By: TONY BERMUDEZ DO
[2018-09-10] MEDS: DOCUSATE SODIUM 100 MG (COLACE) CAP PO SCH (20:09)
[2018-09-11 00:48] VITALS: BP 110/61
[2018-09-11] MEDS: IBUPROFEN 600 MG (MOTRIN) TAB PO SCH ×4 (00:48→18:30)
[2018-09-11 04:24] VITALS: BP 124/75
[2018-09-11] MEDS: HYDROcodone/APAP 5 MG/325 MG (LORTAB) TAB PO PRN ×3 (04:24→18:30)
[2018-09-11 06:25] LABS: BASOPHILS % (AUTO) 0 % (0-10); EOSINOPHILS # (AUTO) 0.1 10^3/uL (0.0-0.3); EOSINOPHILS % (AUTO) 1 % (0-10); HEMATOCRIT 30 % (35-52); HEMOGLOBIN 9.6 G/DL (11.5-16.0); LYMPHOCYTES # (AUTO) 1.8 X 10^3 (1.0-4.0); LYMPHOCYTES % (AUTO) 17 % (12-44); MEAN CORPUSCULAR HEMOGLOBIN 25 PG (25-34); MEAN CORPUSCULAR HGB CONC 33 G/DL (32-36); MEAN CORPUSCULAR VOLUME 78 FL (80-99); MEAN PLATELET VOLUME 11.9 FL (7.4-10.4); MONOCYTES # (AUTO) 0.9 X 10^3 (0.0-1.0); MONOCYTES % (AUTO) 9 % (0-12); NEUTROPHILS # (AUTO) 7.4 X 10^3 (1.8-7.8); NEUTROPHILS % (AUTO) 73 % (42-75); PLATELET COUNT 179 10^3/uL (130-400); RED CELL DISTRIBUTION WIDTH 13.6 % (10.0-14.5); WHITE BLOOD COUNT 10.2 10^3/uL (4.3-11.0)
--- NOTE | 2018-09-11 08:06 | Postpartum Progress Note ---
Note Note Day # 1 Subjective: Patient is without complaints. Ambulating, voiding. Tolerating a regular diet without nausea or vomiting. Normal lochia. Pain is well controlled with oral pain medications. Objective: Physical Exam: General - Alert and oriented, no apparent distress Abdomen - Soft, appropriately tender to palpation, non-distended, fundus firm at umbilicus Extremities - no edema, negative John's bilaterally Incision- c/d/i Assessment: POD 1 RLTCS Acute blood loss anemia Plan: Routine care. Encourage breast feeding. Encourage ambulation. Ferrous sulfate supplementation. Plan for discharge tomorrow Vitals - Labs Vital Signs - I&O Vital Signs Date Time Temp Pulse Resp B/P (MAP) Pulse Ox O2 Delivery O2 Flow Rate FiO2 09/11/18 04:24 98.3 55 18 124/75 (91) 99 Room Air 09/11/18 00:48 98.0 55 18 110/61 (77) 98 Room Air 09/10/18 20:09 98.3 66 18 120/67 (84) 98 Room Air 09/10/18 16:00 98.0 60 18 121/79 (93) 98 Room Air 09/10/18 14:40 97.4 61 20 109/68 (82) 99 Room Air 09/10/18 13:45 97.5 20 100 09/10/18 13:30 97.8 20 100 Room Air 09/10/18 13:20 97.4 20 99 Room Air 09/10/18 13:05 97.4 16 98 Room Air I & O 09/11/18 07:00 Intake Total 3990 ml Output Total 2280 ml Balance 1710 ml Labs Laboratory Tests 09/10/18 10:55: White Blood Count 9.0, Red Blood Count 4.21L, Hemoglobin 10.6L, Hematocrit 32L, Mean Corpuscular Volume 77L, Mean Corpuscular Hemoglobin 25, Mean Corpuscular Hemoglobin Concent 33, Red Cell Distribution Width 13.3, Platelet Count 225, Mean Platelet Volume 11.7H, Neutrophils (%) (Auto) 81H, Lymphocytes (%) (Auto) 12, Monocytes (%) (Auto) 6, Eosinophils (%) (Auto) 0, Basophils (%) (Auto) 0, Neutrophils # (Auto) 7.3, Lymphocytes # (Auto) 1.1, Monocytes # (Auto) 0.6, Eosinophils # (Auto) 0.0, Basophils # (Auto) 0.0 09/11/18 06:10: White Blood Count 10.2, Red Blood Count 3.77L, Hemoglobin 9.6L, Hematocrit 30L, Mean Corpuscular Volume 78L, Mean Corpuscular Hemoglobin 25, Mean Corpuscular Hemoglobin Concent 33, Red Cell Distribution Width 13.6, Platelet Count 179, Mean Platelet Volume 11.9H, Neutrophils (%) (Auto) 73, Lymphocytes (%) (Auto) 17, Monocytes (%) (Auto) 9, Eosinophils (%) (Auto) 1, Basophils (%) (Auto) 0, Neutrophils # (Auto) 7.4, Lymphocytes # (Auto) 1.8, Monocytes # (Auto) 0.9, Eosinophils # (Auto) 0.1, Basophils # (Auto) 0.0 NEY BERMUDEZ DO September 11, 2018 08:06
--- NOTE | 2018-09-11 08:15 | NUR ---
Dr. Saha here to see pt. No new orders rec'd.
[2018-09-11 08:30] VITALS: BP 112/58
[2018-09-11 12:34] VITALS: BP 137/82
[2018-09-11] MEDS: DOCUSATE SODIUM 100 MG (COLACE) CAP PO SCH ×2 (12:35→19:56)
--- NOTE | 2018-09-11 13:14 | Anesthesia-Regional Post-Op ---
Regional Patient Condition Mental Status: Alert, Oriented x3 Circulation: Same as Pre-Op Headache: Absent Sensation: Full Recovery Motor Block: Absent Post Op Complications Complications None Follow Up Care/Instructions Patient Instructions None needed. Anesthesia/Patient Condition Patient is doing well, no complaints, stable vital signs, no apparent adverse anesthesia problems. WALLY BUCIO DO September 11, 2018 13:14
[2018-09-11 19:56] VITALS: BP 126/76
[2018-09-12 01:27] VITALS: BP 132/76
[2018-09-12] MEDS: IBUPROFEN 600 MG (MOTRIN) TAB PO SCH ×3 (01:27→14:00)
[2018-09-12] MEDS: HYDROcodone/APAP 5 MG/325 MG (LORTAB) TAB PO PRN ×3 (01:27→14:00)
--- NOTE | 2018-09-12 07:15 | Postpartum Progress Note ---
Note Note Day # 2 Subjective: Patient is without complaints. Ambulating, voiding. Tolerating a regular diet without nausea or vomiting. Normal lochia. Pain is well controlled with oral pain medications. Objective: Physical Exam: General - Alert and oriented, no apparent distress Abdomen - Soft, appropriately tender to palpation, non-distended, fundus firm at umbilicus Extremities - no edema, negative John's bilaterally Incision- c/d/i Assessment: POD 2 RLTCS Acute blood loss anemia Plan: Routine care. Encourage breast feeding. Encourage ambulation. Ferrous sulfate supplementation. Plan for discharge today Vitals - Labs Vital Signs - I&O Vital Signs Date Time Temp Pulse Resp B/P (MAP) Pulse Ox O2 Delivery O2 Flow Rate FiO2 09/12/18 01:27 97.6 57 18 132/76 (94) 97 Room Air 09/11/18 19:56 97.3 56 18 126/76 (93) 98 09/11/18 12:34 97.6 58 18 137/82 (100) 98 09/11/18 08:30 98.1 74 18 112/58 (76) 98 Room Air I & O 09/12/18 07:00 Intake Total 1520 ml Balance 1520 ml NEY BERMUDEZ DO September 12, 2018 07:15
[2018-09-12 08:00] VITALS: BP 131/74
--- NOTE | 2018-09-12 08:00 | NUR ---
A.M. ASSESSMENT COMPLETED. VSS. OFFERED AB BINDER. WANTS TO WAIT UNTIL LATER.
[2018-09-12] MEDS: DOCUSATE SODIUM 100 MG (COLACE) CAP PO SCH (08:04)
--- NOTE | 2018-09-12 08:16 | NUR ---
TDAP GIVEN IM IN LEFT DELTOID. SITE CLEAR.
--- NOTE | 2018-09-12 12:00 | NUR ---
CONTINUES TO CARE FOR IN ROOM.
--- NOTE | 2018-09-12 13:55 | NUR ---
DISCHARGE INSTRUCTIONS REVIEWED WITH COPY TO PT. RXS GIVEN. STATES UNDERSTANDING OF ALL INSTRUCTIONS AND NEED TO F/U SCHEDULED AND NEEDED.
[2018-09-12 14:25] VITALS: BP 131/74
--- NOTE | 2018-09-12 14:25 | NUR ---
DISMISSED FROM [facility] WITH INFANT IN STABLE CONDITION TO FAMILY CAR ACC BY SPOUSE AND MOE IBARRA RN.
== END 2018-09-12 14:25 | disposition home or self-care (01) | DRG 787 ==
LOC: LDRP 10:10 → WS 15:08 → LDRP 15:13
PROVIDERS: ADMIT Obstetrics & Gynecology; ATTEND Obstetrics & Gynecology
PROC: 10D00Z1 Extraction of Products of Conception, Low, Open Approach (ICD-10-PCS; principal; 2018-09-10 11:25)
DX: O34.211 Maternal care for low transverse scar from previous cesarean delivery (principal); O99.03 Anemia complicating the puerperium; D62 Acute posthemorrhagic anemia; O69.81X0 Labor and delivery complicated by cord around neck, without compression, not applicable or unspecified; Z3A.39 39 weeks gestation of pregnancy; Z37.0 Single live birth
CPT/HCPCS: 36415; 85025; 86850; 86900; 86901; 90715; 94664